=== PATIENT | female | born 1980 | race Caucasian/White ===

== ENCOUNTER → 2017-11-26 16:26 | Outpatient (CLI) | payer OTHER, SELFPAY ==
[2017-11-26 17:40] LABS: Absolute Lymphocyte Count 2.09 X10^3/ul (0.83-4.51); Absolute Neutrophil Count 5.1 X10^3/uL (2.0-7.7); Basophil# 0.02 X10^3/uL; Basophil% 0.3 % (0-1); Eosinophil# 0.18 X10^3/uL; Eosinophils% 2.3 % (0-5); Hematocrit 42.3 % (37-47); Hemoglobin 14.1 g/dl (12.0-15.0); Lymphocyte # 2.09 X10^3/ul (4.0); Lymphocyte % 26.7 % (19-41); Mean Corp Hgb Conc 33.3 g/gl (32-36); Mean Corpuscular Hgb 30.1 pg (27.0-32.0); Mean Corpuscular Volume 90.4 fL (81-99); Mean Platelet Vol. 10.7 fl (6.2-12.0); Monocyte# 0.43 X10^3/uL; Monocyte% 5.5 % (0-10); Neutrophil # 5.08 X10^3/uL (2.7-7.7); Neutrophil % 64.9 % (47-70); Platelet Count 174 K/mm3 (150-450); RBC Distribution Width SD 42.7 fl (35.1-43.9); Red Blood Count 4.68 M/mm3 (4.2-5.4); White Blood Count 7.8 K/mm3 (4.4-11.0)
[2017-11-26 18:05] LABS: POSITIVE COUNT NO; POSITIVE DIFFERENTIAL NO; POSITIVE MORPHOLOGY NO
== END ==
PROVIDERS: Family Provider Family Medicine; PCP Family Medicine; Visit Provider Family Medicine
DX: N92.1 Excessive and frequent menstruation with irregular cycle (principal)
CPT/HCPCS: 36415; 85025

== ENCOUNTER → 2017-12-02 07:54 | Outpatient (CLI) | payer OTHER, SELFPAY ==
--- NOTE | 2017-12-02 07:58 | US_ITS ---
STUDY: ABDOMINAL ULTRASOUND REASON FOR EXAM: Female, 36 years old. Right upper quadrant pain. TECHNIQUE: Transabdominal ultrasound was performed with real-time and static stubbs scale imaging. TECHNICAL QUALITY: Adequate. COMPARISON: None. FINDINGS: Liver: The liver measures 16 cm. There is normal echogenicity of the liver. The bile ducts are within normal limits. There is hepatic color flow. The direction of portal flow is hepatopetal. There is no demonstrated mass lesion. Portal vein measurement: Gallbladder: Normal distended gallbladder. The gallbladder wall measures 1.6 mm. There is a negative sonographic Honeycutt's sign. There is no pericholecystic fluid. There are no gallstones. Common Bile Duct (C.B.D.): The common bile duct measures 4.2 mm. Pancreas: Normal size of the head, body and tail of the pancreas. There is normal echogenicity of the pancreas. There is no demonstrated pancreatic mass or cyst. Spleen: Normal size of the spleen. The spleen measures 9.6 cm. Right Kidney: Normal size of the right kidney. The right kidney measures 10.2 cm. Normal renal cortex. The right cortex measures 1.7 cm. There is no demonstrated renal mass or cyst. There is no right hydronephrosis. Left Kidney: Normal size of the left kidney. The left kidney measures 10.2 cm. Normal renal cortex. The left cortex measures 1.1 cm. There is no demonstrated renal mass or cyst. There is no left hydronephrosis. Aorta: 1.9 cm I.V.C.: The IVC is patent. There is no ascites. US/Abdomen Complete IMPRESSION: Normal abdominal ultrasound examination. Electronically Signed: Franco Strickland MD at 9:23 EDT , Service support ,
== END ==
PROVIDERS: Family Provider Family Medicine; PCP Family Medicine; Visit Provider Family Medicine
DX: R10.11 Right upper quadrant pain (principal)
CPT/HCPCS: 76700

== ENCOUNTER → 2018-02-09 10:54 | Outpatient (CLI) | payer OTHER, SELFPAY ==
[2018-02-09 11:34] LABS: Absolute Lymphocyte Count 1.22 X10^3/ul (0.83-4.51); Absolute Neutrophil Count 4.2 X10^3/uL (2.0-7.7); Basophil# 0.01 X10^3/uL; Basophil% 0.2 % (0-1); Eosinophil# 0.07 X10^3/uL; Eosinophils% 1.2 % (0-5); Hemoglobin 13.5 g/dl (12.0-15.0); Lymphocyte # 1.22 X10^3/ul (4.0); Lymphocyte % 20.9 % (19-41); Mean Corp Hgb Conc 32.9 g/gl (32-36); Mean Corpuscular Hgb 29.9 pg (27.0-32.0); Mean Corpuscular Volume 90.9 fL (81-99); Mean Platelet Vol. 11.1 fl (6.2-12.0); Monocyte# 0.36 X10^3/uL; Monocyte% 6.2 % (0-10); Neutrophil # 4.17 X10^3/uL (2.7-7.7); Neutrophil % 71.3 % (47-70); Platelet Count 159 K/mm3 (150-450); RBC Distribution Width CV 12.8 % (11.6-14.6); RBC Distribution Width SD 42.3 fl (35.1-43.9); Red Blood Count 4.51 M/mm3 (4.2-5.4); White Blood Count 5.8 K/mm3 (4.4-11.0)
[2018-02-09 11:39] LABS: POSITIVE COUNT NO; POSITIVE DIFFERENTIAL NO; POSITIVE MORPHOLOGY NO
[2018-02-09 11:58] LABS: Anion Gap 7 (5-15); BUN 7 mg/dL (7-18); BUN/Creat Ratio 9.3 RATIO (10-20); Calcium,Total 8.5 mg/dL (8.5-10.1); Chloride 108 mmol/L (98-107); Creatinine, Serum 0.75 mg/dL (0.55-1.02); EST Glomerular Filtration Rate 92 mL/min (>60); Est Glom Filt Rate - Afr Amer 111 mL/min (>60); Glucose 83 mg/dL (74-106); Magnesium 2.1 mg/dL (1.6-2.6); Potassium 3.8 mmol/L (3.5-5.1); Sodium Level 142 mmol/L (136-145); Thyroid Stim Hormone (TSH) 0.75 uIU/mL (0.358-3.74)
== END ==
PROVIDERS: Family Provider Family Medicine; PCP Family Medicine; Visit Provider Internal Medicine Cardiovascular Disease
DX: I47.1 Supraventricular tachycardia (principal)
CPT/HCPCS: 36415; 80048; 83735; 84443; 85025

== ENCOUNTER → 2018-02-10 12:43 | Outpatient (CLI) | payer OTHER, SELFPAY | PROVIDERS: Family Provider Family Medicine; PCP Family Medicine; Visit Provider Internal Medicine Cardiovascular Disease | DX: I47.1 Supraventricular tachycardia (principal) | CPT/HCPCS: 93225; 93226; 93306 ==

== ENCOUNTER → 2018-08-01 14:05 | Outpatient (CLI) | payer OTHER, SELFPAY ==
[2018-08-01 11:43] VITALS: BMI 23.6
[2018-08-01 15:05] LABS: Bacteria 0 SEEN /hpf (None Seen); Mucous, Urine 0 SEEN /hpf (<or=2+); White Blood Cells 0 SEEN /hpf (0-5)
[2018-08-01 15:52] LABS: Color, Urine Yellow (Yellow); Glucose, Dipstick Normal (Normal); Ketone-Dipstick Negative (Negative); Leukocyte Esterase-Dipstick Negative /ul (Negative); Nitrite-Dipstick Negative (Negative); Occult Blood-Urine 250 /ul (Negative); Protein-Dipstick 15 mg/dl (Negative); Specific Gravity, Urine 1.005 (1.002-1.030); Urine Bilirubin Dipstick Negative (Negative); Urine Clarity Clear (Clear); Urine Urobilinogen Normal (Normal)
[2018-08-01 17:19] LABS: Red Blood Cells-Urine 10-25 SEEN /hpf (0-5); Squamous Epithelial Cells - UA 0-5 SEEN /hpf (5-10)
== END ==
PROVIDERS: Family Provider Family Medicine; PCP Family Medicine; Referring Provider Physician Assistant Surgical; Visit Provider Physician Assistant Surgical
DX: R31.9 Hematuria, unspecified (principal)
CPT/HCPCS: 81001; 87086; 87088

== ENCOUNTER → 2018-08-11 06:42 | Outpatient (CLI) | payer OTHER, SELFPAY ==
[2018-08-01 11:43] VITALS: BMI 23.6
--- NOTE | 2018-08-11 06:48 | CT_ITS ---
STUDY: CT ABDOMEN AND PELVIS WITH AND WITHOUT CONTRAST REASON FOR EXAM: Female, 37 years old. Gross hematuria. History of kidney stone. RADIATION DOSAGE (If Supplied By Facility): CTDIvol = ( 8.31 ) mGy, DLP = ( 668.69 ) mGycm TECHNIQUE: Transaxial images were obtained from the dome of the diaphragm to the symphysis pubis without oral contrast. 100 ml of Isovue 300 contrast was administered. Sagittal and coronal images were reconstructed. Individualized dose optimization techniques were used for this CT. COMPARISON: Ultrasound abdomen 12/02/2017. X-ray abdomen 07/16/2014. FINDINGS: Body wall soft tissues: No acute process. Osseous structures: No acute process. Inferior chest: No acute process. Hepatobiliary: Normal. Pancreas: No acute process. Spleen: Normal. Adrenal glands: Normal. Urogenital: There are 2 small nonobstructing calyceal calculi of the left kidney, largest in the inferior pole calyx measuring about 3 mm. Multiple additional tiny dense blush is are present in the calyces. No left hydronephrosis or hydroureter. On the right, 2 small nonobstructing calyceal calculi inferior pole the largest measuring about 5 x 4 mm. Multiple additional tiny dense blush present in the calyces. There is no hydronephrosis or hydroureter but there is mild induration of the fat surrounding portions of the ureter which may reflect recently completed calculus passage. There is a calculus behind the symphysis pubis that may lie within the proximal urethra, measuring 2.7 mm. Unremarkable uterus, ovaries and adnexa. Pelvic floor and sidewalls and retroperitoneum: No mass or adenopathy. Vasculature: No acute process. Stomach: No acute process. Small bowel and mesentery: No acute process. Large bowel: Normal appendix. There is mild thickening of the wall of the splenic flexure and ascending colon probably due to underdistention, without inflammatory induration in the adjacent fat. Normal rectum. Free fluid or free air: None. CT/CT Abd/Pelvis W/WO Contrast IMPRESSION: Retained nonobstructing calyceal calculi of the kidneys, and multiple additional very tiny dense foci/blood of the calyces and pyramids, suggesting the presence of medullary nephrocalcinosis. There is no acute hydronephrosis or hydroureter. There is mildly increased conspicuity of the right ureter, induration in the adjacent fat with perhaps minimal wall thickening suggesting recently completed calculus passage. There is a small calcification posterior to the symphysis pubis which could lie within the proximal urethra. Electronically Signed: Cristiano Tyson MD at 9:02 EST Tel , Service support ,
== END ==
PROVIDERS: Family Provider Family Medicine; PCP Family Medicine; Referring Provider Nurse Practitioner Adult Health; Visit Provider Nurse Practitioner Adult Health
DX: R31.0 Gross hematuria (principal)
CPT/HCPCS: 74178; Q9967

== ENCOUNTER → 2018-12-30 16:09 | Outpatient (CLI) | payer OTHER, SELFPAY ==
[2018-12-22 13:24] VITALS: BMI 22.9
[2019-01-05 08:25] LABS: HPV Reflexed? NOT INDICATED
== END ==
PROVIDERS: Visit Provider Obstetrics & Gynecology
DX: Z12.4 Encounter for screening for malignant neoplasm of cervix (principal)
CPT/HCPCS: 87624; 88175; G0145

== ENCOUNTER 2019-12-10 17:52 | Emergency (ER) | payer OTHER, SELFPAY ==
[2019-01-30 11:50] VITALS: BMI 22.9
[2019-12-10 17:53] VITALS: BP 147/84; PULSE 82; RESP 14; TEMP 36.5; O2SAT 100; BMI 22.7
--- NOTE | 2019-12-10 18:04 | CT_ITS ---
STUDY: CT ABDOMEN AND PELVIS WITHOUT CONTRAST REASON FOR EXAM: Female, 38 years old. LT FLANK PAIN X 2 DAYS -- HX:KIDNEY STONES RADIATION DOSAGE (If Supplied By Facility): CTDIvol = ( 6.26 ) mGy, DLP = ( 295.48 ) mGycm TECHNIQUE: Transaxial images were obtained from the dome of the diaphragm to the symphysis pubis without oral contrast, and without intravenous contrast. Sagittal and coronal images were reconstructed. Individualized dose optimization techniques were used for this CT. COMPARISON: Previous study of 08/11/2018 FINDINGS: The visualized lung bases are unremarkable. The visualized portions of the heart are within normal limits. Normal liver. Normal gallbladder and extrahepatic biliary system. Normal spleen. Normal pancreas. Normal bilateral adrenal glands. There are multiple nonobstructing right renal calculi measuring up to 1.2 x 0.7 cm. Multiple nonobstructing left renal calculi are also noted measuring up to 0.4 cm. There is mild left hydronephrosis. There is no left hydroureter. No definite obstructing left ureteral calculus is identified. Normal visualized stomach. Normal small intestine. Normal colon. The appendix is visualized and appears normal. Normal abdominal aorta. Normal inferior vena cava. Normal retroperitoneum. Normal urinary bladder. The uterus and adnexal structures are unremarkable. There are multiple bilateral pelvic calcifications consistent with phleboliths. There is a small umbilical hernia containing fat. There are degenerative changes of the lumbosacral junction. CT/Abdomen/Pelvis without Cont IMPRESSION: 1. Multiple bilateral nonobstructing renal calculi. There is a mild left hydronephrosis. There is no definite evidence of left hydroureter or ureterolithiasis. 2. There are numerous bilateral pelvic phleboliths. 3. Small fat-containing umbilical hernia. 4. Degenerative changes of the lumbosacral junction. 5. There is no evidence of free intra-abdominal or intrapelvic air, fluid, or inflammatory process. Electronically Signed: Getachew Oconnor MD at 19:53 EDT , Service support ,
--- NOTE | 2019-12-10 18:06 | ED.DCSUM_ITS ---
- ER Visit Summary Date of Service: 12/10/19 Chief Complaint: Left flank pain History of Present Illness: The patient is a 38 F presenting with left flank pain. This started on Wednesday. She states the pain has been intermittent but progressively worsening. She had nausea vomiting x1 on . She complains of dysuria and hematuria. She denies fever. She has tried ibuprofen at home. She has a history of previous kidney stones requiring lithotripsy. Physical Examination: Vitals are stable. Patient is afebrile. Alert no acute distress. HEENT exam is unremarkable. Neck is supple. Lungs are clear and equal bilaterally. Heart is regular rate and rhythm. Abdomen is soft nontender nondistended, no guarding or rebound. Left CVA tenderness Extremities are unremarkable. Skin is warm and dry. Remainder of exam is unremarkable. Emergency Department Course and Treatment: Patient was given morphine, Zofran IV with improvement. Urinalysis shows over 100 red blood cells, 5-10 white blood cells. Urine culture was sent. CT abdomen pelvis shows multiple bilateral nonobstructing renal calculi. There is a mild left hydronephrosis. There is no definite evidence of left hydroureter or ureterolithiasis. There are numerous bilateral pelvic phleboliths. Small fat-containing umbilical hernia. Degenerative changes of the lumbosacral junction. There is no evidence of free intra-abdominal or intrapelvic air, fluid, or inflammatory process. On reevaluation, patient is feeling improved. Discussed possibility of recently passed kidney stone. She is given Keflex and a prescription for Keflex. She is given short course of [place]. Advised to follow-up with Dr. Keith. Advised return to the ED for worsening complaints. Disposition: Discharge home Impression: Flank pain, recently passed kidney stone This note was generated with [employer] dictation software. It may contain incorrect words, spelling, and punctuation that were not noted in review of the chart prior to signing ED Disposition - Plan for ED Patient: Instructions: ED RENAL STONE Passed Prescriptions: Cephalexin [Keflex] 500 mg PO Q12 #14 cap Prescription Printed Hydrocodone Bitart/Apap 5-325 [[place] 5MG-325MG] 1 tab PO Q6H PRN PRN 3 Days #10 tab PRN Reason: Pain Prescription Printed Referrals: Rosy Teague MD [Primary Care Provider] - Michoacano Keith MD [STAFF PHYSICIAN] -
[2019-12-10] MEDS: Ondansetron 4 MG/2 ML Vial IV (18:33)
[2019-12-10] MEDS: Morphine 4 MG/ML Syringe IV (18:33)
[2019-12-10 19:00] LABS: Color, Urine Yellow (Yellow); Glucose, Dipstick Normal (Normal); Ketone-Dipstick Negative (Negative); Leukocyte Esterase-Dipstick 100 /ul (Negative); Nitrite-Dipstick Negative (Negative); Occult Blood-Urine 250 /ul (Negative); Protein-Dipstick 100 mg/dl (Negative); Specific Gravity, Urine 1.025 (1.002-1.030); Urine Bilirubin Dipstick Negative (Negative); Urine Clarity Sl. Cloudy (Clear); Urine Urobilinogen 1 mg/dl (Normal)
[2019-12-10 19:10] LABS: Red Blood Cells-Urine > 100 SEEN /hpf (0-5)
[2019-12-10 19:12] LABS: Squamous Epithelial Cells - UA 0-5 SEEN /hpf (5-10); White Blood Cells 5-10 SEEN /hpf (0-5)
[2019-12-10 19:14] LABS: Mucous, Urine 2+ /hpf (<or=2+)
[2019-12-10 19:15] LABS: Bacteria RARE /hpf (None Seen)
--- NOTE | 2019-12-10 20:03 | ED.DEP ---
ED Disposition - Plan for ED Patient: Instructions: ED RENAL STONE Passed Prescriptions: Cephalexin [Keflex] 500 mg PO Q12 #14 capsule Hydrocodone Bitart/Apap 5-325 [[place] 5MG-325MG] 1 tablet PO Q6H PRN PRN 3 Days #10 tablet PRN Reason: Pain Referrals: Rosy Teague MD [Primary Care Provider] -
--- NOTE | 2019-12-10 20:05 | DCINST.ED_ITS ---
ED Disposition - Plan for ED Patient: Instructions: ED RENAL STONE Passed Prescriptions: Cephalexin [Keflex] 500 mg PO Q12 #14 cap Prescription Printed Hydrocodone Bitart/Apap 5-325 [[place] 5MG-325MG] 1 tab PO Q6H PRN PRN 3 Days #10 tab PRN Reason: Pain Prescription Printed Referrals: Rosy Teague MD [Primary Care Provider] - Michoacano Keith MD [STAFF PHYSICIAN] -
[2019-12-10] MEDS: Cephalexin 250 MG Capsule 500 MG PO (20:19)
[2019-12-10 20:25] VITALS: BP 125/70; PULSE 56; RESP 16
== END 2019-12-10 20:26 | disposition home or self-care (01) ==
LOC: ED 19:27
PROVIDERS: Emergency Provider Emergency Medicine; PCP Family Medicine
DX: R10.9 Unspecified abdominal pain (principal)
CPT/HCPCS: 74176; 81001; 87086; 87088; 96374; 96375; 99284; A4216; J2405

== ENCOUNTER 2019-12-13 07:30 | Day surgery (SDC) | payer OTHER, SELFPAY ==
[2019-12-13] VITALS (9 sets, daily range): BP systolic 111–132; BP diastolic 69–86; PULSE 58–72; RESP 15–16; TEMP 36.5–36.7; O2SAT 94–100; BMI 22.2
[2019-12-13 08:01] LABS: Internal QC Validated? YES +Cl - CLEAR BKGD; Pregnancy, Urine Negative Negative
[2019-12-13] MEDS: Lactated Ringers 1,000 ML 100 ML IV (08:15)
[2019-12-13] MEDS: Cefazolin 2 GM in 0.9% Normal Saline 100 ML IV (09:27)
--- NOTE | 2019-12-13 09:31 | PCM.HP.STD ---
History of Present Illness Date of Admission: 12/13/19 Chief Complaint: Left ureteral calculi with obstruction The patient is a 39 year old female who presented to the office with obstructing stone large in the distal left ureter she also has some small fragments in the left kidney, she also has a large fragment in the right kidney. Plan today is to start with treatment of the left stones were to treat the left distal ureteral calculi and also the stones in the kidney and the left kidney working to laser those she will have a stent on the left side and then will treat the right side at a separate setting. She will essentially a stent probably for a few days and will laser out the stones on the left side today. Past Medical History Past Medical History (Chronic Problems): Chronic Problems (Last Reviewed 01/30/19 @ 11:51 by Kelly Kumar) Rapid palpitations (Chronic) heterozygous thrombocytopenia (Chronic) Paroxysmal supraventricular tachycardia (Chronic) Medical History: Medical History (Last Reviewed 01/30/19 @ 11:51 by Kelly Kumar) heterozygous thrombocytopenia (Chronic) Paroxysmal supraventricular tachycardia (Chronic) I47.1 Asthma J45.909 History of kidney stones Z87.442 Pituitary adenoma D35.2 Renal calculus, bilateral N20.0 Allergies ciprofloxacin [From Cipro] Adverse Reaction (Verified 12/13/19 07:52) PT UNSURE OF REACTION Home Medications: Ambulatory Orders Medication Instructions Recorded norgestimate-ethinyl estradiol 1 tab PO QDAY 02/09/18 metoprolol succinate 25 mg 25 mg PO QDAY #90 tab 11/22/19 tablet,extended release 24 hr Cephalexin [Keflex] 500 mg PO Q12 #14 cap 12/10/19 Ibuprofen 600 mg PO PRN PRN 12/12/19 Cephalexin [Keflex] 500 mg PO Q8 #10 cap 12/13/19 Hydrocodone/Acetaminophen [[place] 1 each PO Q4H PRN PRN 5 Days #14 12/13/19 5-325 Tablet] tablet Phenazopyridine [Pyridium] 100 mg PO TID PRN PRN 5 Days #10 12/13/19 tab Surgical History: Surgical History (Last Reviewed 01/30/19 @ 11:51 by Kelly Kumar) H/O lumpectomy Z98.890 History of lithotripsy Z98.890 Status post cryoablation of arrhythmia Onset Date: 04/30/09 Z98.890, Z86.79 slow pathway Surgical History: no surgical history Smoking Status: Never smoker Tobacco Use: Non-smoker Review of Systems Constitutional: Denies: Chills, Fever, Weight Change HEENT: Denies: Head Aches, Sinus Congestion, Sinus Drainage Cardiovascular: Denies: Chest Pain, Palpitations Respiratory: Denies: Cough, Shortness of breath at rest, Sputum production Gastrointestinal: Denies: Abdominal Pain, Nausea, Vomiting Genitourinary: Denies: Dysuria Musculoskeletal: Denies: Joint Pain, Joint Tenderness Skin: Denies: Rash, Wounds Neurological: Denies: Numbness, Tingling, Focal weakness Psychiatric: Denies: Anxiety, Depression, Homicidal Ideations, Suicidal Ideations Hematologic/ Lymphatic: Denies: Easy Bruising, Easy Bleeding VTE Information - Inpt Only VTE Present on Admission: No VTE Mechan Device Prophylaxis: SCD's - Physical Exam Vitals/I&O's: Vital Signs Temp Pulse Resp BP Pulse Ox 97.7 F L 72 15 132/86 H 100 12/13/19 08:04 12/13/19 08:04 12/13/19 08:04 12/13/19 08:04 12/13/19 08:04 Oxygen Delivery Method Room Air Weight: 62.5 kg Body Mass Index (BMI) 22.2 General: Alert, Oriented x3, Cooperative HEENT: Atraumatic, PERRLA, EOMI, Normocephalic Neck: Supple, No JVD, Negative Carotid Bruits Lungs: Clear to auscultation, Normal air movement Cardiovascular: Regular rate, No murmurs Abdomen: Bowel Sounds Present, Soft, Non Tender Extremities: No edema, Capillary Refill Less than 3 Seconds Skin: No rashes, No breakdown Musculoskeletal: No Tenderness to Palpation of Joints or Extremities Neurological: Cranial nerves II-XII grossly intact Psych/Mental Status: Normal Affect, Appropriate Microbiology Past 72 Hours 12/12/19 12:00 Mucosa - Nasopharyngeal Coronavirus COVID-19 PCR - Final Laboratory Results 12/13/19 07:55: Urine Test Negative Current Medications Cefazolin Sodium 2 gm/ Sodium (Chloride) 110 mls @ 150 mls/hr IV PREOP ONE Stop: 12/13/19 10:08 Lactated Ringer's () 1,000 mls @ 100 mls/hr IV .Q10H DERIK Last Admin: 12/13/19 08:15 Dose: 100 mls/hr Documented by: Assessment/Plan All Active Problems (Last Reviewed 01/30/19 @ 11:51 by Kelly Kumar) Insect bite (Acute) Hematuria, undiagnosed cause (Resolved) Plan for treatment on the left side with left ureteroscopy laser lithotripsy of stones and stent in the left side she also need balloon dilation. Essential Procedure Criteria Procedure Essential: Yes Criteria Note: On 10/17/2019 the [facility] ([facility]) Public Order signed by [facility] Director Aditi Bermudez M.D., regarding the Management of Non-Essential Surgeries and Procedures for the purpose of preserving Personal Protective Equipment (PPE) and critical hospital capacity and resources within [place] went into effect as of 10/18/2019 at 5:00PM. According to the [facility] Public Order: This action will remain in full force and effect until the State of Emergency declared by the Governor no longer exists or the Director of the [facility] rescinds or modifies this Order.. This [facility] order stated all non-essential or elective surgeries and procedures that utilize PPE should be delayed unless there is undue risk to the current or future health of a patient. After reviewing the aforementioned [facility] Public Order and the patients clinical case, I have determined that the scheduled procedure meets the criteria to go forward. Risk to Patient if Procedure Delayed: Risk of rapidly worsening to severe symptoms if delayed
--- NOTE | 2019-12-13 09:33 | PCM.DC.URO ---
Discharge Diet: No Restrictions Discharge Activity: Return to Normal Activity, May Not Drive - for 2 days. Additional Activity Instructions:: Please be aware that pain medications may cause nausea. You should typically eat light foods as you take your pain medication. Pain medication may cause constipation, if this is a problem for you, please discuss with your doctor. Call your doctor if you observe: Fever of 101 or Higher Suture Line Care: Avoid Pulling/Pushing, Avoid Pinching/Bending Allergies/Adverse Reactions: Allergies ciprofloxacin [From Cipro] Adverse Reaction (Verified 12/13/19 07:52) PT UNSURE OF REACTION Medications to take at Discharge norgestimate-ethinyl estradiol 1 tab PO QDAY 02/09/18 metoprolol succinate 25 mg tablet,extended release 24 hr 25 mg PO QDAY #90 tab 11/22/19 Cephalexin [Keflex] 500 mg PO Q12 #14 cap 12/10/19 Ibuprofen 600 mg PO PRN PRN 12/12/19 Cephalexin [Keflex] 500 mg PO Q8 #10 cap 12/13/19 Hydrocodone/Acetaminophen [[place] 5-325 Tablet] 1 each PO Q4H PRN PRN 5 Days #14 tablet 12/13/19 Phenazopyridine [Pyridium] 100 mg PO TID PRN PRN 5 Days #10 tab 12/13/19 The following prescriptions were given: Cephalexin [Keflex] 500 mg PO Q8 #10 cap Transmission Status: Pending to [facility] Hydrocodone/Acetaminophen [[place] 5-325 Tablet] 1 each PO Q4H PRN PRN 5 Days #14 tablet PRN Reason: Pain Score 1-10/10 Transmission Status: Sent to [facility] Phenazopyridine [Pyridium] 100 mg PO TID PRN PRN 5 Days #10 tab PRN Reason: stent pain Transmission Status: Pending to [facility] Primary Care Physician: Rosy Teague MD [Primary Care Provider] - Test Results: Test results from this visit will be discussed in further detail at your follow-up appointment, if applicable. Please Follow Up With: Michoacano Keith MD When: please call to make an appointment.
[2019-12-13] MEDS: Lubricating Jelly 60 GM Tube 30 GM TOPICAL (09:38)
--- NOTE | 2019-12-13 10:06 | PCM.OPRPT ---
Report of Operation Date of Procedure: 12/13/19 Pre-Operative Diagnosis: Left ureteral and renal calculi Post-Operative Diagnosis: Same Surgery/Procedure Performed:: Cystoscopy left retrograde pyelogram interpretation fluoroscopic images, balloon dilation of the left ureter, left ureteroscopy laser lithotripsy of stone, left stent placement. Description of Surgical Findings:: 39-year-old female presented to the office with obstructing stone in the distal left ureter she is failed to pass the stone spontaneously she now presents to the hospital for left ureteroscopy laser lithotripsy. She was taken back to the operating room after smooth induction of general anesthesia she was placed supine on the table the legs were in dorsolithotomy position, she was given IV antibiotics and SCDs. After the patient was prepped and draped in usual sterile fashion went into the bladder with a 21 Gu[place]ian rigid cystourethroscope the entire bladder was normal the left and right ureter. Normal I then cannulated the left ureter orifice with a wire and immediately could feel the wire hit the stone took a little bit of minimal manipulation to get past the stone and then once a wire was passed a stone then advance a balloon dilator up to the stone but not beyond it and balloon dilated the distal ureter. I then went in next to the wire left the wire in place a safety wire, and went and next the wire with a offset Olympus 7 Guamanian ureteroscope was able to get into the distal ureter but could not engage the stone could only see a little edge of the stone but just enough to get started lasering. I then started lasering the stone and as it broke up the ureter start dilating up and more and then I was able to get past the area of narrowing in the ureter and got to the stone with laser little tiny pieces. After this distal stone was lasered little tiny pieces a look back in the ureter had opened up after going through with the semirigid ureteroscope. I then left the wire in place went over the wire with a flexible ureteroscope performed a retrograde pyelogram see contrast going up to the kidney contrast in the kidney and then went up with the flexible ureteroscope up to the area of the UPJ the UPJ was a little bit angulated had to use a wire to get through this put her back through the flexible ureteroscope and then was up in the kidney. Once in the kidney then I inspected the upper pole midpole lower pole the kidney most of the calcification fragment seen on Can were stone stuck in the kidney there was only one free-floating stone in the kidney this was lasered little tiny pieces the other stone fragments were all papillary calcifications in the kidney itself or not free-floating and therefore these were not lasered since there were no free-floating stones. This was done to avoid injury to the kidney and lasering the stones that were stuck and embedded in the kidney the not free-floating. After treating the free-floating stone in the lower pole the kidney that I worked my way down the ureter and then I put a wire up the left side and then over wire advanced a stent we left a stent 6 Gu[place]ian by 24 cm stent with stent in position left the string of the stent long enough so that stent could be extracted she can see the patient next week patient can see the nurse practitioner for simple stent removal. After this she will need to be set up for surgery on the right side she has stones in the right side. Type of Anesthesia:: General Drains: stent left side. - Admit VTE Documentation VTE Present on Admission: No VTE Mechan Device Prophylaxis: SCD's
[2019-12-13] MEDS: Ketorolac 30 MG/ML Syringe IV (10:29)
== END 2019-12-13 11:52 | disposition home or self-care (01) ==
LOC: SDC 07:34 → AC 07:34
PROVIDERS: Anesthesiology; PCP Family Medicine; Referring Provider Urology; Visit Provider Urology
PROC: 0TJ98ZZ Inspection of Ureter, Via Natural or Artificial Opening Endoscopic (ICD-10-PCS; CPT 52352; principal; 2019-12-13 09:15)
DX: N20.2 Calculus of kidney with calculus of ureter (principal); Z11.59 Encounter for screening for other viral diseases; J45.909 Unspecified asthma, uncomplicated; Z87.442 Personal history of urinary calculi; Z79.899 Other long term (current) drug therapy
CPT/HCPCS: 00918; 52356; 76000; 81025; 87635; G2023; J7120; C1769; C2617; J2405; U0002

== ENCOUNTER → 2019-12-18 14:18 | Outpatient (CLI) | payer OTHER, SELFPAY ==
[2019-12-13 08:04] VITALS: BMI 22.2
--- NOTE | 2019-12-18 14:23 | RAD_ITS ---
STUDY: X-RAY - ABDOMEN/PELVIS REASON FOR EXAM: Female, 39 years old. HX OF KIDNEY STONES BOTH SIDES. MOST RECENT LEFT SIDE WITH STENT PLACED ABOUT A WEEK AGO. TECHNIQUE: Single AP view of the abdomen / pelvis. COMPARISON: None. FINDINGS: Multiple bilateral kidney stones are noted the largest is in the right kidney measures 12 mm in diameter. There is a left ureter stent in good position. Normal visualized lung bases. There is an unremarkable bowel gas pattern. There is no demonstrated free abdominal air. The visualized liver, spleen are grossly normal in size and morphology. Normal soft tissue structures. Normal visualized osseous structures. RAD/Abdomen Single View IMPRESSION: Multiple bilateral kidney stones are noted the largest is in the right kidney measures 12 mm in diameter. There is a left ureter stent in good position. Electronically Signed: Eran Jones, at 15:24 EDT Tel , Service support ,
== END ==
PROVIDERS: PCP Family Medicine; Referring Provider Nurse Practitioner Adult Health; Visit Provider Nurse Practitioner Adult Health
DX: N20.0 Calculus of kidney (principal)
CPT/HCPCS: 74018

== ENCOUNTER 2019-12-27 10:54 | Day surgery (SDC) | payer OTHER, SELFPAY ==
[2019-12-13 08:04] VITALS: BMI 22.2
[2019-12-26 15:21] VITALS: BMI 22.4
[2019-12-27 11:16] VITALS: BP 126/75; PULSE 66; RESP 14; TEMP 37.1; O2SAT 100; BMI 22.4
[2019-12-27 11:24] LABS: Internal QC Validated? YES +Cl - CLEAR BKGD; Pregnancy, Urine Negative Negative
[2019-12-27] MEDS: Lactated Ringers 1,000 ML 100 ML IV ×2 (11:40→13:45)
--- NOTE | 2019-12-27 13:28 | PCM.HP.STD ---
History of Present Illness Date of Admission: 12/27/19 Chief Complaint: Large 1 cm right renal calculi in the renal pelvis The patient is a 39 year old female who presents to the operating room today for ureteroscopy and laser of a large stone in the right kidney we decided to proceed with ureteroscopy given her prior history of very hard stones needing multiple procedures in the past. Plan to do right ureteroscopy laser lithotripsy and stent placement on the right side. Past Medical History Past Medical History (Chronic Problems): Chronic Problems (Last Reviewed 12/26/19 @ 15:[address] Bartolo Rodríguez MD) Rapid palpitations (Chronic) Paroxysmal supraventricular tachycardia (Chronic) Medical History: Medical History (Last Reviewed 12/27/19 @ 13:[address] Michoacano Keith MD) Paroxysmal supraventricular tachycardia (Chronic) I47.1 Thrombocytopenia D69.6 Asthma J45.909 History of kidney stones Z87.442 Pituitary adenoma D35.2 Renal calculus, bilateral N20.0 Allergies ciprofloxacin [From Cipro] Adverse Reaction (Verified 12/26/19 15:22) PT UNSURE OF REACTION Home Medications: Ambulatory Orders Medication Instructions Recorded norgestimate-ethinyl estradiol 1 tab PO QDAY 02/09/18 metoprolol succinate 25 mg 25 mg PO QDAY #90 tab 11/22/19 tablet,extended release 24 hr Ibuprofen 600 mg PO PRN PRN 12/12/19 Cephalexin [Keflex] 500 mg PO Q8 #10 cap 12/27/19 Hydrocodone/Acetaminophen [[place] 1 each PO Q4H PRN PRN 5 Days #14 12/27/19 5-325 Tablet] tablet Surgical History: Surgical History (Last Reviewed 12/26/19 @ 15:[address] Bartolo Rodríguez MD) H/O lumpectomy Z98.890 History of lithotripsy Z98.890 Status post cryoablation of arrhythmia Onset Date: 04/30/09 Z98.890, Z86.79 slow pathway Surgical History: no surgical history Smoking Status: Never smoker Tobacco Use: Non-smoker Review of Systems Constitutional: Denies: Chills, Fever, Weight Change HEENT: Denies: Head Aches, Sinus Congestion, Sinus Drainage Cardiovascular: Denies: Chest Pain, Palpitations Respiratory: Denies: Cough, Shortness of breath at rest, Sputum production Gastrointestinal: Denies: Abdominal Pain, Nausea, Vomiting Genitourinary: Denies: Dysuria Musculoskeletal: Denies: Joint Pain, Joint Tenderness Skin: Denies: Rash, Wounds Neurological: Denies: Numbness, Tingling, Focal weakness Psychiatric: Denies: Anxiety, Depression, Homicidal Ideations, Suicidal Ideations Hematologic/ Lymphatic: Denies: Easy Bruising, Easy Bleeding VTE Information - Inpt Only VTE Present on Admission: No VTE Mechan Device Prophylaxis: SCD's - Physical Exam Vitals/I&O's: Vital Signs Temp Pulse Resp BP Pulse Ox 98.8 F 66 14 126/75 H 100 12/27/19 11:16 12/27/19 11:16 12/27/19 11:16 12/27/19 11:16 12/27/19 11:16 Oxygen Delivery Method Room Air Weight: 61 kg Body Mass Index (BMI) 22.4 General: Alert, Oriented x3, Cooperative HEENT: Atraumatic, PERRLA, EOMI, Normocephalic Neck: Supple, No JVD, Negative Carotid Bruits Lungs: Clear to auscultation, Normal air movement Cardiovascular: Regular rate, No murmurs Abdomen: Bowel Sounds Present, Soft, Non Tender Extremities: No edema, Capillary Refill Less than 3 Seconds Skin: No rashes, No breakdown Musculoskeletal: No Tenderness to Palpation of Joints or Extremities Neurological: Cranial nerves II-XII grossly intact Psych/Mental Status: Normal Affect, Appropriate Microbiology Past 72 Hours 12/26/19 16:35 Mucosa - Nasopharyngeal Coronavirus COVID-19 PCR - Final Laboratory Results 12/27/19 11:05: Urine Test Negative Current Medications Lactated Ringer's () 1,000 mls @ 100 mls/hr IV .Q10H DERIK Last Admin: 12/27/19 11:40 Dose: 100 mls/hr Documented by: Assessment/Plan All Active Problems (Last Reviewed 12/26/19 @ 15:[address] Bartolo Rodríguez MD) Hematuria, undiagnosed cause (Resolved) Insect bite (Resolved) Plan for right ureteroscopy laser lithotripsy of stone and stent placement.
--- NOTE | 2019-12-27 13:30 | PCM.DC.URO ---
Discharge Diet: No Restrictions Discharge Activity: Return to Normal Activity, May Not Drive - for 2 days., May not drive while taking narcotic pain medications. Additional Activity Instructions:: Please be aware that pain medications may cause nausea. You should typically eat light foods as you take your pain medication. Pain medication may cause constipation, if this is a problem for you, please discuss with your doctor. Allergies/Adverse Reactions: Allergies ciprofloxacin [From Cipro] Adverse Reaction (Verified 12/26/19 15:22) PT UNSURE OF REACTION Medications to take at Discharge norgestimate-ethinyl estradiol 1 tab PO QDAY 02/09/18 metoprolol succinate 25 mg tablet,extended release 24 hr 25 mg PO QDAY #90 tab 11/22/19 Ibuprofen 600 mg PO PRN PRN 12/12/19 Cephalexin [Keflex] 500 mg PO Q8 #10 cap 12/27/19 Hydrocodone/Acetaminophen [[place] 5-325 Tablet] 1 each PO Q4H PRN PRN 5 Days #14 tablet 12/27/19 The following prescriptions were given: Cephalexin [Keflex] 500 mg PO Q8 #10 cap Transmission Status: Pending to [facility] Hydrocodone/Acetaminophen [[place] 5-325 Tablet] 1 each PO Q4H PRN PRN 5 Days #14 tablet PRN Reason: Pain Score 1-10/10 Transmission Status: Sent to [facility] Primary Care Physician: Rosy Teague MD [Primary Care Provider] - Test Results: Test results from this visit will be discussed in further detail at your follow-up appointment, if applicable. Please Follow Up With: Michoacano Keith MD When: please call to make an appointment.
[2019-12-27] MEDS: Cefazolin 2 GM in 0.9% Normal Saline 100 ML IV (14:00)
--- NOTE | 2019-12-27 14:33 | PCM.OPRPT ---
Report of Operation Date of Procedure: 12/27/19 Pre-Operative Diagnosis: Right renal calculi Post-Operative Diagnosis: The same Surgery/Procedure Performed:: Cystoscopy, balloon dilation of the ureter, right retrograde pyelogram and interpretation fluoroscopic images, right ureteroscopy and laser of stent Description of Surgical Findings:: 39-year-old female taken back to the operating room after smooth induction of general anesthesia she was placed in dorsolithotomy position the urethra vaginally are prepped and draped in usual sterile fashion when the bladder with a 21 [place] rigid cystourethroscope cannulated the right ureteral orifice balloon dilated the right ureter orifice with a 12 English 10 cm balloon dilator this then allowed for ureteroscopy to be performed, I went up with the ureteroscope quite easily up into the kidney and I found the stone, I used a 200 ?m laser fiber and laser the stone little tiny pieces. Once the stone was completely lasered and the small little tiny gravel pieces then performed a retrograde pyelogram could see the contrast of the kidney but a wire into the ureteroscope and over the ureteroscope backloaded the stent it was a 6 English by 26 cm stent I pulled the wire the stent coiled in the kidney bladder good position I drained the patient bladder, I trimmed the string on the strength but long enough so that he should be be able to removed in the office and will see her next week with a KUB and stent removal with string Type of Anesthesia:: General Drains: stent right side - Admit VTE Documentation VTE Present on Admission: No VTE Mechan Device Prophylaxis: SCD's
[2019-12-27 14:51] VITALS: BP 122/84; BP 126/75; PULSE 93; RESP 17; TEMP 36.3; O2SAT 100
[2019-12-27 15:00] VITALS: BP 125/80; BP 126/75; PULSE 94; RESP 16; O2SAT 100
[2019-12-27 15:15] VITALS: BP 120/89; BP 126/75; PULSE 80; RESP 16; O2SAT 100
[2019-12-27 15:32] VITALS: BP 121/80; BP 126/75; PULSE 76; RESP 16; TEMP 36.8; O2SAT 100
[2019-12-27 16:14] VITALS: BP 119/80; BP 126/75; PULSE 55; RESP 16; TEMP 36.5; O2SAT 99
== END 2019-12-27 16:16 | disposition home or self-care (01) ==
LOC: SDC 10:56 → AC 10:57
PROVIDERS: Anesthesiology; PCP Family Medicine; Referring Provider Urology; Visit Provider Urology
PROC: 0TJ98ZZ Inspection of Ureter, Via Natural or Artificial Opening Endoscopic (ICD-10-PCS; CPT 52352; principal; 2019-12-27 12:55)
DX: N20.0 Calculus of kidney (principal); Z11.59 Encounter for screening for other viral diseases; I47.1 Supraventricular tachycardia; Z87.442 Personal history of urinary calculi; J45.20 Mild intermittent asthma, uncomplicated; I10 Essential (primary) hypertension
CPT/HCPCS: 52356; 76000; 81025; 87635; G2023; J7120; C1769; C2617; J2405; U0004

== ENCOUNTER → 2020-01-01 15:28 | Outpatient (CLI) | payer OTHER, SELFPAY ==
[2019-12-27 11:16] VITALS: BMI 22.4
--- NOTE | 2020-01-01 15:30 | RAD_ITS ---
STUDY: X-RAY - ABDOMEN/PELVIS REASON FOR EXAM: Female, 39 years old. Kidney stone, right side, stent TECHNIQUE: Single AP view of the abdomen / pelvis. COMPARISON: AP view of the abdomen and pelvis December 18, 2019; CT abdomen and pelvis December 10, 2019. FINDINGS: Non-visualized lung bases. There is an unremarkable bowel gas pattern. There is no demonstrated free abdominal air. The left double-J ureteral stent seen on previous exam has been removed. A double-J ureteral stent is now seen on the right, extending from the region of the renal pelvis to the urinary bladder. The right pelvic calculus seen on prior plain film exam is no longer present, but a nearly 1 cm fragment of that stone projects in the lower pole, and punctate fragments are seen near the cephalad retaining loop of the stent. A few punctate stones also project over the mid to lower pole of the left kidney. The visualized liver and spleen are grossly normal in size and morphology. There are stable calcified phleboliths in the pelvis. Stable mild degenerative changes of the mid to lower lumbar spine. RAD/Abdomen Single View IMPRESSION: 1. Right double-J ureteral stent now present. The previous left double-J ureteral stent has been removed. 2. Decreased bulk of the right renal pelvic stone, a portion of the calculus now projecting over the lower pole of the right kidney. A few additional punctate calculi in the bilateral kidneys also noted. 3. Nonspecific bowel gas pattern. Electronically Signed: Abdullahi Mendenhall MD at 19:01 EDT , Service support ,
== END ==
PROVIDERS: PCP Family Medicine; Visit Provider Urology
DX: N20.1 Calculus of ureter (principal)
CPT/HCPCS: 74018

== ENCOUNTER → 2020-03-29 07:09 | Outpatient (CLI) | payer OTHER, SELFPAY ==
--- NOTE | 2020-03-29 07:11 | BI_ITS ---
MAMMOGRAPHY - BILATERAL SCREENING REASON FOR EXAM: Female, 39 years old. Routine annual screening examination. PERTINENT HISTORY: Non-contributory. Remote left excisional breast biopsy. TECHNIQUE: Digital bilateral breast adiel (3D mammographic acquisition) in the CC and MLO projections. 2-D mediolateral oblique (MLO) and craniocaudad (CC) views of both breasts were obtained. CAD: Full Field Digital Mammography with Computer Added Detection was performed. COMPARISON: Comparison is made with prior study dated 11/12/2016. FINDINGS: Breast Composition: The breasts are extremely dense, which lowers the sensitivity of mammography. There are no dominant masses or suspicious calcifications. No other significant abnormalities are identified. There has been no significant change since the prior study. BI/SCREEN MAMM (CAD) W/ADIEL BILAT IMPRESSION: Stable bilateral screening mammogram. Yearly follow-up mammogram recommended. (A) ASSESSMENT CATEGORY: BIRADS Category 1: Negative. A letter regarding these results will be sent to the patient by the facility within 30 days. Approximately 10% of breast cancers are not detected by mammography. A normal mammogram should not delay biopsy of a clinically suspicious abnormality. [id number] Electronically Signed: Ugo Espinoza, at 9:00 EDT , Service support ,
== END ==
PROVIDERS: PCP Family Medicine; Referring Provider Obstetrics & Gynecology; Visit Provider Obstetrics & Gynecology
DX: Z12.31 Encounter for screening mammogram for malignant neoplasm of breast (principal)
CPT/HCPCS: 77063; 77067

== ENCOUNTER → 2020-09-05 12:20 | Outpatient (CLI) | payer OTHER, SELFPAY | PROVIDERS: PCP Family Medicine; Referring Provider Internal Medicine Cardiovascular Disease; Visit Provider Internal Medicine Cardiovascular Disease | DX: R00.2 Palpitations (principal); I47.1 Supraventricular tachycardia | CPT/HCPCS: 93225; 93226 ==

== ENCOUNTER → 2020-09-23 09:31 | Outpatient (CLI) | payer OTHER, SELFPAY ==
--- NOTE | 2020-09-23 09:34 | CT_ITS ---
STUDY: CT ABDOMEN AND PELVIS WITHOUT CONTRAST REASON FOR EXAM: Female, 39 years old. GROSS HEMATURIA/ABD PAIN, RT PELVIC PAIN, HX [place] RADIATION DOSAGE (If Supplied By Facility): CTDIvol = ( 6.83 ) mGy, DLP = ( 313.96 ) mGycm TECHNIQUE: Transaxial images were obtained from the dome of the diaphragm to the symphysis pubis without oral contrast, and without intravenous contrast. Sagittal and coronal images were reconstructed. Individualized dose optimization techniques were used for this CT. COMPARISON: 12/10/2019 FINDINGS: The visualized lung bases are unremarkable. The visualized portions of the heart are within normal limits. Normal liver. Normal gallbladder and extrahepatic biliary system. Normal spleen. Normal pancreas. Normal bilateral adrenal glands. Multiple bilateral nonobstructing renal stones. 4 mm obstructing stone at the right ureteropelvic junction with mild hydronephrosis. Normal visualized stomach. Normal small intestine. Normal colon. There is non-visualization of the appendix. Normal abdominal aorta. Normal inferior vena cava. Normal retroperitoneum. Normal urinary bladder. Normal abdominal wall. Normal osseous structures. CT/Abdomen/Pelvis without Cont IMPRESSION: 4 mm obstructing stone at the right ureteropelvic junction with mild hydronephrosis. Electronically Signed: Cristiano Sims MD at 10:40 EST Tel , Service support ,
== END ==
PROVIDERS: PCP Family Medicine; Referring Provider Nurse Practitioner Adult Health; Visit Provider Nurse Practitioner Adult Health
DX: R10.9 Unspecified abdominal pain (principal); R31.0 Gross hematuria
CPT/HCPCS: 74176

== ENCOUNTER 2020-09-27 05:59 | Day surgery (SDC) | payer OTHER, SELFPAY ==
--- NOTE | 2020-09-27 06:18 | RAD_ITS ---
STUDY: X-RAY - ABDOMEN/PELVIS REASON FOR EXAM: Female, 39 years old. preop TECHNIQUE: Two AP supine views of the abdomen and pelvis. COMPARISON: None. FINDINGS: Normal visualized lung bases. There is an unremarkable bowel gas pattern. There is no demonstrated free abdominal air. The visualized liver, spleen and kidneys are grossly normal in size and morphology. Normal soft tissue structures. Normal visualized osseous structures. RAD/Abdomen Single View IMPRESSION: The previously described stone in the proximal segment right ureter is not identified with certainty. Electronically Signed: Eran Jones MD at 7:48 EST Tel , Service support ,
[2020-09-27 06:40] LABS: Internal QC Validated? YES +Cl - CLEAR BKGD; Pregnancy, Urine Negative Negative
[2020-09-27 06:41] VITALS: BP 123/82; PULSE 71; RESP 16; TEMP 37; O2SAT 100; BMI 22.5
[2020-09-27] MEDS: Lubricating Jelly 60 GM Tube 30 GM TOPICAL (06:54)
[2020-09-27] MEDS: Lactated Ringers 1,000 ML 100 ML IV (06:57)
[2020-09-27] MEDS: Cefazolin 2 GM in 0.9% Normal Saline 100 ML IV (07:17)
--- NOTE | 2020-09-27 07:19 | PCM.HP.STD ---
History of Present Illness Date of Admission: 09/27/20 Chief Complaint: Right obstructing ureteral calculi The patient is a 39 year old female with a history of a proximal right ureteral calculi presents today for treatment with laser lithotripsy. Past Medical History Past Medical History (Chronic Problems): Chronic Problems (Last Reviewed 12/27/19 @ 13:[address] Michoacano Keith MD) Rapid palpitations (Chronic) Paroxysmal supraventricular tachycardia (Chronic) Medical History: Medical History (Last Reviewed 09/27/20 @ 07:[address] Michoacano Keith MD) Paroxysmal supraventricular tachycardia (Chronic) I47.1 Asthma J45.909 History of kidney stones Z87.442 Pituitary adenoma D35.2 Renal calculus, bilateral N20.0 Thrombocytopenia D69.6 Allergies ciprofloxacin [From Cipro] Adverse Reaction (Verified 09/24/20 11:15) PT UNSURE OF REACTION Home Medications: Ambulatory Orders Medication Instructions Recorded norgestimate 0.18 mg/0.215 mg/0.25 1 tab PO QDAY 02/09/18 mg-ethinyl estradiol 25 mcg tablet Ibuprofen 600 mg PO PRN PRN 12/12/19 metoprolol tartrate 25 mg tablet 25 mg PO BID #60 tab 09/11/20 Albuterol IH (ProAir) [Proair Hfa 1 puff INHALATION Q6H PRN PRN 09/24/20 (SP)Vent Pts] Surgical History: Surgical History (Last Reviewed 09/27/20 @ 07:[address] Michoacano Keith MD) H/O lumpectomy Z98.890 History of lithotripsy Z98.890 Status post cryoablation of arrhythmia Onset Date: 04/30/09 Z98.890, Z86.79 slow pathway Surgical History: no surgical history Smoking Status: Never smoker Tobacco Use: Non-smoker Review of Systems Constitutional: Denies: Chills, Fever, Weight Change HEENT: Denies: Head Aches, Sinus Congestion, Sinus Drainage Cardiovascular: Denies: Chest Pain, Palpitations Respiratory: Denies: Cough, Shortness of breath at rest, Sputum production Gastrointestinal: Denies: Abdominal Pain, Nausea, Vomiting Genitourinary: Denies: Dysuria Musculoskeletal: Denies: Joint Pain, Joint Tenderness Skin: Denies: Rash, Wounds Neurological: Denies: Numbness, Tingling, Focal weakness Psychiatric: Denies: Anxiety, Depression, Homicidal Ideations, Suicidal Ideations Hematologic/ Lymphatic: Denies: Easy Bruising, Easy Bleeding VTE Information - Inpt Only VTE Present on Admission: No VTE Mechan Device Prophylaxis: SCD's - Physical Exam Vitals/I&O's: Vital Signs Temp Pulse Resp BP Pulse Ox 98.6 F 71 16 123/82 H 100 09/27/20 06:41 09/27/20 06:41 09/27/20 06:41 09/27/20 06:41 09/27/20 06:41 Oxygen Delivery Method Room Air Weight: 63.3 kg Body Mass Index (BMI) 22.5 General: Alert, Oriented x3, Cooperative HEENT: Atraumatic, PERRLA, EOMI, Normocephalic Neck: Supple, No JVD, Negative Carotid Bruits Lungs: Clear to auscultation, Normal air movement Cardiovascular: Regular rate, No murmurs Abdomen: Bowel Sounds Present, Soft, Non Tender Extremities: No edema, Capillary Refill Less than 3 Seconds Skin: No rashes, No breakdown Musculoskeletal: No Tenderness to Palpation of Joints or Extremities Neurological: Cranial nerves II-XII grossly intact Psych/Mental Status: Normal Affect, Appropriate Microbiology Past 72 Hours 09/26/20 09:40 Interface Orders SARS-CoV-2 Antigen (Rapid) - Final Laboratory Results 09/27/20 06:25: Urine Test Negative Current Medications Cefazolin Sodium 2 gm/ Sodium (Chloride) 110 mls @ 150 mls/hr IV PREOP ONE Stop: 09/27/20 08:03 Lactated Ringer's () 1,000 mls @ 100 mls/hr IV .Q10H DERIK Last Admin: 09/27/20 06:57 Dose: 100 mls/hr Documented by: Assessment/Plan All Active Problems (Last Reviewed 12/27/19 @ 13:[address] Michoacano Keith MD) Hematuria, undiagnosed cause (Resolved) Insect bite (Resolved) Plan to proceed with ureteroscopy laser lithotripsy and stent placement.
--- NOTE | 2020-09-27 07:23 | PCM.DC.URO ---
Discharge Diet: Light diet - advance as tolerated Discharge Activity: Return to Normal Activity Allergies/Adverse Reactions: Allergies ciprofloxacin [From Cipro] Adverse Reaction (Verified 09/24/20 11:15) PT UNSURE OF REACTION Medications to take at Discharge norgestimate 0.18 mg/0.215 mg/0.25 mg-ethinyl estradiol 25 mcg tablet 1 tab PO QDAY 02/09/18 Ibuprofen 600 mg PO PRN PRN 12/12/19 metoprolol tartrate 25 mg tablet 25 mg PO BID #60 tab 09/11/20 Albuterol IH (ProAir) [Proair Hfa (SP)Vent Pts] 1 puff INHALATION Q6H PRN PRN 09/24/20 Cephalexin [Keflex] 500 mg PO Q8 #15 cap 09/27/20 Hydrocodone Bitart/Apap 5-325 [[place] 5MG-325MG] 1 tablet PO Q4H PRN PRN 7 Days #14 tablet 09/27/20 The following prescriptions were given: Cephalexin [Keflex] 500 mg PO Q8 #15 cap Transmission Status: Pending to [facility] Hydrocodone Bitart/Apap 5-325 [[place] 5MG-325MG] 1 tablet PO Q4H PRN PRN 7 Days #14 tablet PRN Reason: Pain Transmission Status: Sent to [facility] Orders to be completed after discharge: Abdomen Single View [RAD] Time Frame: 09/27/20, Facility: [facility], Location: [facility] Primary Care Physician: Rosy Teague MD [Primary Care Provider] - Test Results: Test results from this visit will be discussed in further detail at your follow-up appointment, if applicable. Please Follow Up With: Michoacano Keith MD - [phone] When: please call to make an appointment.
--- NOTE | 2020-09-27 07:56 | PCM.OPRPT ---
Report of Operation Date of Procedure: 09/27/20 Pre-Operative Diagnosis: Right ureteral calculi, in the proximal ureter Post-Operative Diagnosis: Same Surgery/Procedure Performed:: Cystoscopy, balloon dilation of the right ureter, retrograde pyelogram, right ureteroscopy laser lithotripsy of stone fragments, right stent placement. Description of Surgical Findings:: This is a patient who presents to the hospital for treatment for an obstructing distal ureter calculi. I discussed with the patient how the surgery would be performed and we reviewed the risks and benefits of the surgery. The risk and benefits include the risk of failure to remove the stone completely and that the patient may need multiple procedures. We discussed the risk of an infection, the risk of bleeding. We discussed the very rare risk of serious complicated injury to the ureter. The patient understands that if the stone is not able to be removed safely that we may abort the procedure and place a stent. After full discussion and all questions address with the patient the consent form was signed the side was marked appropriately and the patient was taken back to the operating room for the procedure. The patient was taken back to the operating room. After induction of anesthesia by the anesthesiology team the patient was placed in dorsolithotomy position. The genitals were prepped and draped in usual sterile fashion. I went into the bladder with a 21 [place] rigid cystourethroscope through the urethra. Upon entering the bladder I inspected the trigone the left and right ureteral orifice and the bladder itself. I then cannulated the right ureteral orifice and advanced a 0.038 Glidewire up into the kidney. Then over the Glidewire I advanced a 5 Fr Ureteral catheter and performed a retrograde pyelogram with about 10cc of contrast, to delineate the anatomy and identify the stone location. Then a ureteral balloon dilator was advanced over the wire and the distal ureter was balloon dilated with a 12 Fr x 5cm balloon dilator. After 3 minutes of dilating the ureter the balloon was backloaded off the 0.038 glidewire then the safety wire was left in place. I then placed a second 0.038 Guidewire as a working wire and over the working 0.038 guidewire I went in with a Flexible 7.9fr ureteroscope. I was able to go inside with the 7.9Fr flexible utereroscope and I pulled out the working guidewire and then through the 7.9 fr flexible ureteroscope I ascended up the ureter with direct visualization until the stone located, then I engaged the stone with laser lithotripsy using a 270miron laser fiber with energy setting of 6 Hertz and 0.6 J until the stone was lasered into tiny little pieces that should pass on their own. After successful lexa lithotripsy of the stone and stone fragements, a retrograde pyelogram was performed with 10cc of contrast and no extravasation of contrast or perforation was identified in the ureter. I then backed out of the ureter left the wire in place and then over the 0.038 guidewire I placed a double coiled pigtail ureteral stent. The ureteral stent was advanced over the 0.038 guidewire under direct fluoroscopic guidance and direct cystoscopic visual guidance, once the stent was in good position I pulled the wire and the stent coiled in the kidney and bladder in good position. I then drained the patient's bladder and the cystoscope was removed and the patient was taken back to the recovery room in good position. The patient was given discharge instructions to call the office for instructions on when to come to the office to have the stent removed. Type of Anesthesia:: General Drains: stent right side 6 x 26 cm - Admit VTE Documentation VTE Present on Admission: No VTE Mechan Device Prophylaxis: SCD's
[2020-09-27 08:09] VITALS: BP 106/66; BP 123/82; PULSE 88; RESP 16; TEMP 36.7; O2SAT 99
[2020-09-27 08:15] VITALS: BP 118/79; BP 123/82; PULSE 81; RESP 16; O2SAT 100
[2020-09-27] MEDS: Ketorolac 15 MG/ML Vial IV (08:19)
[2020-09-27 08:30] VITALS: BP 117/72; BP 123/82; PULSE 83; RESP 16; O2SAT 100
[2020-09-27 08:40] VITALS: BP 123/82; BP 129/69; PULSE 76; RESP 16; TEMP 36.4; O2SAT 100
[2020-09-27 09:29] VITALS: BP 108/79; BP 123/82; PULSE 49; RESP 18; TEMP 36.4; O2SAT 100
== END 2020-09-27 09:38 | disposition home or self-care (01) ==
LOC: SDC 06:00 → AC 06:01
PROVIDERS: Anesthesiology; PCP Family Medicine; Referring Provider Urology; Visit Provider Urology
PROC: 0TJ98ZZ Inspection of Ureter, Via Natural or Artificial Opening Endoscopic (ICD-10-PCS; CPT 52352; principal; 2020-09-27 07:20)
DX: N20.1 Calculus of ureter (principal); I47.1 Supraventricular tachycardia; Z20.828 Contact with and (suspected) exposure to other viral communicable diseases; I10 Essential (primary) hypertension; Z79.899 Other long term (current) drug therapy; J45.20 Mild intermittent asthma, uncomplicated
CPT/HCPCS: 52356; 74018; 76000; 81025; 87426; C9803; J7120; C1769; J2405

== ENCOUNTER → 2021-04-03 13:33 | Outpatient (CLI) | payer OTHER, SELFPAY ==
[2021-04-09 18:09] LABS: HPV Reflexed? NOT INDICATED
== END ==
PROVIDERS: PCP Family Medicine; Visit Provider Obstetrics & Gynecology
DX: Z12.4 Encounter for screening for malignant neoplasm of cervix (principal)
CPT/HCPCS: 88175; G0145

== ENCOUNTER → 2021-07-08 13:35 | Outpatient (CLI) | payer OTHER, SELFPAY ==
--- NOTE | 2021-07-08 13:38 | BI_ITS ---
MAMMOGRAPHY - BILATERAL SCREENING REASON FOR EXAM: Female, 40 years old. Routine annual screening examination. PERTINENT HISTORY: Non-contributory. Remote left excisional breast biopsy. TECHNIQUE: Digital bilateral breast adiel (3D mammographic acquisition) in the CC and MLO projections. 2-D mediolateral oblique (MLO) and craniocaudad (CC) views of both breasts were obtained. CAD: Full Field Digital Mammography with Computer Added Detection was performed. COMPARISON: Comparison is made with prior study dated 03/29/2020 and 11/12/2016. FINDINGS: Breast Composition: The breasts are extremely dense, which lowers the sensitivity of mammography. There are no dominant masses or suspicious calcifications. No other significant abnormalities are identified. There has been no significant change since the prior study. BI/SCRN MAMM (CAD)W/ADIEL BILAT IMPRESSION: Stable bilateral screening mammogram. Yearly follow-up mammogram recommended. (A) ASSESSMENT CATEGORY: BIRADS Category 1: Negative. A letter regarding these results will be sent to the patient by the facility within 30 days. Approximately 10% of breast cancers are not detected by mammography. A normal mammogram should not delay biopsy of a clinically suspicious abnormality. [id number] Electronically Signed: Ugo Espinoza MD at 8:24 EST , Service support ,
== END ==
PROVIDERS: PCP Family Medicine; Referring Provider Obstetrics & Gynecology; Visit Provider Obstetrics & Gynecology
DX: Z12.31 Encounter for screening mammogram for malignant neoplasm of breast (principal)
CPT/HCPCS: 77063; 77067

== ENCOUNTER 2021-10-26 11:54 | Outpatient (CLI) | payer OTHER, SELFPAY ==
--- NOTE | 2021-10-26 12:02 | RAD_ITS ---
STUDY: X-RAY - RIGHT ANKLE REASON FOR EXAM: Female, 40 years old. Right ankle pain and swelling TECHNIQUE: 3 view(s) of the ankle. COMPARISON: None. FINDINGS: Normal visualized distal tibia and fibula. Normal medial and lateral malleoli. Normal tibiotalar articulation and ankle mortise. Normal visualized talus and calcaneus. The visualized subtalar, talonavicular, calcaneocuboid and tarsal articulations are normal. The soft tissue structures are unremarkable. RAD/Ankle min 3 Views IMPRESSION: Normal x-ray examination of the ankle. Electronically Signed: Cynthia Nguyen MD at 13:29 EDT ,
== END 2021-10-26 23:59 | disposition home or self-care (01) ==
LOC: RAD 11:58
PROVIDERS: PCP Family Medicine; Referring Provider Nurse Practitioner Family; Visit Provider Nurse Practitioner Family
DX: M25.571 Pain in right ankle and joints of right foot (principal)
CPT/HCPCS: 73610

== ENCOUNTER → 2022-01-28 | Outpatient (CLI) | payer OTHER, SELFPAY ==
--- NOTE | 2022-01-28 10:36 | RAD_ITS ---
EXAM: XR ABDOMEN, 1 VIEW CLINICAL INDICATION: CALCULUS OF URETER TECHNIQUE: Frontal supine view of the abdomen/pelvis. This report was created using cookdinner report generation technology. COMPARISON: 09/27/2020 FINDINGS: LOWER THORAX: No acute pathology. GASTROINTESTINAL TRACT: Unremarkable. Non-obstructive. No bowel or stomach distention. ORGANS: Calculi visualized overlying the right kidney. Calculi visualized overlying the left kidney. No organomegaly. BONES/JOINTS: No acute pathology. SOFT TISSUES: No acute pathology. RAD/Abdomen Single View IMPRESSION: Calculi visualized overlying the right kidney. Calculi visualized overlying the left kidney. Electronically Signed: Latrell Isaac MD at 15:27 EDT ,
== END | disposition home or self-care (01) ==
PROVIDERS: PCP Family Medicine; Referring Provider Urology; Visit Provider Urology
DX: N20.1 Calculus of ureter (principal)
CPT/HCPCS: 74018

== ENCOUNTER 2022-02-05 00:27 | Emergency (ER) | payer OTHER, SELFPAY ==
[2022-02-05 00:28] VITALS: BP 143/102; PULSE 87; RESP 16; TEMP 36.7; O2SAT 98; BMI 22.7
--- NOTE | 2022-02-05 00:42 | EDS_ITS ---
HPI HPI - GI History of Present Illness Chief Complaint: Abd Pain Informant: patient Abdominal Pain/Flank Pain Onset: Weeks Context: Gradual Onset Timing: Intermittent and Waxes and wanes Quality: Aching Location: LLQ Current Severity: Mild Maximum Severity: Moderate Worsened by: Nothing Relieved by: Nothing Nausea/Vomiting/Emesis GI Symptom: Negative for Nausea or Vomiting Diarrhea/Melena/Hematochezia GI Symptom: Positive for Diarrhea; Negative for Melena or Hematochezia (Small piece of red today, unknown if it was blood or watermelon) Onset: Weeks Stool Quality: Positive for Loose Severity: Mild Associated Symptoms Associated Symptoms: Negative for Dysuria, Frequency, Hematuria or Urgency Narrative Narrative: Patient states she has had both loose stools and intermittent left lower quadrant pain for the last couple weeks. They do not necessarily coincide with the other. She cannot tell if this is kidney stone pain, but she does not think so, she thinks it is more likely bowel pain. Her son and her all had loose stools as she has, she was suspicious that it was from some contaminated hamburger. She is not having any watery stools and she has only 1-3 bouts per day when she has them. Today she saw a piece of red in her stool and was unknown if it was blood or piece of watermelon that she had eaten, but she has had no significant amount of blood even if this was. [facility] Medical History Asthma AVNRT (AV linus re-entry tachycardia) COVID (10/2021) History of kidney stones Paroxysmal supraventricular tachycardia Pituitary adenoma Renal calculus, bilateral Thrombocytopenia Home Medications albuterol sulfate 90 mcg/actuation aerosol inhaler 1 puff inhalation Q6H PRN PRN Sob &/Or Wheezing 09/24/20 [History Last Taken Unknown] metoprolol tartrate 25 mg tablet 25 mg PO BID 01/08/22 [History Last Taken Unknown] norgestimate 0.25 mg-ethinyl estradiol 35 mcg tablet 1 tab PO DAILY 01/08/22 [History Last Taken Unknown] sulfamethoxazole 800 mg-trimethoprim 160 mg tablet 1 tab PO BID #20 TABLETS 02/05/22 [Rx Last Taken Unknown] tamsulosin 0.4 mg capsule (Flomax) 0.4 mg PO DAILY #7 caps 02/05/22 [Rx Last Taken Unknown] Allergy/AdvReac Type Severity Reaction Status Date / Time ciprofloxacin [From Cipro] AdvReac PT UNSURE Verified 02/05/22 00:28 OF REACTION Family History Other Adopted Surgical History H/O lumpectomy History of lithotripsy History of radiofrequency ablation procedure for cardiac arrhythmia (04/30/09) Social History Smoking Status: Never smoker alcohol intake: never ROS ROS ED Constitutional Constitutional ED: Denies chills or fever(s) Eyes Eyes: Denies change in vision or diplopia ENT ENT ED: Denies rhinorrhea or sore throat Cardiovascular Cardiovascular: Denies chest pain or palpitations Respiratory/Chest Respiratory/Chest: Denies cough or dyspnea Gastrointestinal Gastrointestinal: Reports as per HPI, abdominal pain and diarrhea; Denies nausea or vomiting Genitourinary Genitourinary ED: Denies dysuria or hematuria Musculoskeletal Musculoskeletal: Denies back pain or neck pain Integumentary Denies abscess or rash Neurologic Neurologic: Denies headache(s), paresthesias or weakness Psychiatric Psychiatric: Denies anxiety or suicidal thoughts EXAM Physical Exam Const Vital Signs: 02/05/22 00:28 Temperature 98.1 F Temperature Source Temporal Pulse Rate 87 Respiratory Rate 16 Blood Pressure 143/102 H Blood Pressure Mean 115 Pulse Ox 98 Oxygen Delivery Method Room Air Positive well nourished and well developed General Appearance ED: well developed and NAD HEENT Reports moist mucous membranes normocephalic and atraumatic Eyes PERRL and EOMs intact bilaterally Neck full ROM and supple Resp normal respiratory effort and clear to auscultation bilaterally Cardio regular rate, regular rhythm and no murmurs GI non-distended GI Narrative: Very mild tenderness left lower quadrant, no guarding or rebound tenderness, no other areas of tenderness. Auscultation: normoactive bowel sounds Palpation: soft Back/Spine no CVA tenderness General Back: other FROM Extremity normal to inspection General Extremety ED: Negative for edema, pulses abnormal or tenderness General Extremity: Negative for edema or pulses abnormal Neuro oriented x3, CN's II-XII intact bilaterally, no sensory deficits noted and gait normal Sensorium / Orientation: awake and alert Motor Exam: strength 5/5 throughout Skin no rashes or lesions noted and no wounds MDM MDM MDM Narrative Medical decision making narrative: Patient says she was not in a lot of pain so declined analgesics here, she remained comfortable and stable hemodynamically/clinically. Her work-up is consistent with a 4 mm left UVJ to obstructive stone with associated ureteral hydronephrosis. She does not have any abnormal bowel findings on CT. Therefore I think the stone is causing her symptoms. I discussed the nephrolithiasis bilaterally as well, which showed up on the x-ray she had several weeks ago. Her urine appears to be infected. She does not have symptoms of this nor she septic. I sent that for culture, gave her a dose of Rocephin here, I would have started her on Cipro but she has a history of a reaction to it so we chose Bactrim instead. Her urologist is not on-call tonight, advised to touch base with him in the morning for further instructions. I will start her on Flomax as well, since it is possible that she has had this stone for several weeks even though it is only 4 mm, to see if that helps her pass it sooner. Lab Data Attestation: I reviewed the patient's lab results. Labs: Laboratory Results - last 24 hr 02/05/22 02/05/22 02/05/22 01:00 01:00 01:03 WBC 11.5 H RBC 4.63 Hgb 14.3 Hct 42.1 MCV 90.9 MCH 30.9 MCHC 34.0 RDW Std Deviation 40.5 RDW Coeff of Jerrell 12.2 Plt Count 187 MPV 11.0 Immature Gran % (Auto) 0.300 Neut % (Auto) 73.7 H Lymph % (Auto) 19.5 [place] % (Auto) 5.5 Eos % (Auto) 0.8 Baso % (Auto) 0.2 Absolute Neuts (auto) 8.5 H Absolute Lymphs (auto) 2.24 Nucleated RBC % 0 Sodium 140 Potassium 3.2 L Chloride 106 Carbon Dioxide 27.0 Anion Gap 7 BUN 12 Creatinine 0.91 Estim Creat Clear Calc 75.39 Est GFR (MDRD) Af Amer 87 Est GFR (MDRD) Non-Af 72 BUN/Creatinine Ratio 13.2 Glucose 110 H Calcium 9.2 Urine Color Yellow Urine Clarity Sl Cloudy Urine pH 6.0 Ur Specific [place] 1.025 Urine Protein 100 H Urine Glucose (UA) Normal Urine Ketones 15 H Urine Occult Blood 250 H Urine Nitrite Negative Urine Bilirubin 1 H Urine Urobilinogen 8 H Ur Leukocyte Esterase 500 H Urine RBC 10-25 SEEN Urine WBC 25-50 SEEN Ur Squamous Epith Cells 0-5 SEEN Urine Bacteria 1+ Hyaline Casts 0-5 SEEN Urine Mucus 2+ Radiography Diagnostic Testing: Clinical Impression(s) from Imaging Studies Abdomen/Pelvis CT 02/05/22 00:42 IMPRESSION: 1. Moderate left hydroureteronephrosis due to a 4 mm stone in the distal left ureter just above the left ureterovesical junction. 2. Multiple small nonobstructing calculi bilateral kidneys. Electronically Signed: Balbir العراقي MD at 1:40 EDT Reading Location ID and State: [address] [place] [address] Tel , Service support , Discharge Plan Triage Chief Complaint: Abd Pain ED Provider: Abelardo Mendoza Dx/Rx/DC Orders Clinical Impression: Ureterolithiasis, Ureteral colic, Complicated urinary tract infection Instructions: Understanding Urinary Tract ..., ED Kidney Stone w/ Colic Prescriptions: New tamsulosin [Flomax] 0.4 mg capsule 0.4 mg PO DAILY Qty: 7 0RF sulfamethoxazole-trimethoprim [sulfamethoxazole-trimethoprim] 1 TABLET tablet 1 tab PO BID Qty: 20 0RF No Action metoprolol tartrate 25 mg tablet 25 mg PO BID norgestimate-ethinyl estradiol 0.25-35 mg-mcg tablet 1 tab PO DAILY Label Comments: TAKE 1 TABLET BY MOUTH ONCE DAILY, SKIP INACTIVE TABLETS albuterol sulfate 1 PUFF inhaler 1 puff INHALATION Q6H PRN PRN (Reason: Sob &/Or Wheezing) Primary Care Provider: Rosy Teague Referrals: Rosy Teague MD [Primary Care Provider] - Michoacano Keith MD [STAFF PHYSICIAN] - As soon as possible Disposition Disposition: Home, Self Care
--- NOTE | 2022-02-05 00:42 | CT_ITS ---
EXAM: CT ABDOMEN AND PELVIS WITHOUT INTRAVENOUS CONTRAST CLINICAL INDICATION: LLQ pain TECHNIQUE: Helically acquired images were obtained of the abdomen and pelvis without intravenous contrast. This CT exam was performed using one or more of the following dose reduction techniques: automated exposure control, adjustment of the mA and/or kV according to patient size, and/or use of iterative reconstruction technique. This report was created using [employer] report generation technology. RADIATION DOSE: CTDIvol = 7.21 mGy, DLP = 347.59 mGy-cm. COMPARISON: 09/23/2020. FINDINGS: LOWER THORAX: Unremarkable. Lung bases are clear. No cardiomegaly. No significant pericardial effusion. ABDOMEN: LIVER: Unremarkable. Homogeneous. GALLBLADDER AND BILE DUCTS: Unremarkable. No calcified gallstones. No gallbladder distention or wall edema. No intra- or extrahepatic biliary ductal dilation. PANCREAS: Unremarkable. No focal cystic mass. SPLEEN: Unremarkable. Normal size without focal cystic or solid mass. ADRENALS: Unremarkable. No nodules. KIDNEYS AND URETERS: Moderate left hydroureteronephrosis due to a 4 mm stone in the distal left ureter just above the left ureterovesical junction. Multiple small nonobstructing calculi bilateral kidneys. Normal renal size and position. STOMACH AND BOWEL: Unremarkable. No stomach or bowel distention. No focal inflammatory change. PELVIS: APPENDIX: Normal appendix. BLADDER: Unremarkable. REPRODUCTIVE: Unremarkable as visualized. No mass. ABDOMEN and PELVIS: INTRAPERITONEAL SPACE: Unremarkable. No ascites or other fluid collection. No free air. BONES/JOINTS: Unremarkable. No suspicious lytic or blastic abnormality. SOFT TISSUES: Unremarkable. No discrete abdominal or pelvic wall hernia. VASCULATURE: Unremarkable. Abdominal aorta is non-dilated. LYMPH NODES: Unremarkable. No enlarged lymph nodes. CT/Abdomen/Pelvis without Cont IMPRESSION: 1. Moderate left hydroureteronephrosis due to a 4 mm stone in the distal left ureter just above the left ureterovesical junction. 2. Multiple small nonobstructing calculi bilateral kidneys. Electronically Signed: Balbir العراقي MD at 1:40 EDT ,
[2022-02-05 01:07] LABS: Glucose, Dipstick Normal (Normal); Ketone-Dipstick 15 mg/dl (Negative); Leukocyte Esterase-Dipstick 500 /ul (Negative); Nitrite-Dipstick Negative (Negative); Occult Blood-Urine 250 /ul (Negative); Protein-Dipstick 100 mg/dl (Negative); Specific Gravity, Urine 1.025 (1.002-1.030); Urine Urobilinogen 8 mg/dl (Normal)
[2022-02-05 01:13] LABS: Absolute Lymphocyte Count 2.24 X10^3/uL (0.83-4.51); Absolute Neutrophil Count 8.5 X10^3/uL (2.0-7.7); Basophil# 0.02 X10^3/uL; Basophil% 0.2 % (0-1); Eosinophil# 0.09 X10^3/uL; Eosinophils% 0.8 % (0-5); Hematocrit 42.1 % (37-47); Hemoglobin 14.3 g/dL (12.0-15.0); Lymphocyte # 2.24 X10^3/ul (0.83-4.51); Lymphocyte % 19.5 % (19-41); Mean Corpuscular Hgb 30.9 pg (27.0-32.0); Mean Corpuscular Volume 90.9 fL (81-99); Monocyte# 0.63 X10^3/uL; Monocyte% 5.5 % (0-10); NRBC Flagged by Analyzer 0 % (0-5); Neutrophil # 8.49 X10^3/uL (2.7-7.7); Neutrophil % 73.7 % (47-70); Platelet Count 187 K/mm3 (150-450); RBC Distribution Width CV 12.2 % (11.6-14.6); RBC Distribution Width SD 40.5 fl (35.1-43.9); Red Blood Count 4.63 M/mm3 (4.2-5.4); White Blood Count 11.5 K/mm3 (4.4-11.0)
[2022-02-05 01:14] LABS: Urine Bilirubin Dipstick 1 mg/dL (Negative)
[2022-02-05 01:15] LABS: Color, Urine Yellow (Yellow); Urine Clarity Sl Cloudy (Clear)
[2022-02-05 01:16] LABS: White Blood Cells 25-50 SEEN /hpf (0-5)
[2022-02-05 01:17] LABS: Bacteria 1+ /hpf (None Seen); Hyaline Cast 0-5 SEEN /lpf (0-5); Mucous, Urine 2+ /hpf (<or=2+); Red Blood Cells-Urine 10-25 SEEN /hpf (0-5); Squamous Epithelial Cells - UA 0-5 SEEN /hpf (5-10)
[2022-02-05 01:27] LABS: Anion Gap 7 (5-15); BUN 12 mg/dL (7-18); BUN/Creat Ratio 13.2 RATIO (10-20); Calcium,Total 9.2 mg/dL (8.5-10.1); Chloride 106 mmol/L (98-107); Creatinine, Serum 0.91 mg/dL (0.55-1.02); EST Glomerular Filtration Rate 72 mL/min (>60); Est Glom Filt Rate - Afr Amer 87 mL/min (>60); Estimated Creatinine Clearance 75.39 ml/min; Glucose 110 mg/dL (74-106); Potassium 3.2 mmol/L (3.5-5.1); Sodium Level 140 mmol/L (136-145)
[2022-02-05] MEDS: Smz/Tmp Ds Tablet 1 TABLET PO (02:41)
[2022-02-05] MEDS: Ceftriaxone 1 GM/50 ML BAG IV (02:41)
[2022-02-05 03:25] VITALS: BP 123/87; PULSE 77; RESP 16; O2SAT 99
== END 2022-02-05 03:26 | disposition home or self-care (01) ==
PROVIDERS: Emergency Provider Emergency Medicine; PCP Family Medicine; Visit Provider Emergency Medicine
DX: N20.1 Calculus of ureter (principal); N39.0 Urinary tract infection, site not specified; Z79.899 Other long term (current) drug therapy; Z86.16 Personal history of COVID-19; J45.909 Unspecified asthma, uncomplicated
CPT/HCPCS: 74176; 80048; 81001; 85025; 87086; 96365; 99284; J7050; A4216

== ENCOUNTER → 2022-03-02 | Outpatient (CLI) | payer OTHER, SELFPAY ==
--- NOTE | 2022-03-02 10:51 | ECHOD_ITS ---
Reason For Study: ARRHYTHMIA Procedure This was a 2D Doppler, Color Flow transthoracic echocardiogram. The study was technically difficult. Exam performed in department. Left Ventricle Normal LV size. Left ventricular systolic function is normal. No regional wall motion abnormalities noted. Right Ventricle Normal RV size. Normal systolic function. Atria The left atrium is mildly enlarged. Normal right atrium. Mitral Valve Mitral valve not well visualized. Tricuspid Valve The tricuspid valve is not well visualized. Aortic Valve The aortic valve is not well visualized. Pulmonic Valve The pulmonic valve is not well visualized. Great Vessels Normal aortic root. The pulmonary artery is normal size. Normal inferior vena cava. Pericardium/Pleural No pericardial effusion. MMode/2D Measurements & Calculations LVIDd: 4.9 cm IVSd: 0.70 cm Ao root diam: 3.2 cm LVIDs: 3.3 cm LVPWd: 0.77 cm FS: 32.4 % LAV(MOD-bp): 69.9 ml LA A4 area: 21.3 cm2 LA dimension(2D): 2.7 cm LAV(MOD-bp) Indexed: 40.9 ml/m2 LAV(MOD-sp2): 50.3 ml LAV(MOD-sp4): 81.6 ml RA A4 area: 15.6 cm2 Time Measurements MV dec time: 0.24 sec Doppler Measurements & Calculations MV E max rno: 86.0 cm/sec Lat Peak E' Ron: 15.0 cm/sec Med Peak E' Ron: 16.8 cm/sec MV A max ron: 39.0 cm/sec E/E' lat: 5.7 E/E' med: 5.1 MV E/A: 2.2 MV dec slope: 352.7 cm/sec2 Ao V2 max: 102.6 cm/sec LV V1 max: 84.2 cm/sec Ao max P.2 mmHg LV V1 max P.9 mmHg PA V2 max: 89.1 cm/sec ECHO/Echo Complete Interpretation Summary Normal LV size. Left ventricular systolic function is normal. The study was technically limited. The study was technically difficult. Ordering Physician: Bartolo Rodríguez Referring Physician: Rosy Teague Performed By: Berta Hassan, HOLLI, RVT
== END | disposition home or self-care (01) ==
PROVIDERS: PCP Family Medicine; Referring Provider Internal Medicine Cardiovascular Disease; Visit Provider Internal Medicine Cardiovascular Disease
DX: I47.1 Supraventricular tachycardia (principal); R00.2 Palpitations
CPT/HCPCS: 93306

== ENCOUNTER → 2022-03-03 | Outpatient (CLI) | payer OTHER, SELFPAY ==
[2022-04-22 12:21] LABS: Source Not Provided
== END | disposition home or self-care (01) ==
PROVIDERS: PCP Family Medicine; Visit Provider Urology
DX: N20.0 Calculus of kidney (principal)
CPT/HCPCS: 82360

== ENCOUNTER 2022-05-22 09:23 | Day surgery (SDC) | payer OTHER, SELFPAY ==
[2022-05-22] MEDS: Lactated Ringers 1,000 ML 15 ML IV (09:40)
[2022-05-22 09:54] VITALS: BP 115/96; PULSE 78; RESP 18; TEMP 36.4; O2SAT 100; BMI 22.0
--- NOTE | 2022-05-22 09:57 | HP.PCM_ITS ---
History and Physical Date of Admission: 05/22/22 Intake Vital Signs ? 02/05/2200:28 04/15/2214:03 Height 5 ft 6 in 5 ft 6 in Weight: 140 lb 14.006 oz 143 lb BMI 22.7 23.1 BP 143/102 H 122/82 H Blood Pressure Location ? Rt brachial Position ? Sitting Respiration 16 16 Pulse 87 74 Pulse Source ? Monitor Temp 98.1 F 98.0 F Temp Source Temporal Temporal Pulse Oximetry (%) 98 98 Oxygen Delivery Method ? room air Intake Visit Reasons:?COLONOSCOPY FOR BLEEDING Chief Complaint: Consult for colonoscopy Household Refrigeration Mechanic Required: No Is patient in pain?: No Allergies ciprofloxacin [From Cipro] Adverse Reaction (Verified 04/15/22 14:04) PT UNSURE OF REACTION Medications albuterol sulfate 90 mcg/actuation aerosol inhaler 1 puff inhalation Q6H PRN PRN Sob &/Or Wheezing 09/24/20 [History Confirmed 04/15/22] metoprolol tartrate 25 mg tablet 25 mg PO BID 01/08/22 [History Confirmed 04/15/22] norgestimate 0.25 mg-ethinyl estradiol 35 mcg tablet 1 tab PO DAILY 01/08/22 [History Confirmed 04/15/22] sulfamethoxazole 800 mg-trimethoprim 160 mg tablet 1 tab PO BID #20 TABLETS 02/05/22 [Rx Confirmed 04/15/22] tamsulosin 0.4 mg capsule (Flomax) 0.4 mg PO DAILY #7 caps 02/05/22 [Rx Confirmed 04/15/22] PFSH Medical History? Asthma AVNRT (AV linus re-entry tachycardia) COVID (10/2021) History of kidney stones Paroxysmal supraventricular tachycardia Pituitary adenoma Renal calculus, bilateral Thrombocytopenia Surgical History? H/O lumpectomy History of lithotripsy History of radiofrequency ablation procedure for cardiac arrhythmia (04/30/09) Family History? Other Adopted Social History? Smoking Status:? Never smoker alcohol intake:? never HPI HPI HPI: 41-year-old female is here with bright red blood per rectum.? She has had 2 episodes of bright red blood when wiping.? These occurred approximately 2 weeks and 4 weeks ago.? She has not had any abdominal pain.? She describes the blood is bright red.? She did not have any pain during defecation but she does have known hemorrhoids.? She has never had a colonoscopy and denies any family history of colon cancer. ROS General General: No weight change, appetite, fatigue, colon cancer, breast cancer or weakness HEENT HEENT: No difficulty swallowing, eye injury, eye surgery, swollen glands or hoarseness Endo Endocrine: No thyroid disease, diabetes mellitus, thyroid cancer, Hair loss, heat intolerance or cold intolerance Skin Skin: No rash or changing moles Breast Breast: No left breast lump, right breast lump, nipple discharge, breast pain, abnormal mammogram, abnormal US or breast enlargement Musc Musculoskeletal: Yes back problems; No arthritis, rheumatoid arthritis, gout or joint pain Additional Details: Degenerative disk disease Cardio Cardiovascular: No murmur, pacemaker, heart disease, atrial fibrillation, high blood pressure, heart attack, heart stent, palpitations, shortness of breat with exertion or chest pain Psych Psychiatric: Yes anxiety; No depression or hearing voices Resp Respiratory: No shortness of breath, No sleep apnea, No cough, No COPD, Yes asthma, No emphysema and No wheezing Gastro Gastrointestinal: No abdominal pain, No nausea or vomiting, No diarrhea, No constipation, Yes blood in stool, No acid reflux, Yes hemorrhoids, No ulcers, No gallbladder problem and No black,tarry stools Srikanth Hematologic: No blood thinners, Yes blood disorders, No bleeding, No anemia and No blood clots Additional Details: MTHFR Neuro Neurologic: No system reviewed and no additional complaints, except as documented, No as per HPI, No abnormal gait, No abnormal hearing, No abnormal movements, No abnormal speech, No behavioral changes, No burning sensations, No confusion, No convulsions, No disequilibrium, No dizziness, No localized weakness, No frequent falls, No headache(s), No lack of coordination, No loss of vision, No memory loss, No numbness, No other visual disturbances, No radicular pain, No restless legs, No sensory deficit, No syncope, No tingling, No tremor(s), No weakness and No other Exam Const General: cooperative Orientation: alert and oriented x3 HENMT Head: normal to inspection Neck Neck: normal visual inspection and full ROM Chest Chest palpation & inspection: normal inspection of the chest Resp Effort & Inspection: normal respiratory effort Auscultation: clear to auscultation bilaterally Cardio Rate: regular rate Rhythm: regular rhythm GI Inspection: non-distended Palpation: soft and nontender Skin General: no rashes or lesions noted Neuro General: patient alert and patient oriented x3 Extrem General: full ROM Psych Appearance: grossly normal Mental Status: mental status grossly normal Assessment and Plan Assessment and Plan (1) Blood in stool: ?Status:?Acute ?Plan: Patient has had some bright red blood per rectum and I recommended a colonoscopy to ensure there is nothing in the colon of concern.? Patient does have a history of hemorrhoids and this is likely the culprit. I explained endoscopy in detail to the patient.? I explained the risks including but not limited to stroke or heart attack with anesthesia, perforation of the GI tract, bleeding, infection.? I explained that any of these could necessitate further emergency surgery.? The patient understands and all questions were answered sufficiently.? The patient wishes to proceed with procedure. Arun Kent MD Pager: [facility] [address] [place] [address], [address] [place] [address] Office: I have re-examined the patient. There are no clinical changes since date of exam.
[2022-05-22 10:04] LABS: Internal QC Validated? YES +Cl - CLEAR BKGD; Pregnancy, Urine Negative Negative
--- NOTE | 2022-05-22 10:58 | OP.COLON_ITS ---
Patient Name: Marion Torres Procedure Date: 05/22/2022 9:54 AM Date of : 1980 Age: 41 Procedure: Colonoscopy Indications: Rectal bleeding Providers: Arun Kent MD Medicines: Monitored Anesthesia Care Patient Profile: This is a 41 year old female. Refer to note in patient chart for documentation of history and physical. Last Colonoscopy: none. The patient's first colonoscopy is today. Complications: No immediate complications. Procedure: Pre-Anesthesia Assessment: - Prior to the procedure, a History and Physical was performed, and patient medications and allergies were reviewed. The patient's tolerance of previous anesthesia was also reviewed. The risks and benefits of the procedure and the sedation options and risks were discussed with the patient. All questions were answered, and informed consent was obtained. Prior Anticoagulants: The patient has taken no previous anticoagulant or antiplatelet agents. After reviewing the risks and benefits, the patient was deemed in satisfactory condition to undergo the procedure. After I obtained informed consent, the scope was passed under direct vision. Throughout the procedure, the patient's blood pressure, pulse, and oxygen saturations were monitored continuously. The colonoscope was introduced through the anus and advanced to the cecum, identified by appendiceal orifice and ileocecal valve. The colonoscopy was performed without difficulty. The patient tolerated the procedure well. The quality of the bowel preparation was good. Scope In: 10:43:22 AM Scope Withdrawal Time 0 hours 6 minutes 10 seconds Scope Out: 10:55:55 AM Total Procedure Duration Time 0 hours 12 minutes 33 seconds Findings: The entire examined colon appeared normal on direct and retroflexion views. Impression: - The entire examined colon is normal on direct and retroflexion views. - No specimens collected. Recommendation: - Discharge patient to home. - Resume previous diet. - Continue present medications. - Repeat colonoscopy in 10 years for screening purposes. Procedure Code(s): --- Professional --- 05214, Colonoscopy, flexible; diagnostic, including collection of specimen(s) by brushing or washing, when performed (separate procedure) Diagnosis Code(s): --- Professional --- K62.5, Hemorrhage of anus and rectum CPT copyright 2017 [employer]. All rights reserved. The codes documented in this report are preliminary and upon finisher hot strip review may be revised to meet current compliance requirements. Arun Kent MD 05/22/2022 10:58:20 AM This report has been signed electronically. Number of Addenda: 0 Note Initiated On: 05/22/2022 9:54 AM
[2022-05-22 10:59] VITALS: BP 102/76; BP 115/96; PULSE 71; RESP 14; TEMP 36.6; O2SAT 100
--- NOTE | 2022-05-22 10:59 | OP.CCLET_ITS ---
05/22/2022 Rosy Teague [place] [id number] [place] [address] Re : Colonoscopy procedure for Marion Torres Dear Dr. Teague This procedure was performed on Sunday, May 22, 2022. My impressions and recommendations are as follows: Impressions : - The entire examined colon is normal on direct and retroflexion views. - No specimens collected. Recommendations : - Discharge patient to home. - Resume previous diet. - Continue present medications. - Repeat colonoscopy in 10 years for screening purposes. My findings are described in the full procedure note, which is enclosed. If I can be of further assistance, please feel free to contact me at Doctor phone number(s): , Work: . Sincerely, Arun Kent MD 05/22/2022 10:58:20 AM This report has been signed electronically.
[2022-05-22 11:05] VITALS: BP 101/70; BP 115/96; PULSE 71; RESP 14; O2SAT 100
[2022-05-22 11:10] VITALS: BP 115/96; BP 97/63; PULSE 64; RESP 16; O2SAT 100
[2022-05-22 11:15] VITALS: BP 115/96; BP 88/62; PULSE 65; RESP 16; TEMP 36.8; O2SAT 100
[2022-05-22 11:27] VITALS: BP 115/96
== END 2022-05-22 11:38 | disposition home or self-care (01) ==
LOC: EN 09:25 → AC 09:26
PROVIDERS: Anesthesiology; PCP Family Medicine; Referring Provider Family Medicine; Visit Provider Surgery
PROC: 0DJD8ZZ Inspection of Lower Intestinal Tract, Via Natural or Artificial Opening Endoscopic (ICD-10-PCS; CPT 45378; principal; 2022-05-22 10:25)
DX: K62.5 Hemorrhage of anus and rectum (principal); J45.909 Unspecified asthma, uncomplicated; Z86.16 Personal history of COVID-19; Z79.899 Other long term (current) drug therapy; Z87.442 Personal history of urinary calculi
CPT/HCPCS: 45378; 81025; J7120; J2405

== ENCOUNTER → 2022-09-10 | Outpatient (CLI) | payer OTHER, SELFPAY ==
--- NOTE | 2022-09-10 13:00 | US_ITS ---
STUDY: ULTRASOUND OF THE FEMALE PELVIS - COMPLETE REASON FOR EXAM: Female, 41 years old. RLQ PAIN LMP: 08/30/2022. TECHNIQUE: Transvaginal TECHNICAL QUALITY: Adequate. COMPARISON: None. FINDINGS: The uterus is retroverted and is in a midline position. The uterus measures 7.3 cm x 5 cm x 3.9 cm. Normal uterine cervix. The endometrium measures 2.6 mm in thickness, and is hyperechoic. There is no demonstrated endometrial mass. There is no demonstrated myometrial mass. I.U.D. - The patient does not have an I.U.D. The right ovary is visualized. The right ovary measures 2.3 cm x 1.7 cm x 1 cm. A dominant follicle is seen measuring 1 cm x 0.9 cm x 0.6 cm. There is no visualized right adnexal mass or complex lesion. There is normal arterial and normal venous vascularity. The left ovary is visualized. The left ovary measures 2.1 cm x 2.4 cm x 1.9 cm. There is no left ovarian cyst or ovarian mass. There is no visualized left adnexal mass or complex lesion. There is normal arterial and normal venous vascularity. There is no fluid in the cul-de-sac. US/Transvaginal Non- IMPRESSION: Normal female pelvis.. Dominant follicle is seen in the right ovary. Electronically Signed: Ugo Espinoza MD at 14:46 EST ,
== END | disposition home or self-care (01) ==
PROVIDERS: PCP Family Medicine; Referring Provider Family Medicine; Visit Provider Family Medicine
DX: R10.31 Right lower quadrant pain (principal)
CPT/HCPCS: 76830

== ENCOUNTER → 2022-09-21 | Outpatient (CLI) | payer OTHER, SELFPAY ==
--- NOTE | 2022-09-21 12:58 | BI_ITS ---
MAMMOGRAPHY - BILATERAL SCREENING REASON FOR EXAM: Female, 41 years old. Routine annual screening examination. PERTINENT HISTORY: Non-contributory. TECHNIQUE: Digital bilateral breast adiel (3D mammographic acquisition) in the CC and MLO projections. 2-D mediolateral oblique (MLO) and craniocaudad (CC) views of both breasts were obtained. CAD: Full Field Digital Mammography with Computer Added Detection was performed. COMPARISON: Prior left excisional breast biopsy for fibroadenoma. FINDINGS: Breast Composition: The breasts are extremely dense, which lowers the sensitivity of mammography. There are no dominant masses or suspicious calcifications. No other significant abnormalities are identified. There has been no significant change since the prior study. BI/SCRN MAMM (CAD)W/ADIEL BILAT IMPRESSION: Stable bilateral screening mammogram. Yearly follow-up mammogram recommended. (A) ASSESSMENT CATEGORY: BIRADS Category 1: Negative. A letter regarding these results will be sent to the patient by the facility within 30 days. Approximately 10% of breast cancers are not detected by mammography. A normal mammogram should not delay biopsy of a clinically suspicious abnormality. [id number] Electronically Signed: Ugo Espinoza MD at 14:36 EST ,
== END | disposition home or self-care (01) ==
LOC: OPBI 12:56
PROVIDERS: PCP Family Medicine; Referring Provider Family Medicine; Visit Provider Family Medicine
DX: Z12.31 Encounter for screening mammogram for malignant neoplasm of breast (principal)
CPT/HCPCS: 77063; 77067

== ENCOUNTER → 2022-10-15 | Outpatient (CLI) | payer OTHER, SELFPAY ==
--- NOTE | 2022-10-15 12:36 | RAD_ITS ---
STUDY: X-RAY - ABDOMEN/PELVIS REASON FOR EXAM: Female, 41 years old. CALCULUS OF KIDNEY TECHNIQUE: Two AP supine views of the abdomen and pelvis. COMPARISON: CT abdomen and pelvis February 05, 2022 FINDINGS: Normal visualized lung bases. There is an unremarkable bowel gas pattern. There is no demonstrated free abdominal air. The visualized liver, spleen are grossly normal in size and morphology. There is a visualized calcification in the left upper quadrant measuring 6.1 mm. This is most likely consistent with the visualized left renal stone. 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 There is a calcification in the right kidney measuring 5.9 mm that appears stable since the prior study. Normal soft tissue structures. Visualized degenerative change at L5-S1. RAD/Abdomen Single View IMPRESSION: Bilateral renal stones similar to the prior study. 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 Recommend correlation with renal colic. At the time of this study it appears there has been a CT scan of the abdomen and pelvis at 2:35 PM. Please refer to the findings on this study for further information. Electronically Signed: Margaret Moore MD at 16:09 EDT ,
--- NOTE | 2022-10-15 14:05 | CT_ITS ---
STUDY: CT ABDOMEN AND PELVIS WITHOUT CONTRAST REASON FOR EXAM: Female, 41 years old. CALCULUS OF KIDNEY RADIATION DOSAGE (If Supplied By Facility): CTDIvol = ( 6.41 ) mGy, DLP = ( 308.93 ) mGycm TECHNIQUE: Transaxial images were obtained from the dome of the diaphragm to the symphysis pubis without oral contrast, and without intravenous contrast. Sagittal and coronal images were reconstructed. Individualized dose optimization techniques were used for this CT. COMPARISON: February 05, 2022 CT scan abdomen and pelvis FINDINGS: The visualized lung bases are unremarkable. The visualized portions of the heart are within normal limits. Normal liver. There is minimal sludge in the gallbladder. Normal spleen. Normal pancreas. Normal bilateral adrenal glands. There are multiple stones within the right kidney. Relatively unchanged since prior study. The largest of which measures 8.5 mm. There are multiple stones in the left kidney the largest cluster measures 7 mm in the lower pole. Since prior study there is resolve of the left side hydronephrosis. There is no visualized hydronephrosis. There are no visualized stones within the visualized ureters. Normal visualized stomach. Normal small intestine. Normal colon. The appendix is visualized and appears normal. Normal abdominal aorta. Normal inferior vena cava. There are few nonspecific right peritoneal lymph nodes. Normal urinary bladder. Normal visualized uterus. There is trace fluid in the right side of the pelvis. Normal abdominal wall. There is visualized degenerative change within the thoracolumbar spine. At L5-S1 there is a visualized disc space narrowing vacuum phenomenon and mild neural foramina narrowing no significant central stenosis. CT/Abdomen/Pelvis without Cont IMPRESSION: Bilateral renal stones. No hydronephrosis. Resolved left hydronephrosis since prior study. No bladder calculi no ureteral calculi. Minimal Sludge in the gallbladder. Degenerative change of the thoracolumbar spine most significant at L5-S1. Electronically Signed: Margaret Moore MD at 14:58 EDT ,
== END | disposition home or self-care (01) ==
PROVIDERS: PCP Family Medicine; Referring Provider Urology; Visit Provider Urology
DX: N20.0 Calculus of kidney (principal); R31.0 Gross hematuria
CPT/HCPCS: 74018; 74176

== ENCOUNTER → 2022-10-17 | Outpatient (CLI) | payer OTHER, SELFPAY ==
[2022-10-17 12:17] LABS: Absolute Lymphocyte Count 1.73 X10^3/uL (0.83-4.51); Absolute Neutrophil Count 4.7 X10^3/uL (2.0-7.7); Basophil# 0.02 X10^3/uL; Basophil% 0.3 % (0-1); Eosinophil# 0.13 X10^3/uL; Eosinophils% 1.9 % (0-5); Hematocrit 41.7 % (37-47); Lymphocyte # 1.73 X10^3/ul (0.83-4.51); Lymphocyte % 24.9 % (19-41); Mean Corp Hgb Conc 33.6 g/dL (32-36); Mean Corpuscular Hgb 31.2 pg (27.0-32.0); Mean Corpuscular Volume 92.9 fL (81-99); Monocyte# 0.35 X10^3/uL; NRBC Flagged by Analyzer 0 % (0-5); Neutrophil # 4.69 X10^3/uL (2.7-7.7); Neutrophil % 67.5 % (47-70); Platelet Count 202 K/mm3 (150-450); Red Blood Count 4.49 M/mm3 (4.2-5.4)
[2022-10-17 13:04] LABS: ALB/GLOB Ratio 0.9 RATIO (0.9-2.4); AST(SGOT) 17 U/L (15-37); Alanine Aminotransfer ALT/SGPT 19 U/L (13-56); Albumin, Serum 3.3 g/dL (3.2-5.0); Alkaline Phosphatase 63 U/L (45-117); Anion Gap 6 (5-15); BUN 7 mg/dL (7-18); Calcium,Total 8.6 mg/dL (8.5-10.1); Chloride 107 mmol/L (98-107); Cholesterol 183 mg/dL (200); EST Glomerular Filtration Rate 97 mL/min (>60); Est Glom Filt Rate - Afr Amer 118 mL/min (>60); Globulin 3.7 g/dL (2.2-4.2); Glucose 87 mg/dL (74-106); High Density Lipoprotein 46 mg/dL; Potassium 3.8 mmol/L (3.5-5.1); Sodium Level 141 mmol/L (136-145); Triglycerides 134 mg/dL; Very Low Density Lipoprotein 27 mg/dL (5-40)
== END | disposition home or self-care (01) ==
LOC: LAB 10:54
PROVIDERS: PCP Family Medicine; Visit Provider Family Medicine
DX: Z01.419 Encounter for gynecological examination (general) (routine) without abnormal findings (principal); D68.51 Activated protein C resistance; K21.9 Gastro-esophageal reflux disease without esophagitis
CPT/HCPCS: 36415; 80053; 80061; 85025

== ENCOUNTER → 2022-10-22 | Outpatient (CLI) | payer OTHER, SELFPAY ==
--- NOTE | 2022-10-22 09:25 | US_ITS ---
STUDY: ULTRASOUND BREAST - RIGHT REASON FOR EXAM: Female, 41 years old. Palpable lump in the right breast. TECHNIQUE: Axial and longitudinal images of the RIGHT breast were performed with a high resolution ultrasound transducer. # OF IMAGES: 19 COMPARISON: Comparison is made with prior mammogram dated September 21, 2022 and prior sonogram of the right breast dated October 30, 2011. FINDINGS: RIGHT Breast: The inferior aspect of the right breast was examined with ultrasound. There is evidence of dense fibroglandular tissue. Mild degree of blood dilated subareolar ducts. US/Breast Limited Unilateral IMPRESSION: Mild degree of dilated subareolar ducts. ASSESSMENT CATEGORY: BIRADS Category 2: Benign. A letter regarding these results will be sent to the patient by the facility within 30 days. Electronically Signed: Ugo Espinoza MD at 8:47 EDT ,
== END | disposition home or self-care (01) ==
PROVIDERS: PCP Family Medicine; Visit Provider Family Medicine
DX: N63.10 Unspecified lump in the right breast, unspecified quadrant (principal)
CPT/HCPCS: 76642

== ENCOUNTER → 2023-02-12 | Outpatient (CLI) | payer OTHER, SELFPAY | END | disposition home or self-care (01) | LOC: PSN 09:19 | PROVIDERS: PCP Family Medicine; Referring Provider Internal Medicine Cardiovascular Disease; Visit Provider Internal Medicine Cardiovascular Disease | DX: R00.2 Palpitations (principal) | CPT/HCPCS: 93225; 93226 ==

== ENCOUNTER → 2023-10-21 | Outpatient (CLI) | payer OTHER, SELFPAY ==
[2023-10-21 07:43] LABS: Absolute Lymphocyte Count 2.18 X10^3/uL (0.83-4.51); Absolute Neutrophil Count 5.3 X10^3/uL (2.0-7.7); Basophil# 0.04 X10^3/uL; Basophil% 0.5 % (0-1); Eosinophil# 0.19 X10^3/uL; Eosinophils% 2.3 % (0-5); Hemoglobin 14.1 g/dL (12.0-15.0); Lymphocyte # 2.18 X10^3/ul (0.83-4.51); Lymphocyte % 26.5 % (19-41); Mean Corp Hgb Conc 33.6 g/dL (32-36); Mean Corpuscular Hgb 30.1 pg (27.0-32.0); Mean Corpuscular Volume 89.7 fL (81-99); Mean Platelet Vol. 10.7 fl (6.2-12.0); Monocyte# 0.45 X10^3/uL; Monocyte% 5.5 % (0-10); NRBC Flagged by Analyzer 0 % (0-5); Neutrophil # 5.34 X10^3/uL (2.7-7.7); Neutrophil % 64.8 % (47-70); Platelet Count 220 K/mm3 (150-450); RBC Distribution Width CV 12.5 % (11.6-14.6); RBC Distribution Width SD 40.7 fl (35.1-43.9); Red Blood Count 4.68 M/mm3 (4.2-5.4); White Blood Count 8.2 K/mm3 (4.4-11.0)
[2023-10-21 08:42] LABS: ALB/GLOB Ratio 0.9 RATIO (0.9-2.4); AST(SGOT) 23 U/L (15-37); Alanine Aminotransfer ALT/SGPT 17 U/L (13-56); Albumin, Serum 3.3 g/dL (3.2-5.0); Alkaline Phosphatase 56 U/L (45-117); Anion Gap 5 (5-15); BUN 9 mg/dL (7-18); BUN/Creat Ratio 11.7 RATIO (10-20); Calcium,Total 8.9 mg/dL (8.5-10.1); Chloride 108 mmol/L (98-107); Cholesterol 161 mg/dL (200); Creatinine, Serum 0.77 mg/dL (0.55-1.02); EST Glomerular Filtration Rate 87 mL/min (>60); Est Glom Filt Rate - Afr Amer 105 mL/min (>60); Globulin 3.8 g/dL (2.2-4.2); Glucose 86 mg/dL (74-106); High Density Lipoprotein 49 mg/dL; Potassium 3.7 mmol/L (3.5-5.1); Protein, Total 7.1 g/dL (6.4-8.2); Sodium Level 141 mmol/L (136-145); Triglycerides 104 mg/dL; Very Low Density Lipoprotein 21 mg/dL (5-40)
== END | disposition home or self-care (01) ==
LOC: LAB 06:20
PROVIDERS: PCP Family Medicine; Referring Provider Family Medicine; Visit Provider Family Medicine
DX: Z00.00 Encounter for general adult medical examination without abnormal findings (principal); D68.1 Hereditary factor XI deficiency; Z86.79 Personal history of other diseases of the circulatory system
CPT/HCPCS: 36415; 80053; 80061; 85025

== ENCOUNTER → 2023-10-22 | Outpatient (CLI) | payer OTHER, SELFPAY ==
[2023-10-29 07:08] LABS: Age Gdln ACOG Testing 30-65 (.); HPV APTIMA, High Risk Positive (Negative); HPV Genotype 16, Aptima Negative (Negative); HPV Genotype 18,45 Aptima Negative (Negative)
[2023-10-29 16:31] LABS: HPV Reflexed? YES, CHARGE PATIENT
== END | disposition home or self-care (01) ==
PROVIDERS: PCP Family Medicine; Visit Provider Family Medicine
DX: Z12.4 Encounter for screening for malignant neoplasm of cervix (principal)
CPT/HCPCS: 87624; 88175; G0145

== ENCOUNTER → 2023-11-03 | Outpatient (CLI) | payer OTHER, SELFPAY ==
--- NOTE | 2023-11-03 11:58 | BI_ITS ---
MAMMOGRAPHY - BILATERAL SCREENING REASON FOR EXAM: Female, 42 years old. Routine annual screening examination. PERTINENT HISTORY: Non-contributory. Prior left excisional breast biopsy. TECHNIQUE: Digital bilateral breast adiel (3D mammographic acquisition) in the CC and MLO projections. 2-D mediolateral oblique (MLO) and craniocaudad (CC) views of both breasts were obtained. CAD: Full Field Digital Mammography with Computer Added Detection was performed. COMPARISON: Comparison is made with prior study dated September 21, 2022 and July 08, 2021. FINDINGS: Breast Composition: The breasts are extremely dense, which lowers the sensitivity of mammography. There are no dominant masses or suspicious calcifications. Architectural distortion is seen in the upper outer quadrant of the left breast in keeping with the history of prior excisional breast biopsy. No other significant abnormalities are identified. There has been no significant change since the prior study. BI/SCRN MAMM (CAD)W/ADIEL BILAT IMPRESSION: Stable bilateral screening mammogram. Yearly follow-up mammogram recommended. (A) ASSESSMENT CATEGORY: BIRADS Category 2: Benign. A letter regarding these results will be sent to the patient by the facility within 30 days. Approximately 10% of breast cancers are not detected by mammography. A normal mammogram should not delay biopsy of a clinically suspicious abnormality. [id number] Electronically Signed: Ugo Espinoza MD at 12:51 EDT ,
== END | disposition home or self-care (01) ==
LOC: OPBI 11:57
PROVIDERS: PCP Family Medicine; Referring Provider Family Medicine; Visit Provider Family Medicine
DX: Z12.31 Encounter for screening mammogram for malignant neoplasm of breast (principal)
CPT/HCPCS: 77063; 77067

== ENCOUNTER → 2024-04-13 | Outpatient (CLI) | payer OTHER, SELFPAY | END | disposition home or self-care (01) | PROVIDERS: PCP Family Medicine; Referring Provider Family Medicine; Visit Provider Family Medicine | DX: Z11.2 Encounter for screening for other bacterial diseases (principal) ==

== ENCOUNTER → 2024-05-01 | Outpatient (CLI) | payer OTHER, SELFPAY ==
[2024-05-01 08:44] LABS: Bacteria 0 SEEN /hpf (None Seen); Red Blood Cells-Urine 0 SEEN /hpf (0-5)
[2024-05-01 10:33] LABS: Color, Urine Yellow (Yellow); Glucose, Dipstick Normal (Normal); Ketone-Dipstick Negative (Negative); Leukocyte Esterase-Dipstick 500 /ul (Negative); Nitrite-Dipstick Negative (Negative); Occult Blood-Urine 250 /ul (Negative); Protein-Dipstick 100 mg/dl (Negative); Specific Gravity, Urine 1.025 (1.002-1.030); Urine Bilirubin Dipstick Negative (Negative); Urine Clarity Clear (Clear); Urine Urobilinogen 1 mg/dl (Normal)
[2024-05-01 10:43] LABS: Calcium Oxalate Crystals Ur 2+ /hpf (<or=2+); Mucous, Urine 1+ /hpf (<or=2+); Squamous Epithelial Cells - UA 0-5 SEEN /hpf (5-10); White Blood Cells 0-5 SEEN /hpf (0-5)
== END | disposition home or self-care (01) ==
PROVIDERS: PCP Family Medicine; Visit Provider Nurse Practitioner Family
DX: R30.0 Dysuria (principal)
CPT/HCPCS: 81001; 87086

== ENCOUNTER 2024-05-02 09:48 | Day surgery (SDC) | payer OTHER, SELFPAY ==
[2024-05-02] VITALS (9 sets, daily range): BP systolic 104–136; BP diastolic 58–83; PULSE 78–102; RESP 14–20; TEMP 36.1–37.6; O2SAT 99–100; BMI 23.5
[2024-05-02 10:12] LABS: Absolute Lymphocyte Count 1.47 X10^3/uL (0.83-4.51); Absolute Neutrophil Count 8.6 X10^3/uL (2.0-7.7); Basophil# 0.04 X10^3/uL; Basophil% 0.4 % (0-1); Eosinophil# 0.02 X10^3/uL; Eosinophils% 0.2 % (0-5); Hematocrit 42.6 % (37-47); Hemoglobin 14.4 g/dL (12.0-15.0); Lymphocyte # 1.47 X10^3/ul (0.83-4.51); Lymphocyte % 13.8 % (19-41); Mean Corp Hgb Conc 33.8 g/dL (32-36); Mean Corpuscular Hgb 30.6 pg (27.0-32.0); Mean Corpuscular Volume 90.4 fL (81-99); Mean Platelet Vol. 10.5 fl (6.2-12.0); Monocyte# 0.45 X10^3/uL; Monocyte% 4.2 % (0-10); NRBC Flagged by Analyzer 0 % (0-5); Neutrophil # 8.62 X10^3/uL (2.7-7.7); Platelet Count 213 K/mm3 (150-450); RBC Distribution Width CV 11.9 % (11.6-14.6); Red Blood Count 4.71 M/mm3 (4.2-5.4); White Blood Count 10.6 K/mm3 (4.4-11.0)
--- NOTE | 2024-05-02 10:14 | EX.ED.DYSGE1 ---
HPI History of Present Illness Chief Complaint: Flank Pain Detail of Chief Complaint: Right flank pain with hematuria and dysuria, also ocular migraine Informant: patient and family Onset/Context/Timing Onset: Weeks Timing: Intermittent and Waxes and wanes Quality: Pain right flank, right inguinal area Location: Flank on the right and left sided headache Current Severity: Moderate Maximum Severity: Severe Worsened by: Flank pain nothing, headache light Relieved by: Nothing for either Associated Symptoms Associated Symptoms: Patient thought she was seeing floaters. Was seen by ophthalmology yesterd Narrative Narrative: Patient presents with intermittent right flank pain and right inguinal pain for the past month. Is now been constant for the past 24 hours. She has noted blood in her urine. She has history of bilateral renal calculi as well as ureterolithiasis. She has no history of endometriosis, ovarian cyst. Last menses was 1.5 weeks ago. She is on control pills. She has not missed any of her doses. She denies symptoms of . She was seen by ophthalmology yesterday because of floaters. She had an extensive exam which revealed no abnormality. 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 She does endorse light sensitivity and sound sensitivity. She also has nausea. Patient denies rhinorrhea, congestion postnasal drainage. Patient [place] ringing or ears or decreased hearing. Patient denies neck pain or neck stiffness. Patient has no cardiac respiratory symptoms. Patient's only GI symptom is nausea. Prior similar symptoms: Yes (Migraine and obstructing ureteral stone.) Recent Illness/Hospitalization: Yes (Seen by ophthalmology yesterday.) [facility] Medical History Wears contact lenses Wears glasses Anxiety MTHFR mutation Non-smoker History of stress test History of echocardiogram Cardiology follow-up encounter History of irregular heartbeat COVID (10/2021) AVNRT (AV linus re-entry tachycardia) Thrombocytopenia Renal calculus, bilateral Pituitary adenoma Paroxysmal supraventricular tachycardia History of kidney stones Asthma Home Medications ?Medication ?Instructions ?Recorded ?Last Taken ?Type albuterol sulfate 90 mcg/actuation 1 puff inhalation Q6H PRN PRN Sob 09/24/20 Unknown History aerosol inhaler &/Or Wheezing norgestimate 0.25 mg-ethinyl 1 tab PO DAILY 01/08/22 Unknown History estradiol 35 mcg tablet metoprolol tartrate 25 mg tablet 25 mg PO BID #180 tabs 03/16/24 Unknown Rx nitrofurantoin 100 mg PO BID 7 days #14 caps 04/30/24 Unknown Rx monohydrate/macrocrystals 100 mg capsule (Macrobid) Allergy/AdvReac Type Severity Reaction Status Date / Time ciprofloxacin (From Cipro) AdvReac PT UNSURE Verified 05/02/24 09:49 OF REACTION Family History Other Adopted Surgical History History of colonoscopy (05/22/22) History of radiofrequency ablation procedure for cardiac arrhythmia (04/30/09) H/O lumpectomy History of lithotripsy Social History Smoking Status: Never smoker alcohol intake: never ROS ROS ED Constitutional Constitutional ED: Denies chills, fever(s), subjective, sweats or weight loss Eyes Eyes: Reports change in vision left; Denies blurry vision or diplopia ENT ENT ED: Denies ear pain, rhinorrhea or sore throat Cardiovascular Cardiovascular: Denies chest pain, palpitations or racing heartbeat Respiratory/Chest Respiratory/Chest: Denies cough, dyspnea or dyspnea on exertion Gastrointestinal Gastrointestinal: Reports abdominal pain and nausea; Denies constipation, diarrhea, melena or vomiting Genitourinary Genitourinary ED: Reports dysuria and hematuria; Denies urinary frequency Musculoskeletal Musculoskeletal: Denies arthralgias, myalgias or neck pain Integumentary Denies rash Neurologic Neurologic: Reports headache(s); Denies paresthesias or weakness Endocrine Endocrinology: Denies cold intolerance or heat intolerance Hematologic/Lymphatic Hematologic/Lymphatic: Reports systems reviewed and no addt'l complaints, except as documented EXAM Physical Exam Const Vital Signs: 05/02/24 09:49 05/02/24 11:38 Temperature 97 F L Temperature Source Temporal Pulse Rate 102 H Respiratory Rate 16 Respiratory Effort Normal Non-Labored Respiratory Pattern Normal Blood Pressure 136/83 H Blood Pressure Mean 100 Pulse Ox 100 Oxygen Delivery Method Room Air Positive well nourished and well developed Constitutional Narrative: Patient did squint when I performed funduscopic exam. General Appearance ED: well developed and NAD; Negative for pallor HEENT Reports moist mucous membranes HEENT Narrative: Head is atraumatic normocephalic. Ears normal. Nares patent. Posterior pharynx erythema or exudate. Eyes PERRL and EOMs intact bilaterally Eyes Narrative: Cup-to-disc ratio is normal. There is no papilledema. There is no tenderness over the temporal artery. Neck no lymphadenopathy, supple and no JVD Chest Wall inspection of chest normal and palpation of chest normal Resp normal respiratory effort and clear to auscultation bilaterally Cardio regular rate, regular rhythm, S1 normal heart sound, S2 normal heart sound and no murmurs GI normal to inspection, nondistended, normoactive bowel sounds, non-tender, non-distended and no masses; Negative for hepatosplenomegaly Back/Spine no CVA tenderness Thoracic Spine / Upper Back: Negative for thoracic spinal tenderness Lumbar Spine / Lower Back: Negative for lumbar spinal tenderness Extremity normal to inspection General Extremety ED: Negative for edema or tenderness General Extremity: Negative for edema Neuro oriented x3 and CN's II-XII intact bilaterally Sensorium / Orientation: alert Psych mental status grossly normal Skin no rashes or lesions noted, no wounds and skin turgor normal General Skin Exam: Negative for jaundice or pallor MDM MDM MDM Narrative Medical decision making narrative: With diagnosis of ocular migraine still complaining of headache patient was treated with IV Toradol, Reglan and Benadryl. With complaint of dysuria and hematuria and prior history of renal as well as ureteral stones will obtain UA to assess for infection and blood. Base metabolic panel to assess for any renal dysfunction. CT of the abdomen and pelvis without contrast after test has been resulted. History & Record Review Additional record(s) reviewed:: Prior ED visit (Diagnosed with complicated UTI January 2022. Has been seen in 2019 and 2013 for unspecified abdominal pain. Also in 2013 seen for ureteral calculus.) Lab Data Attestation: I reviewed the patient's lab results. Lab results narrative: CBC is unremarkable. Basic metabolic panel is unremarkable. Potassium is slightly decreased at 3.3. Serum test is negative. Labs: Laboratory Results - last 24 hr 05/02/24 05/02/24 10:05 11:45 WBC 10.6 RBC 4.71 Hgb 14.4 Hct 42.6 MCV 90.4 MCH 30.6 MCHC 33.8 RDW Std Deviation 39.0 RDW Coeff of Jerrell 11.9 Plt Count 213 MPV 10.5 Immature Gran % (Auto) 0.400 Neut % (Auto) 81.0 H Lymph % (Auto) 13.8 L [place] % (Auto) 4.2 Eos % (Auto) 0.2 Baso % (Auto) 0.4 Absolute Neuts (auto) 8.6 H Absolute Lymphs (auto) 1.47 Nucleated RBC % 0 Sodium 139 Potassium 3.3 L Chloride 107 Carbon Dioxide 26.0 Anion Gap 6 BUN 9 Creatinine 0.88 Estim Creat Clear Calc 76.37 Est GFR (MDRD) Af Amer 90 Est GFR (MDRD) Non-Af 74 BUN/Creatinine Ratio 10.2 Glucose 130 H Calcium 9.5 Serum , Qual NEGATIVE Urine Color Yellow Urine Clarity Sl. Cloudy Urine pH 6.0 Ur Specific [place] 1.020 Urine Protein 30 H Urine Glucose (UA) Normal Urine Ketones Negative Urine Occult Blood 250 H Urine Nitrite Negative Urine Bilirubin Negative Urine Urobilinogen 1 H Ur Leukocyte Esterase 500 H Urine RBC 0-5 SEEN Urine WBC 25-50 SEEN Ur Squamous Epith Cells 0-5 SEEN Urine Bacteria 1+ Urine Mucus 2+ Radiography Diagnostic Testing: Clinical Impression(s) from Imaging Studies Abdomen/Pelvis CT 05/02/24 10:40 IMPRESSION: 5.7 mm calculus at the right ureterovesical junction causing a mild degree of right hydronephrosis and right hydroureter. Nonobstructive bilateral intrarenal calculi. Small umbilical hernia. Electronically Signed: Ugo Espinoza MD at 11:17 EDT , Management Discussion w/another healthcare provider: [employer] (Spoke with Dr. Keith. Plan is OR.) Discharge Plan Triage Chief Complaint: Flank Pain ED Provider: Tylor Goncalves Dx/Rx/DC Orders Prescriptions: No Action norgestimate-ethinyl estradiol 0.25-35 mg-mcg tablet 1 tab PO DAILY Patient Comments: TAKE 1 TABLET BY MOUTH ONCE DAILY, SKIP INACTIVE TABLETS nitrofurantoin monohyd/m-cryst [Macrobid] 100 mg capsule 100 mg PO BID 7 Days Qty: 14 0RF Rx Instructions: must administer with a meal/food albuterol sulfate 1 PUFF inhaler 1 puff INHALATION Q6H PRN PRN (Reason: Sob &/Or Wheezing) metoprolol tartrate 25 mg tablet 25 mg PO BID Qty: 180 3RF Primary Care Provider: Rosy Teague Print Language: Venezuelan
[2024-05-02] MEDS: Ketorolac 15 MG/ML Vial IV ×2 (10:19→16:08)
[2024-05-02] MEDS: Metoclopramide 10 MG/2 ML Vial 5 MG IV (10:19)
[2024-05-02] MEDS: DiphenhydrAMINE 50 MG/ML Syringe 25 MG IV (10:19)
[2024-05-02] MEDS: 0.9% Normal Saline (1000mL) 1,000 ML 250 ML IV ×2 (10:22→12:27)
[2024-05-02 10:29] LABS: Anion Gap 6 (5-15); BUN 9 mg/dL (7-18); BUN/Creat Ratio 10.2 RATIO (10-20); Calcium,Total 9.5 mg/dL (8.5-10.1); Chloride 107 mmol/L (98-107); Creatinine, Serum 0.88 mg/dL (0.55-1.02); EST Glomerular Filtration Rate 74 mL/min (>60); Est Glom Filt Rate - Afr Amer 90 mL/min (>60); Estimated Creatinine Clearance 76.37 ml/min; Glucose 130 mg/dL (74-106); Internal QC Validated? YES +Cl - CLEAR BKGD; Potassium 3.3 mmol/L (3.5-5.1); Pregnancy, Serum, hCG Quali. NEGATIVE Negative; Sodium Level 139 mmol/L (136-145)
--- NOTE | 2024-05-02 10:40 | CT_ITS ---
STUDY: CT ABDOMEN AND PELVIS WITHOUT CONTRAST REASON FOR EXAM: Female, 43 years old. Kidney Stone -- Pain on right side. RADIATION DOSAGE (If Supplied By Facility): CTDIvol = ( 6.94 ) mGy, DLP = ( 367.53 ) mGycm TECHNIQUE: Transaxial images were obtained from the dome of the diaphragm to the symphysis pubis without oral contrast, and without intravenous contrast. Sagittal and coronal images were reconstructed. Individualized dose optimization techniques were used for this CT. COMPARISON: Comparison is made with prior study October 15, 2022. FINDINGS: The visualized lung bases are unremarkable. The visualized portions of the heart are within normal limits. Normal liver. Normal gallbladder and extrahepatic biliary system. Normal spleen. Normal pancreas. Normal bilateral adrenal glands. There are nonobstructive right intrarenal calculi. The largest calculus measures 1 cm. This is in the posterior midpole. There is also evidence of a 7.8 mm calculus in the right mid pole calyx just proximal to the renal pelvis. There is a 5.7 mm calculus at the right ureteral vesicle junction causing a mild degree of right hydronephrosis and right hydroureter. Nonobstructing left intrarenal calculi. The largest is in the lower pole and measures 6.9 mm. Normal visualized stomach. Normal small intestine. Normal colon. The appendix is visualized and appears normal. Normal abdominal aorta. Normal inferior vena cava. Normal retroperitoneum. Normal urinary bladder. There is a small umbilical hernia containing fat. This space narrowing and degeneration at the L5-S1 level. CT/Abdomen/Pelvis without Cont IMPRESSION: 5.7 mm calculus at the right ureterovesical junction causing a mild degree of right hydronephrosis and right hydroureter. Nonobstructive bilateral intrarenal calculi. Small umbilical hernia. Electronically Signed: Ugo Espinoza MD at 11:17 EDT ,
[2024-05-02 11:50] LABS: Color, Urine Yellow (Yellow); Glucose, Dipstick Normal (Normal); Ketone-Dipstick Negative (Negative); Leukocyte Esterase-Dipstick 500 /ul (Negative); Nitrite-Dipstick Negative (Negative); Occult Blood-Urine 250 /ul (Negative); Protein-Dipstick 30 mg/dl (Negative); Urine Bilirubin Dipstick Negative (Negative); Urine Clarity Sl. Cloudy (Clear); Urine Urobilinogen 1 mg/dl (Normal)
[2024-05-02 12:02] LABS: Squamous Epithelial Cells - UA 0-5 SEEN /hpf (5-10); White Blood Cells 25-50 SEEN /hpf (0-5)
[2024-05-02 12:03] LABS: Bacteria 1+ /hpf (None Seen); Mucous, Urine 2+ /hpf (<or=2+); Red Blood Cells-Urine 0-5 SEEN /hpf (0-5)
--- NOTE | 2024-05-02 12:21 | PCM.CONS.U ---
HPI Consult Data Date of Consult: 05/02/24 HPI Narrative Reason for Consultation: Right kidney stone HPI Narrative: MAHSA MORE, is a 43 F who presents TER with severe pain in the right side CT scan was done demonstrated several stones in the right kidney she also has some not obstructing stone the left kidney but seven mostly pain in the right side. Plan to take a surgery today for cystoscopy possible ureteroscopy laser lithotripsy or to stent placement on the right side. [facility] Medical History Wears contact lenses Wears glasses Anxiety MTHFR mutation Non-smoker History of stress test History of echocardiogram Cardiology follow-up encounter History of irregular heartbeat COVID (10/2021) AVNRT (AV linus re-entry tachycardia) Thrombocytopenia Renal calculus, bilateral Pituitary adenoma Paroxysmal supraventricular tachycardia History of kidney stones Asthma Home Medications ?Medication ?Instructions ?Recorded ?Last Taken ?Type albuterol sulfate 90 mcg/actuation 1 puff inhalation Q6H PRN PRN Sob 09/24/20 Unknown History aerosol inhaler &/Or Wheezing norgestimate 0.25 mg-ethinyl 1 tab PO DAILY 01/08/22 Unknown History estradiol 35 mcg tablet metoprolol tartrate 25 mg tablet 25 mg PO BID #180 tabs 03/16/24 Unknown Rx nitrofurantoin 100 mg PO BID 7 days #14 caps 04/30/24 Unknown Rx monohydrate/macrocrystals 100 mg capsule (Macrobid) Allergy/AdvReac Type Severity Reaction Status Date / Time ciprofloxacin (From Cipro) AdvReac PT UNSURE Verified 05/02/24 09:49 OF REACTION Family History Other Adopted Surgical History History of colonoscopy (05/22/22) History of radiofrequency ablation procedure for cardiac arrhythmia (04/30/09) H/O lumpectomy History of lithotripsy Social History Smoking Status: Never smoker alcohol intake: never Lab / Micro Data 05/02/24 10:05 05/02/24 10:05 Labs: Laboratory Results - last 24 hr 05/02/24 10:05: WBC 10.6, RBC 4.71, Hgb 14.4, Hct 42.6, MCV 90.4, MCH 30.6, MCHC 33.8, RDW Std Deviation 39.0, RDW Coeff of Jerrell 11.9, Plt Count 213, MPV 10.5, Immature Gran % (Auto) 0.400, Neut % (Auto) 81.0 H, Lymph % (Auto) 13.8 L, [place] % (Auto) 4.2, Eos % (Auto) 0.2, Baso % (Auto) 0.4, Absolute Neuts (auto) 8.6 H, Absolute Lymphs (auto) 1.47, Nucleated RBC % 0, Sodium 139, Potassium 3.3 L, Chloride 107, Carbon Dioxide 26.0, Anion Gap 6, BUN 9, Creatinine 0.88, Estim Creat Clear Calc 76.37, Est GFR (MDRD) Af Amer 90, Est GFR (MDRD) Non-Af 74, BUN/Creatinine Ratio 10.2, Glucose 130 H, Calcium 9.5, Serum , Qual NEGATIVE 05/02/24 11:45: Urine Color Yellow, Urine Clarity Sl. Cloudy, Urine pH 6.0, Ur Specific [place] 1.020, Urine Protein 30 H, Urine Glucose (UA) Normal, Urine Ketones Negative, Urine Occult Blood 250 H, Urine Nitrite Negative, Urine Bilirubin Negative, Urine Urobilinogen 1 H, Ur Leukocyte Esterase 500 H, Urine RBC 0-5 SEEN, Urine WBC 25-50 SEEN, Ur Squamous Epith Cells 0-5 SEEN, Urine Bacteria 1+, Urine Mucus 2+ Imaging Radiology Impression Abdomen/Pelvis CT 05/02/24 10:40 IMPRESSION: 5.7 mm calculus at the right ureterovesical junction causing a mild degree of right hydronephrosis and right hydroureter. Nonobstructive bilateral intrarenal calculi. Small umbilical hernia. Electronically Signed: Ugo Espinoza MD at 11:17 EDT ,
[2024-05-02] MEDS: Ceftriaxone 1 GM/50 ML BAG IV (12:26)
--- NOTE | 2024-05-02 13:38 | ED.RN ---
spoke with Thanh in OR for pt to come to surgery. aware that pt did not have chlorahex wipes here in ED. They will have staff to come get pt.
--- NOTE | 2024-05-02 14:33 | PCM.PRE.AN2 ---
ASA Classification* ASA Classification ASA Classification: 2 Assessment & Plan Anesthesia* Anesthesia Assessment Anesthesia Assessment: Discussed sedation and/or anesthesia options, risks, benefits, and alternatives with patient/parents/legal guardian/POA. Questions invited. The patient/parents/legal guardian/POA seems to understand and agrees to proceed with anesthesia plan. Reviewed the physical assessment, medical history, allergy history and patient home medications list prior to surgery/procedure/anesthetic and documented any changes. Performed airway and anesthesia risk assessments. Anesthesia Type Anesthesia Type: General History Source History Obtained from:: Patient and Chart Anesthesia Focused Assessment* Temperature: 99.7 F Pulse Rate: 92 Blood Pressure: 123/70 Respiratory Rate: 16 Pulse Ox: 100 Oxygen Delivery Method: Room Air Airway Assessment Mouth opens: >3 cm Mallampati Score: II Teeth Condition: Intact Neck Range of motion (ROM): Full ROM Focused Labs Anesthesia Preop lab: CBC WBC 10.6 K/mm3 (4.4-11.0) 05/02/24 10:05 RBC 4.71 M/mm3 (4.2-5.4) 05/02/24 10:05 Hgb 14.4 g/dL (12.0-15.0) 05/02/24 10:05 Hct 42.6 % (37-47) 05/02/24 10:05 Plt Count 213 K/mm3 (150-450) 05/02/24 10:05 CHEMISTRY Potassium 3.3 mmol/L (3.5-5.1) L 05/02/24 10:05 Sodium 139 mmol/L (136-145) 05/02/24 10:05 Magnesium 2.1 mg/dL (1.6-2.6) 02/09/18 11:02 BUN 9 mg/dL (7-18) 05/02/24 10:05 Creatinine 0.88 mg/dL (0.55-1.02) 05/02/24 10:05 Glucose 130 mg/dL (74-106) H 05/02/24 10:05 TSH 0.75 uIU/mL (0.358-3.74) 02/09/18 11:02 COAG PT 14.3 SECONDS (11.7-14.9) 12/14/14 15:56 HCG, Quant 1109 mIU/mL (<9 non-preg) H 12/14/14 15:56 Urine Test Negative Negative 05/22/22 09:42 Pre-Assessment Diagnosis/Proposed Procedure Planned Operative Procedure(s): Cystoscopy, ureteroscopy, retrograde laser lithotripsy, stent on the right. Anesthesia History Anesthesia History - covered button maker: Anesthesia History - covered button maker Hx Hospitalization No 05/20/22 13:24 Any Problems With Anesthesia No 05/02/24 12:30 Cholinesterase deficiency No 05/02/24 12:30 You/Your Family Experience No 05/02/24 12:30 fever (hyperthermia) with Relationship Recent Exposure to Contagious No 05/02/24 12:30 Disease Does patient have nerve No 05/02/24 12:30 stimulator Patient instructed to have device shut off --Does patient have Pacemaker No 05/02/24 12:30 or ICD? When Was Last Pacemaker Check QUESTION #4 FULL TEXT: You/Your Family Experience fever (hyperthermia) with Anesthesia Last Oral Intake Last Oral intake: Last Oral Intake NPO since 07:00 05/02/24 12:30 Meds taken in AM with sips of water? Meds patient instructed to take am of surgery PONV PONV - covered button maker: PONV - covered button maker Female HX of Motion Sickness HX of N/V After Surgery Non-Smoker Duration of Surgery greater than 60 minutes Number of Risk Factors PONV Score Height & Weight Height & Weight: Anesthesia: Height & Weight Height 5 ft 6 in 05/02/24 12:30 Weight: 66.043 kg 05/02/24 12:30 Body Mass Index (BMI) 23.5 05/02/24 12:30 Respiratory Assessment Respiratory Assessment - covered button maker: Respiratory Tract Infection Hx - covered button maker Hx Respiratory Tract Infection No 05/02/24 12:30 STOP Sleep Apnea STOP Sleep Apnea - covered button maker: STOP Sleep Apnea - covered button maker Hx Hypertension Yes 05/02/24 12:30 Hx Sleep Apnea No 05/02/24 12:30 CPAP No 05/22/22 10:59 BIPAP No 09/24/20 11:17 Do you snore loudly (louder No 05/02/24 12:30 than talking or can be heard Do you often feel tired/ No 05/02/24 12:30 fatigued/ sleepy during daytime? Has anyone observed you stop No 05/02/24 12:30 breathing during sleep? STOP Results Negative 05/02/24 12:30 QUESTION #5 FULL TEXT : Do you snore loudly (louder than talking or can be heard through closed doors)? 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 Specify any problems Hx of Preganancy in last 3 Months Nurse Filling Out Transfusion & Questions: Date: Time: Patient unable to answer at this time (ie. confused, unrespo /Reproduction History /Reproductive History - covered button maker: /Reproductive Hx- covered button maker Hx Now No 05/02/24 12:30 Gestational Age (in weeks): EDC: Hx Hx Para Hx Section SAB No 05/02/24 09:49 Active Medications Active Medications: Current Medications Generic Name Dose Route Start Last Admin Trade Name Freq PRN Reason Stop Dose Admin Sodium Chloride 1,000 mls @ 250 mls/hr 05/02/24 10:00 05/02/24 12:27 IV 250 mls/hr .Q4H DERIK Administration PFSH Medical History Wears contact lenses Wears glasses Anxiety MTHFR mutation Non-smoker History of stress test History of echocardiogram Cardiology follow-up encounter History of irregular heartbeat COVID (10/2021) AVNRT (AV linus re-entry tachycardia) Thrombocytopenia Renal calculus, bilateral Pituitary adenoma Paroxysmal supraventricular tachycardia History of kidney stones Asthma Home Medications ?Medication ?Instructions ?Recorded ?Last Taken ?Type albuterol sulfate 90 mcg/actuation 1 puff inhalation Q6H PRN Sob &/Or 09/24/20 Unknown History aerosol inhaler Wheezing norgestimate 0.25 mg-ethinyl 1 tab PO DAILY 01/08/22 05/02/24 History estradiol 35 mcg tablet metoprolol tartrate 25 mg tablet 25 mg PO BID #180 tabs 03/16/24 05/02/24 Rx nitrofurantoin 100 mg PO BID 7 days #14 caps 04/30/24 05/01/24 Rx monohydrate/macrocrystals 100 mg capsule (Macrobid) clobetasol 0.05 % topical cream 1 applic topical DAILY PRN yeast 05/02/24 Unknown History infection Allergy/AdvReac Type Severity Reaction Status Date / Time ciprofloxacin (From Cipro) AdvReac PT UNSURE Verified 05/02/24 09:49 OF REACTION Family History Other Adopted Surgical History History of colonoscopy (05/22/22) History of radiofrequency ablation procedure for cardiac arrhythmia (04/30/09) H/O lumpectomy History of lithotripsy Social History Smoking Status: Never smoker alcohol intake: never Review of Systems (Anesthesia) ROS Narrative System reviewed and no additional complaints, except as documented.
--- NOTE | 2024-05-02 15:05 | CALC_PTH ---
PATIENT: MAHSA MORE LOC: [facility] [place] U#:[id number] AGE/SX: 43/F ROOM: RE05/02/[address]: Dr. Michoacano Keith MD : 1980 BED: DIS: 05/02/2024 SPEC #: [id number] RECD: 05/02/24 15:54 STATUS: PRATEEK ORELLANA #: [id number] LANETTE: 05/02/24 15:[address]: Michoacano Keith DEPT: SURGICAL PATHOLOGY RECD BY: Dequan Mayer ENTERED: 05/03/24 09:57 SP TYPE: Calculi OTHR DR: Dr. Rosy Teague MD Tissues: CALCULI Procedures: Surgery Specimen Level I HEADER OPERATION: Ureteroscopy, basket retrieval, balloon dilatation PRE-OP DIAGNOSIS: Ureteral calculi TISSUE SUBMITTED: Ureteral calculi GROSS DIAGNOSIS A fragment of stone, clinically ureteral calculus submitted for analysis (gross only). 05/03/2024 COMMENT The calculus is submitted in its entirety for chemical stone analysis. The results from this study will be reported separately. GROSS DESCRIPTION Received without fixative labeled with the patient's name and designated ureteral calculi. The specimen consists of a fragment of rivera-light brown stone measuring 0.5 x 0.4 x 0.1 cm. The entire specimen is submitted for stone analysis. 05/03/2024 CPT: 68735
--- NOTE | 2024-05-02 15:40 | OP.PCM_ITS ---
Report of Operation Date of Procedure: 05/02/24 Pre-Operative Diagnosis: Obstructing distal right ureteral calculi and urinary tract infection Post-Operative Diagnosis: The same Surgery/Procedure Performed:: Cystoscopy, balloon dilation of right ureter ureteroscopy basket extraction of stone and right stent placement Description of Surgical Findings:: This 43-year-old female who has a history of recurrent kidney stones she presented to the emergency room with a distal stone in the ureter she had a complicated urinary tract infection with obstruction of the distal ureter. She is on antibiotic she was given Rocephin. Plan to take her to surgery today and we will see if it is possible to laser the stones may have to just put a stent in after her infection may prevent me from lasering the stones. Patient was taken back to the operating room after smooth induction of anesthesia she was placed in dorsolithotomy position. The urethrovaginal area prepped and draped in usual sterile fashion, I went into the bladder with a 21 [place] rigid cystourethroscope, the urine was fairly cloudy. I then cannulated the right ureteral orifice with a balloon dilator and balloon dilated the ureter went in with the ureteroscope was able to grab the stone in the distal ureter and extracted. I then put a wire up into the right kidney but given her current situation with an active and infection I was concerned that if I did ureteroscopy under pressure up in her kidney the laser the stones in the kidney that she could have a high chance of getting sepsis or severe infection with the ongoing urinary tract infection so I decided just to place a stent will put her on antibiotics and either bring her back after that her infections cleared to finishing and laser the remaining stones up in her right kidney. Surgeon: Michoacano Keith Type of Anesthesia: General Drains: stent right Estimated Blood Loss (mL): 0 Admit VTE Documentation VTE Present on Admission: No VTE Mechan Device Prophylaxis: SCD's VTE Pharm Prophylaxis ordered?: No
--- NOTE | 2024-05-02 15:40 | PCM.DC ---
Discharge Instructions Diet Discharge Diet: No restrictions Activity Discharge Activity: Return to Normal Activity and May Not Drive (while taking narcotic pain medications.) Dressing / Incision Call your doctor if you observe: Fever of 101 or Higher Follow Up Care Please Follow Up With: Michoacano Keith MD When: Call [phone] for an appointment Test Results: Test results from this visit will be discussed in further detail at your follow-up appointment, if applicable. Discharge Plan Admission Primary Reason for Your Visit: right ureteral calculi Attending Provider: Michoacano Keith Primary Care Provider: Rosy Teague Instructions Print Language: Peruvian Discharge Orders/Prescriptions Prescriptions: New cephalexin 500 mg capsule 500 mg PO TID Qty: 15 0RF oxycodone 5 mg tablet 5 mg PO Q6H PRN (Reason: pain) 3 Days Qty: 20 0RF Continued norgestimate-ethinyl estradiol 0.25-35 mg-mcg tablet 1 tab PO DAILY Patient Comments: TAKE 1 TABLET BY MOUTH ONCE DAILY, SKIP INACTIVE TABLETS nitrofurantoin monohyd/m-cryst [Macrobid] 100 mg capsule 100 mg PO BID 7 Days Qty: 14 0RF Rx Instructions: must administer with a meal/food albuterol sulfate 1 PUFF inhaler 1 puff INHALATION Q6H PRN (Reason: Sob &/Or Wheezing) clobetasol 0.05 % cream 1 applic topical DAILY PRN (Reason: yeast infection) metoprolol tartrate 25 mg tablet 25 mg PO BID Qty: 180 3RF Referrals / Follow Up: Rosy Teague MD [Primary Care Provider] - Michoacano Keith MD [Med Staff - Active Staff] - Disposition Disposition (needs filled in before D/C Order can be placed): Home, Self Care
--- NOTE | 2024-05-02 16:51 | PCM.POSTANE2 ---
Anesthesia Postop Eval I Sum Anesthesia Postop Eval I Summary Anesthesia Postop Eval I Summary: Anesthesia Postop Eval I: Assessment Summary Airway patent Spontaneous unlabored respirations Mental status nausea Vomiting Anesthesia Postop Eval I: Fluid Summary Crystalloid volume administer (ml) Colloids volume administered ( ml) Blood Product volume administered (ml) Total IV fluid infused Anesthesia Postop Eval I: Summary Notes Anesthesia Complication Anesthesia Complication Comment: Post-operative progress note Anesthesia: Postop Eval II Evaluation Mental status: Awake and Calm Pain Level: 1 nausea: No Vomiting: No Complications Anesthesia Complication: No
--- NOTE | 2024-05-03 07:30 | PCM.POSTANE2 ---
Anesthesia Postop Eval I Sum Anesthesia Postop Eval I Summary Anesthesia Postop Eval I Summary: Anesthesia Postop Eval I: Assessment Summary Airway patent Spontaneous unlabored respirations Mental status Awake,Calm 05/02/24 16:51 nausea No 05/02/24 16:51 Vomiting No 05/02/24 16:51 Anesthesia Postop Eval I: Fluid Summary Crystalloid volume administer (ml) Colloids volume administered ( ml) Blood Product volume administered (ml) Total IV fluid infused Anesthesia Postop Eval I: Summary Notes Anesthesia Complication No 05/02/24 16:51 Anesthesia Complication Comment: Post-operative progress note Anesthesia: Postop Eval II Evaluation Mental status: Awake Pain Level: 0 nausea: No Vomiting: No
--- NOTE | 2024-05-03 07:49 | PCM.POST.ANE ---
Anesthesia: Postop Eval I Current Vital Signs Temperature: 98.7 F Pulse Rate: 79 Blood Pressure: 104/78 Respiratory Rate: 20 Pulse Ox: 100 Oxygen Delivery Method: Room Air Assessment Airway patent: Yes Spontaneous unlabored respirations: Yes nausea: No Vomiting: No Anesthesia Complication: No Fluid Hydration Crystalloid volume administer (ml): 1,000 Total IV fluid infused: 1,000 Progress Note Post-operative progress note: retro entry of vitals in from pacu 05/02/24 at 1547 Anesthesia document: Postop Eval 1 completed: Yes
[2024-05-03 07:52] VITALS: BP 104/78; PULSE 79; RESP 20; TEMP 37.1; O2SAT 100
[2024-05-12 14:10] LABS: Ca Oxalate, Dihydrate 100 % (.); Size 6x4 mm (.); Source Ureter (.)
== END 2024-05-02 16:43 | disposition home or self-care (01) ==
LOC: ED 12:23 → SDC 12:29 → AC 13:58
PROVIDERS: Emergency Provider Emergency Medicine; PCP Family Medicine; Visit Provider Urology
PROC: 0TJ98ZZ Inspection of Ureter, Via Natural or Artificial Opening Endoscopic (ICD-10-PCS; CPT 52352; principal; 2024-05-02 14:55)
DX: N13.2 Hydronephrosis with renal and ureteral calculous obstruction (principal); J45.909 Unspecified asthma, uncomplicated; Z79.51 Long term (current) use of inhaled steroids; Z79.899 Other long term (current) drug therapy; Z86.16 Personal history of COVID-19
CPT/HCPCS: 52352; 52332; 00918; 74176; 76000; 80048; 81001; 82360; 84703; 85025; 87086; 88300; 99284; J7030; A4216; C1769; C2617; J2405

== ENCOUNTER → 2024-05-12 | Outpatient (CLI) | payer OTHER, SELFPAY ==
[2024-05-12 12:04] LABS: Bacteria 0 SEEN /hpf (None Seen)
[2024-05-12 12:21] LABS: Color, Urine Yellow (Yellow); Glucose, Dipstick Normal (Normal); Ketone-Dipstick Negative (Negative); Leukocyte Esterase-Dipstick 500 /ul (Negative); Nitrite-Dipstick Negative (Negative); Occult Blood-Urine 250 /ul (Negative); Protein-Dipstick 100 mg/dl (Negative); Specific Gravity, Urine 1.015 (1.002-1.030); Urine Bilirubin Dipstick Negative (Negative); Urine Clarity Sl. Cloudy (Clear); Urine Urobilinogen 1 mg/dl (Normal); Urine pH 6.5 (5.0 - 8.0)
[2024-05-12 12:31] LABS: Squamous Epithelial Cells - UA 0-5 SEEN /hpf (5-10)
[2024-05-12 12:32] LABS: White Blood Cells 25-50 SEEN /hpf (0-5)
[2024-05-12 12:33] LABS: Red Blood Cells-Urine 5-10 SEEN /hpf (0-5)
[2024-05-12 12:34] LABS: Mucous, Urine 1+ /hpf (<or=2+)
== END | disposition home or self-care (01) ==
LOC: LAB 11:53
PROVIDERS: PCP Family Medicine; Referring Provider Urology; Visit Provider Urology
DX: R30.0 Dysuria (principal)
CPT/HCPCS: 81001

== ENCOUNTER → 2024-05-16 | Outpatient (CLI) | payer OTHER, SELFPAY ==
--- NOTE | 2024-05-16 14:15 | MRI_ITS ---
We are attempting to reach an attending provider to discuss findings. An addendum with communication details will be sent when the communication is complete. STUDY: MRI BRAIN WITH AND WITHOUT CONTRAST REASON FOR EXAM: Female, 43 years old. LEFT HOMONYMOUS DEFECT TECHNIQUE: Standardized multiplanar fat and water weighted pulse sequences were obtained. 13ML IV CLARISCAN was administered for the contrast portion of the examination. COMPARISON: MR brain September 26, 2009 FINDINGS: Normal size of the ventricles and extra-axial spaces for the patient''s age. Normal white matter tracts of the supratentorial brain. Gyriform Restricted diffusion noted mesial aspect right occipital cortex with associated enhancement. Normal bilateral basal ganglia. Normal thalami. There is no extra-axial fluid accumulation. Normal flow voids within the major intracranial circulation suggesting patency by spin echo criteria. Normal venous enhancement. Small focus of decreased enhancement noted in the right lateral and possibly the left lateral pituitary gland measuring 5 and 3 mm respectively. The 5 mm lesion appears stable. The 3 mm lesion may be new. Normal sella turcica,, infundibular stalk, optic chiasm and hypothalamus. Normal tectal plate and pineal gland. Normal midbrain, bethany and medulla. Normal cerebellum. Normal basal cisterns. Normal bilateral temporal bones. Normal bilateral internal auditory canals. No demonstrated orbital abnormality, within the constraints of a routine brain study. Normal visualized paranasal sinuses. Normal calvarium and skull base. Normal visualized soft tissue structures. Normal visualized upper cervical spine. 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 Possible microadenomas as above. Follow-up dedicated dynamic pituitary imaging may be helpful if clinically warranted. Electronically Signed: Eitan Lugo MD at 19:24 EDT ,
== END | disposition home or self-care (01) ==
LOC: MRI 14:00
PROVIDERS: PCP Family Medicine; Referring Provider Ophthalmology; Visit Provider Ophthalmology
DX: H53.462 Homonymous bilateral field defects, left side (principal)
CPT/HCPCS: 70553; A9575

== ENCOUNTER 2024-05-17 09:43 | Day surgery (SDC) | payer OTHER, SELFPAY ==
[2024-05-17] VITALS (8 sets, daily range): BP systolic 121–141; BP diastolic 76–92; PULSE 70–91; RESP 16–17; TEMP 36.2–36.6; O2SAT 95–100; BMI 23.1
[2024-05-17 09:58] LABS: Internal QC Validated? YES +Cl - CLEAR BKGD; Pregnancy, Urine Negative Negative
--- NOTE | 2024-05-17 11:30 | PCM.HP.STD ---
HPI - General HPI Narrative MAHSA MORE, is a 43 F who presents to laser stones in the right kidney she currently has a stent on the right side [facility] Medical History Back pain Migraine headache Wears contact lenses Wears glasses Anxiety MTHFR mutation Non-smoker History of stress test History of echocardiogram Cardiology follow-up encounter History of irregular heartbeat COVID (10/2021) AVNRT (AV linus re-entry tachycardia) Thrombocytopenia Pituitary adenoma Paroxysmal supraventricular tachycardia Asthma Home Medications ?Medication ?Instructions ?Recorded ?Last Taken ?Type albuterol sulfate 90 mcg/actuation 1 puff inhalation Q6H PRN Sob &/Or 09/24/20 Unknown History aerosol inhaler Wheezing norgestimate 0.25 mg-ethinyl 1 tab PO DAILY 01/08/22 05/16/24 History estradiol 35 mcg tablet metoprolol tartrate 25 mg tablet 25 mg PO BID #180 tabs 03/16/24 05/17/24 Rx clobetasol 0.05 % topical cream 1 applic topical DAILY PRN yeast 05/02/24 Unknown History infection Allergy/AdvReac Type Severity Reaction Status Date / Time ciprofloxacin (From Cipro) AdvReac PT UNSURE Verified 05/17/24 10:12 OF REACTION Family History Other Adopted Surgical History History of cystoscopy History of colonoscopy (05/22/22) History of radiofrequency ablation procedure for cardiac arrhythmia (04/30/09) H/O lumpectomy History of lithotripsy Social History Smoking Status: Never smoker alcohol intake: never Vital Signs Vital Signs Vital Signs: 05/17/24 10:13 05/17/24 10:13 Temperature 97.8 F Temperature Source Temporal Pulse Rate 91 Respiratory Rate 17 Respiratory Pattern Normal Blood Pressure 121/89 H Blood Pressure Mean 99 Blood Pressure Source Monitor Blood Pressure Position Semi-Fowlers Blood Pressure Location Right Arm Pulse Ox 99 Oxygen Delivery Method Room Air Weight Weight: 65 kg Body Mass Index (BMI) 23.1 Results Lab / [facility] Labs: Laboratory Results - last 24 hr 05/17/24 09:50: Urine Test Negative
--- NOTE | 2024-05-17 11:36 | PRE.ANES_ITS ---
ASA Classification* ASA Classification ASA Classification: 3 Assessment & Plan Anesthesia* Anesthesia Assessment Anesthesia Assessment: Discussed sedation and/or anesthesia options, risks, benefits, and alternatives with patient/parents/legal guardian/POA. Questions invited. The patient/parents/legal guardian/POA seems to understand and agrees to proceed with anesthesia plan. Reviewed the physical assessment, medical history, allergy history and patient home medications list prior to surgery/procedure/anesthetic and documented any changes. Performed airway and anesthesia risk assessments. Anesthesia Type Anesthesia Type: General History Source History Obtained from:: Patient and Chart Anesthesia Focused Assessment* Temperature: 97.8 F Pulse Rate: 91 Blood Pressure: 121/89 Respiratory Rate: 17 Pulse Ox: 99 Oxygen Delivery Method: Room Air Airway Assessment Mouth opens: >3 cm Mallampati Score: II Teeth Condition: Intact Neck Range of motion (ROM): Full ROM Focused Labs Anesthesia Preop lab: CBC WBC 10.6 K/mm3 (4.4-11.0) 05/02/24 10:05 RBC 4.71 M/mm3 (4.2-5.4) 05/02/24 10:05 Hgb 14.4 g/dL (12.0-15.0) 05/02/24 10:05 Hct 42.6 % (37-47) 05/02/24 10:05 Plt Count 213 K/mm3 (150-450) 05/02/24 10:05 CHEMISTRY Potassium 3.3 mmol/L (3.5-5.1) L 05/02/24 10:05 Sodium 139 mmol/L (136-145) 05/02/24 10:05 Magnesium 2.1 mg/dL (1.6-2.6) 02/09/18 11:02 BUN 9 mg/dL (7-18) 05/02/24 10:05 Creatinine 0.88 mg/dL (0.55-1.02) 05/02/24 10:05 Glucose 130 mg/dL (74-106) H 05/02/24 10:05 TSH 0.75 uIU/mL (0.358-3.74) 02/09/18 11:02 COAG PT 14.3 SECONDS (11.7-14.9) 12/14/14 15:56 HCG, Quant 1109 mIU/mL (<9 non-preg) H 12/14/14 15:56 Urine Test Negative Negative 05/17/24 09:50 Pre-Assessment Diagnosis/Proposed Procedure Planned Operative Procedure(s): CYSTO URETEROSCOPY STENT RIGHT Anesthesia History Anesthesia History - maxillofacial prosthodontist: Anesthesia History - maxillofacial prosthodontist Hx Hospitalization No 05/16/24 13:12 Any Problems With Anesthesia No 05/16/24 13:12 Cholinesterase deficiency No 05/16/24 13:12 You/Your Family Experience No 05/16/24 13:12 fever (hyperthermia) with Relationship Recent Exposure to Contagious No 05/17/24 10:13 Disease Does patient have nerve No 05/16/24 13:12 stimulator Patient instructed to have device shut off --Does patient have Pacemaker No 05/17/24 10:13 or ICD? When Was Last Pacemaker Check QUESTION #4 FULL TEXT: You/Your Family Experience fever (hyperthermia) with Anesthesia Last Oral Intake Last Oral intake: Last Oral Intake NPO since 09:00 05/17/24 10:13 Meds taken in AM with sips of Yes 05/17/24 10:13 water? Meds patient instructed to metoprolol 05/17/24 10:13 take am of surgery PONV PONV - maxillofacial prosthodontist: PONV - maxillofacial prosthodontist Female Yes 05/16/24 13:12 HX of Motion Sickness Yes 05/16/24 13:12 HX of N/V After Surgery No 05/16/24 13:12 Non-Smoker Yes 05/16/24 13:12 Duration of Surgery greater Yes 05/16/24 13:12 than 60 minutes Number of Risk Factors 4 05/16/24 13:12 PONV Score Severe Risk 05/16/24 13:12 Height & Weight Height & Weight: Anesthesia: Height & Weight Height 5 ft 6 in 05/17/24 10:13 Weight: 65 kg 05/17/24 10:13 Body Mass Index (BMI) 23.1 05/17/24 10:13 Respiratory Assessment Respiratory Assessment - maxillofacial prosthodontist: Respiratory Tract Infection Hx - maxillofacial prosthodontist Hx Respiratory Tract Infection No 05/16/24 13:12 STOP Sleep Apnea STOP Sleep Apnea - maxillofacial prosthodontist: STOP Sleep Apnea - maxillofacial prosthodontist Hx Hypertension No 05/16/24 13:12 Hx Sleep Apnea No 05/16/24 13:12 CPAP No 05/22/22 10:59 BIPAP No 09/24/20 11:17 Do you snore loudly (louder No 05/16/24 13:12 than talking or can be heard Do you often feel tired/ No 05/16/24 13:12 fatigued/ sleepy during daytime? Has anyone observed you stop No 05/16/24 13:12 breathing during sleep? STOP Results Negative 05/16/24 13:12 QUESTION #5 FULL TEXT : Do you snore loudly (louder than talking or can be heard through closed doors)? 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 Specify any problems Hx of Preganancy in last 3 No 05/16/24 13:12 Months Nurse Filling Out Transfusion DSCHRIBER 05/16/24 13:12 & Questions: Date: 05/16/24 05/16/24 13:12 Time: 13:13 05/16/24 13:12 Patient unable to answer at this time (ie. confused, unrespo /Reproduction History /Reproductive History - maxillofacial prosthodontist: /Reproductive Hx- maxillofacial prosthodontist Hx Now No 05/16/24 13:12 Gestational Age (in weeks): EDC: Hx Hx Para Hx Section SAB No 05/16/24 13:12 Active Medications Active Medications: Current Medications Generic Name Dose Route Start Last Admin Trade Name Freq PRN Reason Stop Dose Admin Cefazolin Sodium 2 gm/ N/A 20 mls @ 400 mls/hr 05/17/24 14:30 IV 05/17/24 14:32 PREOP ONE Lactated Ringer's 1,000 mls @ 15 mls/hr 05/17/24 10:15 IV 05/22/24 23:34 .Q48H [facility] Protocol PFSH Medical History Back pain Migraine headache Wears contact lenses Wears glasses Anxiety MTHFR mutation Non-smoker History of stress test History of echocardiogram Cardiology follow-up encounter History of irregular heartbeat COVID (10/2021) AVNRT (AV linus re-entry tachycardia) Thrombocytopenia Pituitary adenoma Paroxysmal supraventricular tachycardia Asthma Home Medications ?Medication ?Instructions ?Recorded ?Last Taken ?Type albuterol sulfate 90 mcg/actuation 1 puff inhalation Q6H PRN Sob &/Or 09/24/20 Unknown History aerosol inhaler Wheezing norgestimate 0.25 mg-ethinyl 1 tab PO DAILY 01/08/22 05/16/24 History estradiol 35 mcg tablet metoprolol tartrate 25 mg tablet 25 mg PO BID #180 tabs 03/16/24 05/17/24 Rx clobetasol 0.05 % topical cream 1 applic topical DAILY PRN yeast 05/02/24 Unknown History infection Allergy/AdvReac Type Severity Reaction Status Date / Time ciprofloxacin (From Cipro) AdvReac PT UNSURE Verified 05/17/24 10:12 OF REACTION Family History Other Adopted Surgical History History of cystoscopy History of colonoscopy (05/22/22) History of radiofrequency ablation procedure for cardiac arrhythmia (04/30/09) H/O lumpectomy History of lithotripsy Social History Smoking Status: Never smoker alcohol intake: never Neurological Conditions Comments:: 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 She had a similar procedure cystoscopy stone extraction on May 02 with no problems. Family History Family History Other Adopted Review of Systems (Anesthesia) ROS Narrative System reviewed and no additional complaints, except as documented.
--- NOTE | 2024-05-17 12:50 | DCINST_ITS ---
Discharge Instructions Diet Discharge Diet: No restrictions Activity Discharge Activity: Return to Normal Activity and May Not Drive (while taking narcotic pain medications.) Dressing / Incision Call your doctor if you observe: Fever of 101 or Higher Follow Up Care Please Follow Up With: Michoacano Keith MD When: Call [phone] for an appointment Test Results: Test results from this visit will be discussed in further detail at your follow- up appointment, if applicable. Discharge Plan Admission Attending Provider: Michoacano Keith Primary Care Provider: Rosy Teague Instructions Print Language: Honduran Discharge Orders/Prescriptions Prescriptions: No Action norgestimate-ethinyl estradiol 0.25-35 mg-mcg tablet 1 tab PO DAILY Patient Comments: TAKE 1 TABLET BY MOUTH ONCE DAILY, SKIP INACTIVE TABLETS albuterol sulfate 1 PUFF inhaler 1 puff INHALATION Q6H PRN (Reason: Sob &/Or Wheezing) clobetasol 0.05 % cream 1 applic topical DAILY PRN (Reason: yeast infection) metoprolol tartrate 25 mg tablet 25 mg PO BID Qty: 180 3RF Referrals / Follow Up: Rosy Teague MD [Primary Care Provider] - Disposition Disposition (needs filled in before D/C Order can be placed): Home, Self Care
[2024-05-17] MEDS: Cefazolin 2 GM in Syringe IV (12:55)
--- NOTE | 2024-05-17 14:04 | PCM.OPRPT ---
Report of Operation Date of Procedure: 05/17/24 Pre-Operative Diagnosis: Right multiple large renal calculi Post-Operative Diagnosis: The same Surgery/Procedure Performed:: Cystoscopy, right ureteroscopy laser lithotripsy and right stent placement, retrograde pyelogram right side Description of Surgical Findings:: Indication 43-year-old female recently had a stone we removed but a stent and she had multiple stones up in the right kidney as well significant burden of stones were today working to proceed with laser lithotripsy of the stone fragments and stent placement Patient was taken back to the operating room after smooth induction of anesthesia by ROSIE Echeverria she was placed in dorsolithotomy position, went into the bladder with a cystoscope grabbed the stent pulled out the meatus put a wire up to the stent and then over the wire went over the flexible ureteroscope once I got it into the kidney, had multiple large stones in the kidney and one by one the stones was lasered with the thulium laser. Took about 20 minutes to laser all the stones completely and once I lasered the stones completely small little pieces some of the stones are kind of stuck in the parenchyma especially the upper pole stone and some of the stones were free-floating stones in the renal collecting system all the stones were lasered completely and look like just some small fragments are stuck in the parenchyma but mostly stones were lasered completely and then I worked my way down the ureter put a wire up on that side were performed a retrograde pyelogram delineate the anatomy and then left the stent on the right side. Once the stent was in good position I pulled the wire the stent coil in the kidney bladder good position. Patient will follow-up in 1 week for cystoscopy stent removal in the office. Surgeon: Michoacano Keith Type of Anesthesia: General Anesthesiologist: Daniel De La Cruz Drains: right stent 6 x 26cm Estimated Blood Loss (mL): 0 Procedure Start Time: 12:55 Procedure Stop Time: 14:08 Admit VTE Documentation VTE Present on Admission: No VTE Mechan Device Prophylaxis: SCD's VTE Pharm Prophylaxis ordered?: No
--- NOTE | 2024-05-17 14:52 | PCM.POST.ANE ---
Anesthesia: Postop Eval I Current Vital Signs Temperature: 97.1 F Pulse Rate: 84 Blood Pressure: 141/80 Respiratory Rate: 16 Pulse Ox: 99 Oxygen Delivery Method: Room Air Assessment Airway patent: Yes Spontaneous unlabored respirations: Yes Mental status: Awake and Calm nausea: No Vomiting: No Anesthesia Complication: No Fluid Hydration Crystalloid volume administer (ml): 1,000 Total IV fluid infused: 1,000 Progress Note Anesthesia document: Postop Eval 1 completed: Yes
[2024-05-17] MEDS: Acetaminophen 325 MG Tablet 650 MG PO (15:10)
--- NOTE | 2024-05-18 01:23 | POSTOPAN2_ITS ---
Anesthesia Postop Eval I Sum Postop Eval Completion status Anesthesia document: Postop Eval 1 completed: Yes Anesthesia Postop Eval I Summary Anesthesia Postop Eval I Summary: Anesthesia Postop Eval I: Assessment Summary Airway patent Yes 05/17/24 14:53 CRUSHER MACHINE [email or web address] Spontaneous unlabored Yes 05/17/24 14:53 CRUSHER MACHINE [email or web address] respirations Mental status Awake,Calm 05/17/24 14:53 CRUSHER MACHINE [email or web address] nausea No 05/17/24 14:53 CRUSHER MACHINE [email or web address] Vomiting No 05/17/24 14:53 CRUSHER MACHINE [email or web address] Anesthesia Postop Eval I: Fluid Summary Crystalloid volume administer 1,000 05/17/24 14:53 CRUSHER MACHINE [email or web address] (ml) Colloids volume administered ( ml) Blood Product volume administered (ml) Total IV fluid infused 1,000 05/17/24 14:53 CRUSHER MACHINE [email or web address] Anesthesia Postop Eval I: Summary Notes Anesthesia Complication No 05/17/24 14:53 CRUSHER MACHINE [email or web address] Anesthesia Complication Comment: Post-operative progress note Anesthesia: Postop Eval II Evaluation Mental status: Awake and Calm Pain Level: 0 nausea: No Vomiting: No Complications Anesthesia Complication: No
--- NOTE | 2024-05-18 01:23 | PCM.POSTANE2 ---
Anesthesia Postop Eval I Sum Postop Eval Completion status Anesthesia document: Postop Eval 1 completed: Yes Anesthesia Postop Eval I Summary Anesthesia Postop Eval I Summary: Anesthesia Postop Eval I: Assessment Summary Airway patent Yes 05/17/24 14:53 DIRECTOR OF [email or web address] Spontaneous unlabored Yes 05/17/24 14:53 DIRECTOR OF [email or web address] respirations Mental status Awake,Calm 05/17/24 14:53 DIRECTOR OF [email or web address] nausea No 05/17/24 14:53 DIRECTOR OF [email or web address] Vomiting No 05/17/24 14:53 DIRECTOR OF [email or web address] Anesthesia Postop Eval I: Fluid Summary Crystalloid volume administer 1,000 05/17/24 14:53 DIRECTOR OF INCOME [email or web address] (ml) Colloids volume administered ( ml) Blood Product volume administered (ml) Total IV fluid infused 1,000 05/17/24 14:53 DIRECTOR OF [email or web address] Anesthesia Postop Eval I: Summary Notes Anesthesia Complication No 05/17/24 14:53 DIRECTOR OF [email or web address] Anesthesia Complication Comment: Post-operative progress note Anesthesia: Postop Eval II Evaluation Mental status: Awake and Calm Pain Level: 0 nausea: No Vomiting: No Complications Anesthesia Complication: No
== END 2024-05-17 15:19 | disposition home or self-care (01) ==
LOC: SDC 09:44 → AC 09:46
PROVIDERS: Anesthesiology; PCP Family Medicine; Referring Provider Urology; Visit Provider Urology
PROC: 0TJ98ZZ Inspection of Ureter, Via Natural or Artificial Opening Endoscopic (ICD-10-PCS; CPT 52352; principal; 2024-05-17 11:40)
DX: N20.0 Calculus of kidney (principal); J45.909 Unspecified asthma, uncomplicated; Z86.16 Personal history of COVID-19; Z79.51 Long term (current) use of inhaled steroids; Z79.899 Other long term (current) drug therapy
CPT/HCPCS: 52356; 00873; 76000; 81025; J7120; A4216; C1769; C2617; J2405

== ENCOUNTER 2024-05-17 19:49 | Emergency (ER) | payer OTHER, SELFPAY ==
[2024-05-17 19:50] VITALS: BP 141/87; PULSE 77; RESP 18; TEMP 36.9; O2SAT 97; BMI 24.8
--- NOTE | 2024-05-17 20:12 | EDS_ITS ---
HPI HPI - GI History of Present Illness Chief Complaint: Flank Pain Informant: patient Abdominal Pain/Flank Pain Onset: Today and Hours Context: Gradual Onset Timing: Continuous Quality: Sharp and Stabbing Location: Right Flank Current Severity: Moderate Maximum Severity: Severe Worsened by: Nothing Relieved by: Nothing Nausea/Vomiting/Emesis GI Symptom: Positive for Vomiting Severity: Mild Diarrhea/Melena/Hematochezia GI Symptom: Negative for Diarrhea, Melena or Hematochezia Associated Symptoms Associated Symptoms: Negative for Dysuria, Frequency, Hematuria or Urgency Narrative Narrative: 43-year-old female history of kidney stones, SVT and prior stroke. Today was at the hospital had laser of 2 kidney stones and a stent placed on the right. She had a recent 5 mm stone with obstruction. She sees Dr. Barber Keith. Around 4:00 today she started having increasing right flank pain with nausea vomiting. No fever. Prior similar symptoms: Yes Recent Illness/Hospitalization: Yes PFSH PFSH Medical History Back pain Migraine headache Wears contact lenses Wears glasses Anxiety MTHFR mutation Non-smoker History of stress test History of echocardiogram Cardiology follow-up encounter History of irregular heartbeat COVID (10/2021) AVNRT (AV linus re-entry tachycardia) Thrombocytopenia Pituitary adenoma Paroxysmal supraventricular tachycardia Asthma Home Medications ?Medication ?Instructions ?Recorded ?Last Taken ?Type albuterol sulfate 90 mcg/actuation 1 puff inhalation Q6H PRN Sob &/Or 09/24/20 Unknown History aerosol inhaler Wheezing norgestimate 0.25 mg-ethinyl 1 tab PO DAILY 01/08/22 05/16/24 History estradiol 35 mcg tablet metoprolol tartrate 25 mg tablet 25 mg PO BID #180 tabs 03/16/24 05/17/24 Rx clobetasol 0.05 % topical cream 1 applic topical DAILY PRN yeast 05/02/24 Unknown History infection ketorolac 10 mg tablet 10 mg PO Q6H PRN pain #10 tabs 05/17/24 Unknown Rx ondansetron 4 mg disintegrating 4 mg PO Q6H PRN nausea and 05/17/24 Unknown Rx tablet vomiting #10 tabs ondansetron 4 mg disintegrating 4 mg PO Q6H PRN nausea and 05/17/24 Unknown Rx tablet vomiting #7 tabs oxycodone 5 mg tablet 10 mg (2 x 5 mg) PO Q6H PRN pain 3 05/17/24 Unknown Rx days #20 tabs phenazopyridine 100 mg tablet 100 mg PO TID PRN pain #14 tabs 05/17/24 Unknown Rx (Pyridium) sulfamethoxazole 800 1 tab PO BID #10 tabs 05/17/24 Unknown Rx mg-trimethoprim 160 mg tablet (Bactrim DS) tamsulosin 0.4 mg capsule 0.4 mg PO DAILY #10 caps 05/17/24 Unknown Rx Allergy/AdvReac Type Severity Reaction Status Date / Time ciprofloxacin (From Cipro) AdvReac PT UNSURE Verified 05/17/24 19:54 OF REACTION Family History Other Adopted Surgical History History of cystoscopy History of colonoscopy (05/22/22) History of radiofrequency ablation procedure for cardiac arrhythmia (04/30/09) H/O lumpectomy History of lithotripsy Social History Smoking Status: Never smoker alcohol intake: never ROS ROS ED ROS Narrative Right flank pain. Nausea vomiting. Constitutional Constitutional ED: Denies chills or fever(s) ENT ENT ED: Denies ear pain Cardiovascular Cardiovascular: Denies chest pain Respiratory/Chest Respiratory/Chest: Denies cough Gastrointestinal Gastrointestinal: Reports nausea, vomiting and other Details: Right flank pain. ; Denies abdominal pain Genitourinary Genitourinary ED: Denies dysuria Musculoskeletal Musculoskeletal: Denies arthralgias Integumentary Denies abscess Neurologic Neurologic: Denies headache(s) Psychiatric Psychiatric: Denies anxiety Endocrine Endocrinology: Denies polydipsia Hematologic/Lymphatic Hematologic/Lymphatic: Denies easy bleeding Allergic/Immunologic Allergic/Immunologic ED: Denies mouth swelling EXAM Physical Exam Narrative Exam Narrative: Well-appearing 43-year-old female. Vital signs stable afebrile. She was brought in by squad squad to give her fentanyl prior to arrival. H EENT exam unremarkable. Neck nontender. Lungs clear to auscultation bilaterally. Heart regular rate and rhythm no murmur. Chest wall and ribs nontender. Abdomen soft nontender. No peritoneal signs. Back no reproducible pain no flank pain. She is having pain there is nothing reproducible. Moving all 4 extremities. Nontender no edema. She is awake and alert. Answer questions following commands. Const Vital Signs: 05/17/24 19:50 Temperature 98.5 F Temperature Source Oral Pulse Rate 77 Respiratory Rate 18 Blood Pressure 141/87 H Blood Pressure Mean 105 Pulse Ox 97 Oxygen Delivery Method Room Air Positive well nourished and well developed; Negative for obese, cachectic, contractures or unkempt General Appearance ED: well developed and NAD; Negative for unkempt, cachectic, contractures or pallor Nutritional Appearance: Negative for cachectic or obese HEENT Reports moist mucous membranes atraumatic Eyes PERRL and EOMs intact bilaterally Neck no lymphadenopathy, supple and no JVD Resp normal respiratory effort and clear to auscultation bilaterally Auscultation: Negative for rales, rhonchi or wheezes Cardio regular rate, regular rhythm, S1 normal heart sound, S2 normal heart sound and no murmurs GI non-tender, non-distended and no masses Palpation: soft; Negative for tender, guarding or rebound tenderness present Back/Spine no CVA tenderness General Back: Negative for CVA tenderness Cervical Spine: Negative for cervical spine tenderness Thoracic Spine / Upper Back: Negative for thoracic spinal tenderness Lumbar Spine / Lower Back: Negative for lumbar spinal tenderness Extremity full ROM General Extremety ED: Negative for edema or tenderness General Extremity: Negative for edema Neuro moves all extremities Sensorium / Orientation: alert and oriented to person Motor Exam: strength 5/5 throughout Psych mental status grossly normal and thought process normal Appearance: Negative for unkempt Attitude: No agitated Mood & Affect: Negative for depressed, anxious or tearful Skin no wounds General Skin Exam: Negative for jaundice or pallor Lesions: no lesions Rashes: no rashes Trauma: Negative for abrasion Nails: Negative for discolored MDM MDM MDM Narrative Medical decision making narrative: 43-year-old right flank pain after having stent placed today and laser of 2 stones in her kidney. Labs are being obtained. She will receive morphine for continued pain and Zofran and IV Toradol. Repeat exam patient thought she was having palpitations. Her pulse was normal. Her repeat cardiac exam was normal. I did obtain an EKG was a sinus rhythm rate of 92 with some PACs. Repeat exam patient is doing much better at 10:10 PM. She is comfortable. She is feeling a lot better. I spoke to Dr. Ajay Hall urologist. He is comfortable with her being discharged home. We went over her lab test. She will be written for [place] for home. He had already called her in Toradol and narcotic pain medication. Patient and spouse are comfortable with the plan. Lab Data Attestation: I reviewed the patient's lab results. Lab results narrative: CBC shows a white count of 12.9. H&H 14 and 41. Platelets 221. Electrolytes show sodium 134. Gap 8. BUN and creatinine 12 and 0.9. Glucose 145. UA shows 250 occult blood. Greater than 100 white cells. Great 100 red cells. 2+ bacteria. No nitrites. Labs: Laboratory Results - last 24 hr 05/17/24 05/17/24 20:25 20:45 WBC 12.9 H RBC 4.60 Hgb 14.3 Hct 41.3 MCV 89.8 MCH 31.1 MCHC 34.6 RDW Std Deviation 38.8 RDW Coeff of Jerrell 11.9 Plt Count 221 MPV 10.2 Immature Gran % (Auto) 0.500 Neut % (Auto) 94.5 H Lymph % (Auto) 3.9 L Dolores % (Auto) 0.9 Eos % (Auto) 0.0 Baso % (Auto) 0.2 Absolute Neuts (auto) 12.2 H Absolute Lymphs (auto) 0.51 L Nucleated RBC % 0 Sodium 134 L Potassium 4.1 Chloride 101 Carbon Dioxide 25.0 Anion Gap 8 BUN 12 Creatinine 0.92 Estim Creat Clear Calc 73.05 Est GFR (MDRD) Af Amer 85 Est GFR (MDRD) Non-Af 70 BUN/Creatinine Ratio 13.1 Glucose 145 H Calcium 9.2 Urine Color Yellow Urine Clarity Turbid Urine pH 6.0 Ur Specific [place] 1.025 Urine Protein 100 H Urine Glucose (UA) Normal Urine Ketones Negative Urine Occult Blood 250 H Urine Nitrite Negative Urine Bilirubin Negative Urine Urobilinogen Normal Ur Leukocyte Esterase 500 H Urine RBC > 100 SEEN Urine WBC >100 SEEN Ur Squamous Epith Cells 0 SEEN Ur Transition Epith Cell 0-5 SEEN Ur Renal Epithelial Cell 0-5 SEEN Urine Bacteria 2+ Urine Mucus RARE Rhythm Strip Rhythm Strip: Sinus Rhythm Rate: 92 Ectopy: PAC(s) EKG Initial EKG: Attestation: I personally reviewed and interpreted this EKG as follows: Interpretation: Sinus Rhythm and No Acute Injury Pattern Comments: Normal sinus rhythm rate 92. PACs. Inverted T wave in V inferiorly. Discharge Plan Triage Chief Complaint: Flank Pain ED Provider: Jose Iqbal Dx/Rx/DC Orders Clinical Impression: Acute right flank pain, History of kidney stones, History of ureter stent Instructions: ED Kidney Stone with Pain Prescriptions: New ondansetron 4 mg tablet,disintegrating 4 mg PO Q6H PRN (Reason: nausea and vomiting) Qty: 7 0RF No Action norgestimate-ethinyl estradiol 0.25-35 mg-mcg tablet 1 tab PO DAILY Patient Comments: TAKE 1 TABLET BY MOUTH ONCE DAILY, SKIP INACTIVE TABLETS albuterol sulfate 1 PUFF inhaler 1 puff INHALATION Q6H PRN (Reason: Sob &/Or Wheezing) clobetasol 0.05 % cream 1 applic topical DAILY PRN (Reason: yeast infection) sulfamethoxazole-trimethoprim [Bactrim DS] 800-160 mg tablet 1 tab PO BID Qty: 10 0RF tamsulosin 0.4 mg capsule 0.4 mg PO DAILY Qty: 10 0RF phenazopyridine [Pyridium] 100 mg tablet 100 mg PO TID PRN (Reason: pain) Qty: 14 0RF oxycodone 5 mg tablet 10 mg PO Q6H PRN (Reason: pain) 3 Days Qty: 20 0RF ketorolac 10 mg tablet 10 mg PO Q6H PRN (Reason: pain) Qty: 10 0RF Rx Instructions: maximum total duration of 5 days from all oral, intranasal, or parenteral formulations ondansetron 4 mg tablet,disintegrating 4 mg PO Q6H PRN (Reason: nausea and vomiting) Qty: 10 0RF metoprolol tartrate 25 mg tablet 25 mg PO BID Qty: 180 3RF Primary Care Provider: Rosy Teague Referrals: Rosy Teague MD [Primary Care Provider] - Michoacano Keith MD [Med Staff - Active Staff] - As soon as possible Activity Restrictions/Additional Instructions: Plenty of fluids and rest. Zofran as needed for nausea. Dr. Keith called you in Toradol and I believe a narcotic pain medication and I think was oxycodone. Use those for pain. Follow-up with his office tomorrow to let them know how you are feeling. Return if you are feeling a lot worse. Print Language: Turkmen Disposition Disposition: Home, Self Care
[2024-05-17] MEDS: morphine 8 MG/ML Syringe IV (20:16)
[2024-05-17] MEDS: Ondansetron 4 MG/2 ML Vial IV (20:16)
[2024-05-17] MEDS: Ketorolac 15 MG/ML Vial IV (20:16)
[2024-05-17 20:33] LABS: Absolute Lymphocyte Count 0.51 X10^3/uL (0.83-4.51); Absolute Neutrophil Count 12.2 X10^3/uL (2.0-7.7); Basophil# 0.02 X10^3/uL; Basophil% 0.2 % (0-1); Hematocrit 41.3 % (37-47); Hemoglobin 14.3 g/dL (12.0-15.0); Lymphocyte # 0.51 X10^3/ul (0.83-4.51); Lymphocyte % 3.9 % (19-41); Mean Corp Hgb Conc 34.6 g/dL (32-36); Mean Corpuscular Hgb 31.1 pg (27.0-32.0); Mean Corpuscular Volume 89.8 fL (81-99); Mean Platelet Vol. 10.2 fl (6.2-12.0); Monocyte# 0.11 X10^3/uL; Monocyte% 0.9 % (0-10); NRBC Flagged by Analyzer 0 % (0-5); Neutrophil # 12.22 X10^3/uL (2.7-7.7); Neutrophil % 94.5 % (47-70); POSITIVE DIFFERENTIAL YES; Platelet Count 221 K/mm3 (150-450); RBC Distribution Width CV 11.9 % (11.6-14.6); RBC Distribution Width SD 38.8 fl (35.1-43.9); White Blood Count 12.9 K/mm3 (4.4-11.0)
[2024-05-17 20:48] LABS: Anion Gap 8 (5-15); BUN 12 mg/dL (7-18); BUN/Creat Ratio 13.1 RATIO (10-20); Calcium,Total 9.2 mg/dL (8.5-10.1); Chloride 101 mmol/L (98-107); Creatinine, Serum 0.92 mg/dL (0.55-1.02); EST Glomerular Filtration Rate 70 mL/min (>60); Est Glom Filt Rate - Afr Amer 85 mL/min (>60); Estimated Creatinine Clearance 73.05 ml/min; Glucose 145 mg/dL (74-106); Potassium 4.1 mmol/L (3.5-5.1); Sodium Level 134 mmol/L (136-145)
[2024-05-17 21:03] LABS: Squamous Epithelial Cells - UA 0 SEEN /hpf (5-10)
[2024-05-17 21:11] LABS: Color, Urine Yellow (Yellow); Glucose, Dipstick Normal (Normal); Ketone-Dipstick Negative (Negative); Leukocyte Esterase-Dipstick 500 /ul (Negative); Nitrite-Dipstick Negative (Negative); Occult Blood-Urine 250 /ul (Negative); Protein-Dipstick 100 mg/dl (Negative); Specific Gravity, Urine 1.025 (1.002-1.030); Urine Bilirubin Dipstick Negative (Negative); Urine Clarity Turbid (Clear); Urine Urobilinogen Normal (Normal)
[2024-05-17 21:22] LABS: Bacteria 2+ /hpf (None Seen); Red Blood Cells-Urine > 100 SEEN /hpf (0-5); White Blood Cells >100 SEEN /hpf (0-5)
[2024-05-17 21:24] LABS: Renal Epithelial Cells 0-5 SEEN /hpf (0-5); Transitional Epithelial - Ur 0-5 SEEN /hpf (0-5)
--- NOTE | 2024-05-17 21:24 | EKG12_ITS ---
Test Reason : Blood Pressure : / mmHG Vent. Rate : 092 BPM Atrial Rate : 098 BPM P-R Int : 128 ms QRS Dur : 092 ms QT Int : 372 ms P-R-T Axes : 057 056 -11 degrees QTc Int : 460 ms Sinus rhythm with Premature atrial complexes T wave abnormality, consider inferior ischemia Abnormal ECG Confirmed by Balbir Levy ([id number]), editor index SAMANTHA RODRIGEZ ([id number]) on 05/19/2024 1:31:06 PM Referred By: Confirmed By:Balbir Levy
[2024-05-17 21:25] LABS: Mucous, Urine RARE /hpf (<or=2+)
[2024-05-17 21:49] VITALS: BP 118/73; PULSE 72; RESP 16; O2SAT 98
[2024-05-17 23:59] VITALS: BP 119/77; PULSE 74; RESP 16; TEMP 36.9; O2SAT 98
== END 2024-05-18 | disposition home or self-care (01) ==
PROVIDERS: Emergency Provider Emergency Medicine; PCP Family Medicine; Visit Provider Emergency Medicine
DX: R10.9 Unspecified abdominal pain (principal); J45.909 Unspecified asthma, uncomplicated; Z86.73 Personal history of transient ischemic attack (TIA), and cerebral infarction without residual deficits; Z86.16 Personal history of COVID-19
CPT/HCPCS: 80048; 81001; 85025; 93005; 96374; 96375; 99282; A4216; J2405

== ENCOUNTER → 2024-06-03 | Outpatient (CLI) | payer OTHER, SELFPAY ==
[2024-06-03 10:14] LABS: Hemoglobin A1c 5.1 % (3.8-5.6)
[2024-06-03 10:20] LABS: ALB/GLOB Ratio 0.9 RATIO (0.9-2.4); AST(SGOT) 45 U/L (15-37); Alanine Aminotransfer ALT/SGPT 53 U/L (13-56); Albumin, Serum 3.7 g/dL (3.2-5.0); Alkaline Phosphatase 123 U/L (45-117); Anion Gap 5 (5-15); BUN 7 mg/dL (7-18); BUN/Creat Ratio 10.1 RATIO (10-20); Bilirubin, Direct 0.28 mg/dL (0.00-0.30); Calcium,Total 9.1 mg/dL (8.5-10.1); Chloride 106 mmol/L (98-107); Cholesterol 188 mg/dL (200); Creatinine, Serum 0.69 mg/dL (0.55-1.02); EST Glomerular Filtration Rate 97 mL/min (>60); Est Glom Filt Rate - Afr Amer 118 mL/min (>60); Globulin 4.1 g/dL (2.2-4.2); Glucose 92 mg/dL (74-106); High Density Lipoprotein 65 mg/dL; Magnesium 2.1 mg/dL (1.6-2.6); Potassium 3.8 mmol/L (3.5-5.1); Protein, Total 7.8 g/dL (6.4-8.2); Sodium Level 139 mmol/L (136-145); Triglycerides 80 mg/dL; Very Low Density Lipoprotein 16 mg/dL (5-40)
[2024-06-03 10:30] LABS: Prothrombin Time (Protime)PT. 13.6 SECONDS (11.7-14.9)
[2024-06-03 10:31] LABS: Partial Thromboplast Time 24.2 Seconds (24.1-36.2)
== END | disposition home or self-care (01) ==
LOC: LAB 09:14
PROVIDERS: Psychiatry & Neurology Neurology; PCP Family Medicine; Referring Provider Physician Assistant Medical; Visit Provider Physician Assistant Medical
DX: D35.2 Benign neoplasm of pituitary gland (principal); Z86.73 Personal history of transient ischemic attack (TIA), and cerebral infarction without residual deficits
CPT/HCPCS: 36415; 80053; 80061; 82248; 83036; 83735; 84443; 85610; 85730

== ENCOUNTER 2024-06-15 18:52 | Observation (INO) | payer OTHER, SELFPAY ==
[2024-06-15] VITALS (7 sets, daily range): BP systolic 113–146; BP diastolic 73–90; PULSE 67–74; RESP 15–18; TEMP 36.1–36.9; O2SAT 96–100; BMI 24.0; BMI 23.7
--- NOTE | 2024-06-15 19:22 | EKG12_ITS ---
Test Reason : DYSRHYTHMIA Blood Pressure : */* mmHG Vent. Rate : 66 BPM Atrial Rate : 66 BPM P-R Int : 136 ms QRS Dur : 90 ms QT Int : 432 ms P-R-T Axes : 35 72 61 degrees QTcB Int : 452 ms Sinus rhythm with sinus arrhythmia with occasional Premature ventricular complexes Otherwise normal ECG Confirmed by YAKOV CARLTON, NANCY ([id number]), editor school photograph ALIYAH JAMES ([id number]) on 06/20/2024 7:50:54 AM Referred By: ZEB Confirmed By: NANCY NAGY MD
--- NOTE | 2024-06-15 19:25 | EX.ED.DYSGE1 ---
HPI History of Present Illness Chief Complaint: Flank Pain Detail of Chief Complaint: Right flank pain radiating to the right inguinal area Informant: patient Onset/Context/Timing Onset: Days Context: Sudden Onset Timing: Continuous and Waxes and wanes Quality: Severe colicky right flank pain radiating to the right groin Location: Right-sided Current Severity: Severe Maximum Severity: Severe Worsened by: Nothing Relieved by: Nothing Associated Symptoms Associated Symptoms: Nausea Narrative Narrative: Patient is a 43-year-old woman. She presents with acute right flank pain radiating to the right groin area. She was seen today by Dr. Keith. She was instructed the pain got worse to come to the emergency room and he will take her to the OR for stent placement. She denies fever, chills night sweats. She denies cardiac respiratory symptoms. She reports hematuria and urgency. She denies dysuria. She denies trauma direct or indirect. She denies rash. She was seen by me on May 02 for obstructing stone with infection was taken emergently to the OR. She was then seen on May 17 for acute flank pain. Apparently she had a stroke 6 weeks ago. This was thought to be due to the infection. She informing that I am to contact Dr. Keith. Dr. Keith was contacted. Prior similar symptoms: Yes Recent Illness/Hospitalization: Yes [facility] Medical History Hyperlipidemia Abnormal MRI of the head Back pain Migraine headache Wears contact lenses Wears glasses Anxiety MTHFR mutation Non-smoker History of stress test History of echocardiogram Cardiology follow-up encounter History of irregular heartbeat COVID (10/2021) AVNRT (AV linus re-entry tachycardia) Thrombocytopenia Pituitary adenoma Paroxysmal supraventricular tachycardia Asthma Home Medications ?Medication ?Instructions ?Recorded ?Last Taken ?Type albuterol sulfate 90 mcg/actuation 1 puff inhalation Q6H PRN Sob &/Or 09/24/20 Unknown History aerosol inhaler Wheezing metoprolol tartrate 25 mg tablet 25 mg PO BID #180 tabs 03/16/24 05/17/24 Rx clobetasol 0.05 % topical cream 1 applic topical DAILY PRN yeast 05/02/24 Unknown History infection aspirin 81 mg tablet,delayed 81 mg PO QDAY 05/29/24 06/15/24 History release clopidogrel 75 mg tablet (Plavix) 75 mg PO QDAY stroke #21 tabs 05/29/24 06/15/24 Rx hydroxyzine HCl 25 mg tablet 25 mg PO TID PRN anxiety 05/29/24 Unknown History atorvastatin 40 mg tablet 40 mg PO QHS 06/15/24 06/14/24 History Allergy/AdvReac Type Severity Reaction Status Date / Time ciprofloxacin (From Cipro) AdvReac PT UNSURE Verified 06/15/24 18:58 OF REACTION Family History Other Adopted Surgical History History of cystoscopy History of colonoscopy (05/22/22) History of radiofrequency ablation procedure for cardiac arrhythmia (04/30/09) H/O lumpectomy History of lithotripsy Social History Smoking Status: Never smoker alcohol intake: never ROS ROS ED Constitutional Constitutional ED: Denies chills, fever(s), subjective, sweats or weight loss Eyes Eyes: Denies blurry vision or change in vision ENT ENT ED: Denies ear pain or rhinorrhea Cardiovascular Cardiovascular: Denies chest pain or palpitations Respiratory/Chest Respiratory/Chest: Denies cough, dyspnea or dyspnea on exertion Gastrointestinal Gastrointestinal: Reports nausea; Denies abdominal pain, constipation, diarrhea or vomiting Genitourinary Genitourinary ED: Reports hematuria and urinary frequency; Denies dysuria Musculoskeletal Musculoskeletal: Denies arthralgias, back pain, myalgias or neck pain Integumentary Denies Abrasions or rash Neurologic Neurologic: Denies headache(s), paresthesias or weakness Psychiatric Psychiatric: Denies anxiety or depression Hematologic/Lymphatic Hematologic/Lymphatic: Reports systems reviewed and no addt'l complaints, except as documented and other Details: Patient is on Plavix and aspirin. EXAM Physical Exam Const Vital Signs: 06/15/24 18:53 06/15/24 19:15 Temperature 96.9 F L 98.4 F Temperature Source Temporal Oral Pulse Rate 73 72 Respiratory Rate 18 18 Blood Pressure 129/90 H 146/82 H Blood Pressure Mean 103 103 Pulse Ox 99 100 Oxygen Delivery Method Room Air Positive well nourished and well developed General Appearance ED: well developed; Negative for cyanotic, diaphoretic or NAD HEENT Reports moist mucous membranes HEENT Narrative: Head is atraumatic normocephalic. Ears normal. Eyes PERRL and EOMs intact bilaterally General Eye ED: Negative for pale conjunctiva or scleral icterus Neck no lymphadenopathy, supple and no JVD Chest Wall inspection of chest normal and palpation of chest normal Resp normal respiratory effort and clear to auscultation bilaterally Cardio regular rate, regular rhythm, S1 normal heart sound, S2 normal heart sound and no murmurs GI normal to inspection, nondistended, normoactive bowel sounds, non-tender, non-distended and no masses; Negative for hepatosplenomegaly Back/Spine no CVA tenderness Extremity normal to inspection General Extremety ED: Negative for edema or tenderness General Extremity: Negative for edema Neuro oriented x3 and CN's II-XII intact bilaterally Sensorium / Orientation: alert Psych mental status grossly normal Skin no rashes or lesions noted, no wounds and skin turgor normal General Skin Exam: elasticity normal MDM MDM MDM Narrative Medical decision making narrative: Patient is in obvious discomfort due to the obstructing ureteral stone. She has gross hematuria since she is on antithrombotic due to recent stroke. Dr. Keith was contacted. He would like patient admitted. Will hold Plavix and aspirin and plan for surgery tomorrow. He cannot do any laser procedure on her kidney because of the antithrombotic treatment. History & Record Review Additional record(s) reviewed:: Prior outpatient record, Prior ED visit and Prior labs Lab Data Attestation: I reviewed the patient's lab results. Lab results narrative: CBC is normal. UA is pending at the time of admission. Labs: Laboratory Results - last 24 hr 06/15/24 19:20 WBC 9.1 RBC 4.70 Hgb 14.5 Hct 41.9 MCV 89.1 MCH 30.9 MCHC 34.6 RDW Std Deviation 40.7 RDW Coeff of Jerrell 12.5 Plt Count 195 MPV 10.8 Immature Gran % (Auto) 0.300 Neut % (Auto) 67.9 Lymph % (Auto) 22.9 [place] % (Auto) 7.0 Eos % (Auto) 1.5 Baso % (Auto) 0.4 Absolute Neuts (auto) 6.2 Absolute Lymphs (auto) 2.08 Nucleated RBC % 0 EKG Initial EKG: Attestation: I personally reviewed and interpreted this EKG as follows: Interpretation: Sinus Rhythm (Normal sinus rhythm. EKG is normal. Rate is 76. [place] interval is 128 ms. Cures duration 6 ms. QT duration 394 ms. Glynn is normal) Management Discussion w/another healthcare provider: Motion Picture Set Grip Discharge Plan Dx/Rx/DC Orders Clinical Impression: Hydronephrosis with urinary obstruction due to ureteral calculus, Hyperlipidemia, Gross hematuria, Antiplatelet or antithrombotic long-term use Disposition Disposition: Acute Care Hospital [facility]
[2024-06-15] MEDS: Ondansetron 4 MG/2 ML Vial IV (19:28)
[2024-06-15] MEDS: Morphine 4 MG/ML Syringe IV (19:28)
[2024-06-15 19:34] LABS: Absolute Lymphocyte Count 2.08 X10^3/uL (0.83-4.51); Absolute Neutrophil Count 6.2 X10^3/uL (2.0-7.7); Basophil# 0.04 X10^3/uL; Basophil% 0.4 % (0-1); Eosinophil# 0.14 X10^3/uL; Eosinophils% 1.5 % (0-5); Hematocrit 41.9 % (37-47); Hemoglobin 14.5 g/dL (12.0-15.0); Lymphocyte # 2.08 X10^3/ul (0.83-4.51); Lymphocyte % 22.9 % (19-41); Mean Corp Hgb Conc 34.6 g/dL (32-36); Mean Corpuscular Hgb 30.9 pg (27.0-32.0); Mean Corpuscular Volume 89.1 fL (81-99); Mean Platelet Vol. 10.8 fl (6.2-12.0); Monocyte# 0.64 X10^3/uL; NRBC Flagged by Analyzer 0 % (0-5); Neutrophil # 6.16 X10^3/uL (2.7-7.7); Neutrophil % 67.9 % (47-70); Platelet Count 195 K/mm3 (150-450); RBC Distribution Width CV 12.5 % (11.6-14.6); RBC Distribution Width SD 40.7 fl (35.1-43.9); White Blood Count 9.1 K/mm3 (4.4-11.0)
[2024-06-15 19:48] LABS: Anion Gap 6 (5-15); BUN 13 mg/dL (7-18); BUN/Creat Ratio 14.6 RATIO (10-20); Calcium,Total 9.5 mg/dL (8.5-10.1); Chloride 108 mmol/L (98-107); Creatinine, Serum 0.89 mg/dL (0.55-1.02); EST Glomerular Filtration Rate 73 mL/min (>60); Est Glom Filt Rate - Afr Amer 89 mL/min (>60); Estimated Creatinine Clearance 75.51 ml/min; Glucose 108 mg/dL (74-106); Potassium 3.4 mmol/L (3.5-5.1); Sodium Level 142 mmol/L (136-145)
[2024-06-15 20:04] LABS: Mucous, Urine 0 SEEN /hpf (<or=2+)
[2024-06-15 20:08] LABS: Color, Urine Yellow (Yellow); Glucose, Dipstick Normal (Normal); Ketone-Dipstick Negative (Negative); Leukocyte Esterase-Dipstick 500 /ul (Negative); Nitrite-Dipstick Positive (Negative); Occult Blood-Urine 250 /ul (Negative); Protein-Dipstick 100 mg/dl (Negative); Specific Gravity, Urine 1.025 (1.002-1.030); Urine Clarity Sl. Cloudy (Clear); Urine Urobilinogen 1 mg/dl (Normal)
[2024-06-15 20:14] LABS: Urine Bilirubin Dipstick 1 mg/dL (Negative)
[2024-06-15 20:19] LABS: Bacteria 1+ /hpf (None Seen); Red Blood Cells-Urine 10-25 SEEN /hpf (0-5); Squamous Epithelial Cells - UA 0-5 SEEN /hpf (5-10); White Blood Cells 5-10 SEEN /hpf (0-5)
[2024-06-15] MEDS: Ketorolac 15 MG/ML Vial IV (20:28)
[2024-06-16] VITALS (11 sets, daily range): BP systolic 103–128; BP diastolic 60–79; PULSE 68–80; RESP 15–16; TEMP 36.6–37.6; O2SAT 94–99; BMI 23.7
--- NOTE | 2024-06-16 00:27 | PCM.HP.STD ---
HPI - General General Date of Admission: 06/15/24 Date of Service: 06/15/24 Chief Complaint: left kidney stone HPI Narrative MAHSA MORE, is a 43 F who presents with severe left flank pain, has stone in the Left UPJ also h/o stroke recently affected vision. on plavix - hold continue with aspririn. plan for stent tomorrow, npo at [facility] Medical History Hyperlipidemia Abnormal MRI of the head Back pain Migraine headache Wears contact lenses Wears glasses Anxiety MTHFR mutation Non-smoker History of stress test History of echocardiogram Cardiology follow-up encounter History of irregular heartbeat COVID (10/2021) AVNRT (AV linus re-entry tachycardia) Thrombocytopenia Pituitary adenoma Paroxysmal supraventricular tachycardia Asthma Home Medications ?Medication ?Instructions ?Recorded ?Last Taken ?Type albuterol sulfate 90 mcg/actuation 1 puff inhalation Q6H PRN Sob &/Or 09/24/20 Unknown History aerosol inhaler Wheezing metoprolol tartrate 25 mg tablet 25 mg PO BID #180 tabs 03/16/24 05/17/24 Rx clobetasol 0.05 % topical cream 1 applic topical DAILY PRN yeast 05/02/24 Unknown History infection aspirin 81 mg tablet,delayed 81 mg PO QDAY 05/29/24 06/15/24 History release clopidogrel 75 mg tablet (Plavix) 75 mg PO QDAY stroke #21 tabs 05/29/24 06/15/24 Rx hydroxyzine HCl 25 mg tablet 25 mg PO TID PRN anxiety 05/29/24 Unknown History atorvastatin 40 mg tablet 40 mg PO QHS 06/15/24 06/14/24 History Allergy/AdvReac Type Severity Reaction Status Date / Time ciprofloxacin (From Cipro) AdvReac PT UNSURE Verified 06/15/24 18:58 OF REACTION Family History Other Adopted Surgical History History of cystoscopy History of colonoscopy (05/22/22) History of radiofrequency ablation procedure for cardiac arrhythmia (04/30/09) H/O lumpectomy History of lithotripsy Social History Smoking Status: Never smoker alcohol intake: never Vital Signs Vital Signs Vital Signs: 06/15/24 18:53 06/15/24 19:15 06/15/24 20:00 Temperature 96.9 F L 98.4 F 98.4 F Temperature Source Temporal Oral Oral Pulse Rate 73 72 74 Respiratory Rate 18 18 15 Blood Pressure 129/90 H 146/82 H 126/75 H Blood Pressure Mean 103 103 92 Blood Pressure Source Blood Pressure Position Blood Pressure Location Pulse Ox 99 100 97 Oxygen Delivery Method Room Air Room Air 06/15/24 20:19 06/15/24 20:53 06/15/24 21:00 Temperature 98.4 F 98.4 F Temperature Source Oral Pulse Rate 69 67 67 Respiratory Rate 16 16 16 Blood Pressure 121/78 H 113/77 113/77 Blood Pressure Mean 92 89 89 Blood Pressure Source Blood Pressure Position Blood Pressure Location Pulse Ox 96 98 98 Oxygen Delivery Method Room Air Room Air 06/15/24 21:53 Temperature 98.2 F Temperature Source Oral Pulse Rate 67 Respiratory Rate 16 Blood Pressure 126/73 H Blood Pressure Mean 90 Blood Pressure Source Monitor Blood Pressure Position Semi-Fowlers Blood Pressure Location Right Arm Pulse Ox 97 Oxygen Delivery Method Room Air Weight Weight: 66.678 kg Body Mass Index (BMI) 23.7 Results Lab / Micro Data 06/15/24 19:20 06/15/24 19:20 Labs: Laboratory Results - last 24 hr 06/15/24 19:20: WBC 9.1, RBC 4.70, Hgb 14.5, Hct 41.9, MCV 89.1, MCH 30.9, MCHC 34.6, RDW Std Deviation 40.7, RDW Coeff of Jerrell 12.5, Plt Count 195, MPV 10.8, Immature Gran % (Auto) 0.300, Neut % (Auto) 67.9, Lymph % (Auto) 22.9, [place] % (Auto) 7.0, Eos % (Auto) 1.5, Baso % (Auto) 0.4, Absolute Neuts (auto) 6.2, Absolute Lymphs (auto) 2.08, Nucleated RBC % 0, Sodium 142, Potassium 3.4 L, Chloride 108 H, Carbon Dioxide 28.0, Anion Gap 6, BUN 13, Creatinine 0.89, Estim Creat Clear Calc 75.51, Est GFR (MDRD) Af Amer 89, Est GFR (MDRD) Non-Af 73, BUN/Creatinine Ratio 14.6, Glucose 108 H, Calcium 9.5 06/15/24 19:51: Urine Color Yellow, Urine Clarity Sl. Cloudy, Urine pH 6.0, Ur Specific Athena 1.025, Urine Protein 100 H, Urine Glucose (UA) Normal, Urine Ketones Negative, Urine Occult Blood 250 H, Urine Nitrite Positive H, Urine Bilirubin 1 H, Urine Urobilinogen 1 H, Ur Leukocyte Esterase 500 H, Urine RBC 10-25 SEEN, Urine WBC 5-10 SEEN, Ur Squamous Epith Cells 0-5 SEEN, Urine Bacteria 1+, Urine Mucus 0 SEEN
[2024-06-16 00:41] LABS: Internal QC Validated? YES +Cl - CLEAR BKGD; Pregnancy, Urine Negative Negative
[2024-06-16] MEDS: Acetaminophen 500 MG Tablet PO ×2 (05:50→13:31)
[2024-06-16] MEDS: Metoprolol Tartrate 25 MG Tablet PO (09:22)
--- NOTE | 2024-06-16 14:33 | PRE.ANES_ITS ---
ASA Classification* ASA Classification ASA Classification: 3 Assessment & Plan Anesthesia* Anesthesia Assessment Anesthesia Assessment: Discussed sedation and/or anesthesia options, risks, benefits, and alternatives with patient/parents/legal guardian/POA. Questions invited. The patient/parents/legal guardian/POA seems to understand and agrees to proceed with anesthesia plan. Reviewed the physical assessment, medical history, allergy history and patient home medications list prior to surgery/procedure/anesthetic and documented any changes. Performed airway and anesthesia risk assessments. Anesthesia Type Anesthesia Type: MAC History Source History Obtained from:: Patient and Chart Anesthesia Focused Assessment* Temperature: 98.2 F Pulse Rate: 72 Blood Pressure: 112/79 Respiratory Rate: 15 Pulse Ox: 98 Oxygen Delivery Method: Room Air Airway Assessment Mouth opens: >3 cm Mallampati Score: II Teeth Condition: Intact Neck Range of motion (ROM): Full ROM Focused Labs Anesthesia Preop lab: CBC WBC 9.1 K/mm3 (4.4-11.0) 06/15/24 19:20 RBC 4.70 M/mm3 (4.2-5.4) 06/15/24 19:20 Hgb 14.5 g/dL (12.0-15.0) 06/15/24 19:20 Hct 41.9 % (37-47) 06/15/24 19:20 Plt Count 195 K/mm3 (150-450) 06/15/24 19:20 CHEMISTRY Potassium 3.4 mmol/L (3.5-5.1) L 06/15/24 19:20 Sodium 142 mmol/L (136-145) 06/15/24 19:20 Magnesium 2.1 mg/dL (1.6-2.6) 06/03/24 09:24 BUN 13 mg/dL (7-18) 06/15/24 19:20 Creatinine 0.89 mg/dL (0.55-1.02) 06/15/24 19:20 Glucose 108 mg/dL (74-106) H 06/15/24 19:20 TSH 0.730 uIU/mL (0.358-3.740) 06/03/24 09:24 COAG PT 13.6 SECONDS (11.7-14.9) 06/03/24 09:24 HCG, Quant 1109 mIU/mL (<9 non-preg) H 12/14/14 15:56 Urine Test Negative Negative 06/15/24 19:51 Pre-Assessment Diagnosis/Proposed Procedure Planned Operative Procedure(s): Cystoscopy and left stent placement. Anesthesia History Anesthesia History - head of measurement & insights: Anesthesia History - head of measurement & insights Hx Hospitalization No 05/16/24 13:12 Any Problems With Anesthesia No 06/16/24 00:21 Cholinesterase deficiency No 06/16/24 00:21 You/Your Family Experience No 06/16/24 00:21 fever (hyperthermia) with Relationship Recent Exposure to Contagious No 06/16/24 00:21 Disease Does patient have nerve No 06/16/24 00:21 stimulator Patient instructed to have device shut off --Does patient have Pacemaker No 06/16/24 08:00 or ICD? When Was Last Pacemaker Check QUESTION #4 FULL TEXT: You/Your Family Experience fever (hyperthermia) with Anesthesia Last Oral Intake Last Oral intake: Last Oral Intake NPO since 00:00 06/16/24 08:00 Meds taken in AM with sips of Yes 06/16/24 08:00 water? Meds patient instructed to lopressor 06/16/24 08:00 take am of surgery Any additional information?: Yes Meds taken in AM with sips of water?: Yes PONV PONV - head of measurement & insights: PONV - head of measurement & insights Female HX of Motion Sickness HX of N/V After Surgery Non-Smoker Duration of Surgery greater than 60 minutes Number of Risk Factors PONV Score Height & Weight Height & Weight: Anesthesia: Height & Weight Height 5 ft 6 in 06/16/24 08:00 Weight: 66.678 kg 06/16/24 08:00 Body Mass Index (BMI) 23.7 06/16/24 08:00 Respiratory Assessment Respiratory Assessment - head of measurement & insights: Respiratory Tract Infection Hx - head of measurement & insights Hx Respiratory Tract Infection No 06/16/24 00:21 STOP Sleep Apnea STOP Sleep Apnea - head of measurement & insights: STOP Sleep Apnea - head of measurement & insights Hx Hypertension No 06/15/24 21:42 Hx Sleep Apnea No 06/15/24 21:42 CPAP No 06/15/24 21:42 BIPAP No 06/15/24 21:42 Do you snore loudly (louder No 06/15/24 21:42 than talking or can be heard Do you often feel tired/ No 06/15/24 21:42 fatigued/ sleepy during daytime? Has anyone observed you stop No 06/15/24 21:42 breathing during sleep? STOP Results Negative 06/15/24 21:42 QUESTION #5 FULL TEXT : Do you snore loudly (louder than talking or can be heard through closed doors)? 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 Specify any problems Hx of Preganancy in last 3 No 06/15/24 21:42 Months Nurse Filling Out Transfusion TMELLOR 06/15/24 21:42 & Questions: Date: 06/15/24 06/15/24 21:42 Time: 21:45 06/15/24 21:42 Patient unable to answer at this time (ie. confused, unrespo /Reproduction History /Reproductive History - head of measurement & insights: /Reproductive Hx- head of measurement & insights Hx Now ordered 06/16/24 00:21 Gestational Age (in weeks): EDC: Hx Hx Para Hx Section SAB No 06/15/24 18:53 Active Medications Active Medications: Current Medications Generic Name Dose Route Start Last Admin Trade Name Freq PRN Reason Stop Dose Admin Acetaminophen 500 mg 06/15/24 22:39 06/16/24 13:31 Acetaminophen 500 Mg Tablet PO 500 mg Q4H PRN PRN Administration Pain 1-10 or Fever Albuterol Sulfate 2.5 mg 06/16/24 00:49 Albuterol 2.5 Mg/3 Ml Vial.Neb. INHALATION Q4H PRN PRN Sob &/Or Wheezing Aspirin 81 mg 06/16/24 10:00 06/16/24 09:23 Aspirin E.C. 81 Mg Tablet PO Not Given DAILY [facility] Atorvastatin Calcium 40 mg 06/16/24 22:00 Atorvastatin Calcium 40 Mg Tablet PO QHS [facility] Hydroxyzine Pamoate 25 mg 06/16/24 00:25 Hydroxyzine Shilpa 25 Mg Capsule PO TID PRN PRN anxiety Sodium Chloride 500 mls @ 15 mls/hr 06/15/24 21:35 IV .[id number] PRN Saline Flush Metoprolol Tartrate 25 mg 06/16/24 10:00 06/16/24 09:22 Metoprolol Tartrate 25 Mg Tablet PO 25 mg BID [facility] Administration Protocol Morphine Sulfate 2 mg 06/15/24 22:37 Morphine 2 Mg/Ml Syringe IV Q2H PRN PRN Pain Score 4-10 Ondansetron HCl 4 mg 06/15/24 22:41 Ondansetron 4 Mg/2 Ml Vial IV Q6H PRN PRN NAUSEA/VOMITING Sodium Chloride 10 - 40 ml 06/15/24 21:35 0.9% Saline Lock 10 Ml Syringe IV UD PRN SALINE FLUSH PFSH Medical History Hyperlipidemia Abnormal MRI of the head Back pain Migraine headache Wears contact lenses Wears glasses Anxiety MTHFR mutation Non-smoker History of stress test History of echocardiogram Cardiology follow-up encounter History of irregular heartbeat COVID (10/2021) AVNRT (AV linus re-entry tachycardia) Thrombocytopenia Pituitary adenoma Paroxysmal supraventricular tachycardia Asthma Home Medications ?Medication ?Instructions ?Recorded ?Last Taken ?Type albuterol sulfate 90 mcg/actuation 1 puff inhalation Q6H PRN Sob &/Or 09/24/20 Unknown History aerosol inhaler Wheezing metoprolol tartrate 25 mg tablet 25 mg PO BID #180 tabs 03/16/24 06/16/24 Rx clobetasol 0.05 % topical cream 1 applic topical DAILY PRN yeast 05/02/24 Unknown History infection aspirin 81 mg tablet,delayed 81 mg PO QDAY 05/29/24 06/15/24 History release clopidogrel 75 mg tablet (Plavix) 75 mg PO QDAY stroke #21 tabs 05/29/24 06/15/24 Rx hydroxyzine HCl 25 mg tablet 25 mg PO TID PRN anxiety 05/29/24 Unknown History atorvastatin 40 mg tablet 40 mg PO QHS 06/15/24 06/14/24 History Allergy/AdvReac Type Severity Reaction Status Date / Time ciprofloxacin (From Cipro) AdvReac PT UNSURE Verified 06/15/24 18:58 OF REACTION Family History Other Adopted Surgical History History of cystoscopy History of colonoscopy (05/22/22) History of radiofrequency ablation procedure for cardiac arrhythmia (04/30/09) H/O lumpectomy History of lithotripsy Social History Smoking Status: Never smoker alcohol intake: never Review of Systems (Anesthesia) ROS Narrative System reviewed and no additional complaints, except as documented.
--- NOTE | 2024-06-16 15:15 | DCINST_ITS ---
Discharge Instructions Diet Discharge Diet: No restrictions Activity Discharge Activity: Return to Normal Activity and May Not Drive (while taking narcotic pain medications.) Dressing / Incision Call your doctor if you observe: Fever of 101 or Higher Follow Up Care Please Follow Up With: Michoacano Keith MD When: Call [phone] for an appointment Test Results: Test results from this visit will be discussed in further detail at your follow- up appointment, if applicable. Discharge Plan Admission Admit Date/Time: 06/16/24 00:26 Primary Reason for Your Visit: left stent Attending Provider: Michoacano Keith Primary Care Provider: Rosy Teague Discharge Orders/Prescriptions Prescriptions: New cephalexin 500 mg capsule 500 mg PO TID Qty: 10 0RF oxycodone 5 mg tablet 5 mg PO Q6H PRN (Reason: pain) 3 Days Qty: 14 0RF Continued aspirin 81 mg tablet,delayed release (DR/EC) 81 mg PO QDAY hydroxyzine HCl 25 mg tablet 25 mg PO TID PRN (Reason: anxiety) albuterol sulfate 1 PUFF inhaler 1 puff INHALATION Q6H PRN (Reason: Sob &/Or Wheezing) clobetasol 0.05 % cream 1 applic topical DAILY PRN (Reason: yeast infection) atorvastatin 40 mg tablet 40 mg PO QHS metoprolol tartrate 25 mg tablet 25 mg PO BID Qty: 180 3RF Held clopidogrel [Plavix] 75 mg tablet 75 mg PO QDAY Qty: 21 0RF Hold Instructions: Resume on 06/22/24. Referrals / Follow Up: Rosy Teague MD [Primary Care Provider] - Disposition Discharge Orders: Discharge Patient (Routine); Ordered 06/16/24 Ordered By: Dr. Michoacano Keith
[2024-06-16] MEDS: Cefazolin 2 GM in Syringe IV (15:17)
--- NOTE | 2024-06-16 15:23 | OP.PCM_ITS ---
Operative Report (Standard) Operative Information Surgery/Procedure Performed: Cysto left retrograde pyelogram and left stent Surgeon: Michoacano Keith Date of Procedure: 06/16/24 Procedure Start Time: 15:17 Procedure Stop Time: 15:23 Pre-Operative Diagnosis: Left obstruction stone Post-Operative Diagnosis: same Select all DRAINS/GRAFTS/IMPLANTS that apply: Drains Drain details: left stent Type of Anesthesia: General Estimated Blood Loss: none Specimen collected: No Description of surgery: Patient was taken back to the operating room after induction of general anesthesia, the patient was placed in dorsolithotomy position. The urethra and genitals were prepped and draped in usual sterile fashion. Using a 21 Moroccan rigid cystourethroscope the entire length of the urethra was normal then went into the bladder. Identified the trigone the left and right ureteral orifice. I then cannulated the LEFT orifice and advanced a wire up into the kidney. I then backloaded a 5 Moroccan open ended catheter over the wire and injected contrast to delineate the anatomy. After the retrograde was performed I then used fluoroscopic images and guidance to advanced a wire up into the kidney and over the 0.038 glidewire I advanced a 6 Moroccan by 26 cm double pigtail stent. I then pulled the 0.038 Glidewire off and the stent coiled in the kidney bladder good position. The bladder was then drained. We confirmed the position of the stent by fluoroscopy. Patient anesthetic was reversed and was taken back to the PACU in good condition. Surgical Findings: stent placed left side Dental Internship shared services manager: No Complications Complications: No Admit VTE Documentation VTE Present on Admission: No VTE Mechan Device Prophylaxis: SCD's VTE Pharm Prophylaxis ordered?: No
--- NOTE | 2024-06-16 15:32 | PCM.POST.ANE ---
Anesthesia: Postop Eval I Current Vital Signs Temperature: 99.6 F Pulse Rate: 70 Blood Pressure: 103/60 Respiratory Rate: 16 Pulse Ox: 97 Oxygen Delivery Method: Room Air Assessment Airway patent: Yes Spontaneous unlabored respirations: Yes Mental status: Awake and Calm nausea: No Vomiting: No Anesthesia Complication: No Fluid Hydration Crystalloid volume administer (ml): 10 Total IV fluid infused: 10 Progress Note Anesthesia document: Postop Eval 1 completed: Yes
--- NOTE | 2024-06-16 16:26 | POSTOPAN2_ITS ---
Anesthesia Postop Eval I Sum Postop Eval Completion status Anesthesia document: Postop Eval 1 completed: Yes Anesthesia Postop Eval I Summary Anesthesia Postop Eval I Summary: Anesthesia Postop Eval I: Assessment Summary Airway patent Yes 06/16/24 15:33 WORD PROCESSOR [email or web address].[email or web address] Spontaneous unlabored Yes 06/16/24 15:33 WORD PROCESSOR OPERATOR.PREETI respirations Mental status Awake,Calm 06/16/24 15:33 WORD PROCESSOR OPERATOR.[email or web address] nausea No 06/16/24 15:33 WORD PROCESSOR OPERATOR.SKOBY Vomiting No 06/16/24 15:33 WORD PROCESSOR OPERATOR.[email or web address] Anesthesia Postop Eval I: Fluid Summary Crystalloid volume administer 10 06/16/24 15:33 WORD PROCESSOR OPERATOR.[email or web address] (ml) Colloids volume administered ( ml) Blood Product volume administered (ml) Total IV fluid infused 10 06/16/24 15:33 WORD PROCESSOR OPERATOR.PREETI Anesthesia Postop Eval I: Summary Notes Anesthesia Complication No 06/16/24 15:33 WORD PROCESSOR OPERATOR.PREETI Anesthesia Complication Comment: Post-operative progress note Anesthesia: Postop Eval II Evaluation Mental status: Awake Pain Level: 0 nausea: No Vomiting: No
--- NOTE | 2024-06-16 16:26 | PCM.POSTANE2 ---
Anesthesia Postop Eval I Sum Postop Eval Completion status Anesthesia document: Postop Eval 1 completed: Yes Anesthesia Postop Eval I Summary Anesthesia Postop Eval I Summary: Anesthesia Postop Eval I: Assessment Summary Airway patent Yes 06/16/24 15:33 MANAGER [email or web address] Spontaneous unlabored Yes 06/16/24 15:33 MANAGER CASINO.PREETI respirations Mental status Awake,Calm 06/16/24 15:33 MANAGER [email or web address].[email or web address] nausea No 06/16/24 15:33 MANAGER CASINO.SKOBY Vomiting No 06/16/24 15:33 MANAGER [email or web address].[email or web address] Anesthesia Postop Eval I: Fluid Summary Crystalloid volume administer 10 06/16/24 15:33 MANAGER [email or web address].[email or web address] (ml) Colloids volume administered ( ml) Blood Product volume administered (ml) Total IV fluid infused 10 06/16/24 15:33 MANAGER CASINO.PREETI Anesthesia Postop Eval I: Summary Notes Anesthesia Complication No 06/16/24 15:33 MANAGER CASINO.PREETI Anesthesia Complication Comment: Post-operative progress note Anesthesia: Postop Eval II Evaluation Mental status: Awake Pain Level: 0 nausea: No Vomiting: No
== END 2024-06-16 16:31 | disposition home or self-care (01) ==
LOC: ED 20:13 → MS3 06-16 02:00
PROVIDERS: Anesthesiology; Admitting Provider Urology; Emergency Provider Emergency Medicine; PCP Family Medicine; Visit Provider Urology
PROC: (CPT 52332; principal; 2024-06-16 12:20)
DX: N13.2 Hydronephrosis with renal and ureteral calculous obstruction (principal); E78.5 Hyperlipidemia, unspecified; R11.0 Nausea; Z79.02 Long term (current) use of antithrombotics/antiplatelets; Z79.82 Long term (current) use of aspirin; I49.3 Ventricular premature depolarization; E72.12 Methylenetetrahydrofolate reductase deficiency; J45.909 Unspecified asthma, uncomplicated; Z79.899 Other long term (current) drug therapy; R31.0 Gross hematuria; I69.398 Other sequelae of cerebral infarction; H53.9 Unspecified visual disturbance
CPT/HCPCS: 52332; 00910; 76000; 80048; 81001; 81025; 85025; 93005; 96374; 96375; 99221; 99285; A4216; C1769; C2617; G0378; J2405

== ENCOUNTER → 2024-06-15 | Outpatient (CLI) | payer OTHER, SELFPAY ==
--- NOTE | 2024-06-15 11:18 | RAD_ITS ---
EXAM: XR Abdomen 1 View INDICATION: Female, 43 years old. Nephrolithiasis TECHNIQUE: AP supine view COMPARISON: None FINDINGS: BOWEL: Normal gastric, small bowel and colonic gas patterns. No mucosal wall thickening. PERITONEUM: No free intraperitoneal air. ORGANS: No intra-abdominal mass. There are clusters of calcifications overlying the mid right renal silhouette and the mid to lower left renal silhouette.. There is a 9 x 5 mm calculus overlying the proximal left ureter. SKELETAL STRUCTURES: No acute skeletal abnormality. RAD/Abdomen Single View IMPRESSION: 1. Bilateral nephrolithiasis with likely 9 x 5 mm proximal left ureteral calculus. 2. Normal bowel gas pattern. Electronically Signed: Wilmer Zimmerman MD at 0:14 EST ,
== END | disposition home or self-care (01) ==
LOC: RAD 11:15
PROVIDERS: PCP Family Medicine; Referring Provider Urology; Visit Provider Urology
DX: N20.0 Calculus of kidney (principal)
CPT/HCPCS: 74018

== ENCOUNTER → 2024-06-19 | Outpatient (CLI) | payer OTHER, SELFPAY ==
--- NOTE | 2024-06-19 13:46 | ECHOD_ITS ---
Reason For Study: PALPITATIONS Procedure This was a 2D Doppler, Color Flow transthoracic echocardiogram. The study was technically difficult. Limited views were obtained. Exam performed in department. Left Ventricle Normal LV size. Left ventricular systolic function is normal. The left ventricular ejection fraction is 55 %. No regional wall motion abnormalities noted. Right Ventricle Normal RV size. Normal systolic function. Atria Normal left atrium. Normal right atrium. Bubble contrast study negative for right to left interatrial shunt. Mitral Valve Normal mitral valve. Tricuspid Valve Normal tricuspid valve. Aortic Valve Normal aortic valve. Trisinus/trileaflet aortic valve. Pulmonic Valve Normal pulmonic valve. Great Vessels Normal aortic root. The pulmonary artery is normal size. Normal inferior vena cava. Pericardium/Pleural No pericardial effusion. Medication 22 gauge I.V. with prn adaptor inserted into left arm. Performed a rapid injection of agitated mix of 9 cc saline and 1cc air to assess for atrial septal defect. MMode/2D Measurements & Calculations LVIDd: 4.2 cm IVSd: 0.97 cm LVIDs: 3.1 cm LVPWd: 0.95 cm FS: 26.6 % Time Measurements MV dec time: 0.24 sec Doppler Measurements & Calculations MV E max zeke: 40.6 cm/sec MV dec slope: 172.3 cm/sec2 Ao V2 max: 99.8 cm/sec MV A max zeke: 56.4 cm/sec Ao max P.0 mmHg MV E/A: 0.72 Ao V2 mean: 66.9 cm/sec Ao mean P.1 mmHg Ao V2 VTI: 22.5 cm AV (velocity ratio): 0.67 LV V1 max: 73.1 cm/sec PA V2 max: 96.8 cm/sec LV V1 max P.1 mmHg PA V2 mean: 77.6 cm/sec LV V1 mean P.1 mmHg LV V1 mean: 47.9 cm/sec LV V1 VTI: 15.1 cm ECHO/Echo Complete Interpretation Summary Normal LV size. Left ventricular systolic function is normal. The left ventricular ejection fraction is 55 %. Bubble contrast study negative for right to left interatrial shunt. Ordering Physician: Ludy Rodriguez Referring Physician: Ludy Rodriguez Performed By: Mine Allison RCS
== END | disposition home or self-care (01) ==
LOC: CVS 13:46
PROVIDERS: PCP Family Medicine; Referring Provider Physician Assistant Medical; Visit Provider Physician Assistant Medical
DX: I63.9 Cerebral infarction, unspecified (principal); I47.10 Supraventricular tachycardia, unspecified
CPT/HCPCS: 93306

== ENCOUNTER 2024-06-21 12:03 | Day surgery (SDC) | payer OTHER, SELFPAY ==
[2024-06-21] VITALS (7 sets, daily range): BP systolic 97–115; BP diastolic 61–80; PULSE 67–76; RESP 12–18; TEMP 36.3–37.1; O2SAT 100; BMI 23.5
--- NOTE | 2024-06-21 12:18 | PCM.PRE.AN2 ---
ASA Classification* ASA Classification ASA Classification: 3 Assessment & Plan Anesthesia* Anesthesia Assessment Anesthesia Assessment: Discussed sedation and/or anesthesia options, risks, benefits, and alternatives with patient/parents/legal guardian/POA. Questions invited. The patient/parents/legal guardian/POA seems to understand and agrees to proceed with anesthesia plan. Reviewed the physical assessment, medical history, allergy history and patient home medications list prior to surgery/procedure/anesthetic and documented any changes. Performed airway and anesthesia risk assessments. Anesthesia Type Anesthesia Type: General Anesthesia Focused Assessment* Airway Assessment Mouth opens: >3 cm Mallampati Score: II Focused Labs Anesthesia Preop lab: CBC WBC 9.1 K/mm3 (4.4-11.0) 06/15/24 19:20 RBC 4.70 M/mm3 (4.2-5.4) 06/15/24 19:20 Hgb 14.5 g/dL (12.0-15.0) 06/15/24 19:20 Hct 41.9 % (37-47) 06/15/24 19:20 Plt Count 195 K/mm3 (150-450) 06/15/24 19:20 CHEMISTRY Potassium 3.4 mmol/L (3.5-5.1) L 06/15/24 19:20 Sodium 142 mmol/L (136-145) 06/15/24 19:20 Magnesium 2.1 mg/dL (1.6-2.6) 06/03/24 09:24 BUN 13 mg/dL (7-18) 06/15/24 19:20 Creatinine 0.89 mg/dL (0.55-1.02) 06/15/24 19:20 Glucose 108 mg/dL (74-106) H 06/15/24 19:20 TSH 0.730 uIU/mL (0.358-3.740) 06/03/24 09:24 COAG PT 13.6 SECONDS (11.7-14.9) 06/03/24 09:24 HCG, Quant 1109 mIU/mL (<9 non-preg) H 12/14/14 15:56 Urine Test Negative Negative 06/15/24 19:51 Pre-Assessment Diagnosis/Proposed Procedure Planned Operative Procedure(s): BILAT URETEROSCOPY LASER STONE AND BILAT STENTS Anesthesia History Anesthesia History - 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 When Was Last Pacemaker Check QUESTION #4 FULL TEXT: You/Your Family Experience fever (hyperthermia) with Anesthesia Last Oral Intake Last Oral intake: Last Oral Intake NPO since Meds taken in AM with sips of water? Meds patient instructed to take am of surgery PONV PONV - noxious weeds and pest inspector: PONV - noxious weeds and pest inspector Female Yes 06/19/24 14:39 HX of Motion Sickness Yes 06/19/24 14:39 HX of N/V After Surgery No 06/19/24 14:39 Non-Smoker Yes 06/19/24 14:39 Duration of Surgery greater Yes 06/19/24 14:39 than 60 minutes Number of Risk Factors 4 06/19/24 14:39 PONV Score Severe Risk 06/19/24 14:39 Height & Weight Height & Weight: Anesthesia: Height & Weight Height 5 ft 6 in 06/16/24 08:00 Respiratory Assessment Respiratory Assessment - noxious weeds and pest inspector: Respiratory Tract Infection Hx - noxious weeds and pest inspector Hx Respiratory Tract Infection No 06/19/24 14:39 STOP Sleep Apnea STOP Sleep Apnea - noxious weeds and pest inspector: STOP Sleep Apnea - noxious weeds and pest inspector Hx Hypertension No 06/19/24 14:39 Hx Sleep Apnea No 06/19/24 14:39 CPAP No 06/19/24 14:39 BIPAP No 06/19/24 14:39 Do you snore loudly (louder No 06/19/24 14:39 than talking or can be heard Do you often feel tired/ No 06/19/24 14:39 fatigued/ sleepy during daytime? Has anyone observed you stop No 06/19/24 14:39 breathing during sleep? STOP Results Negative 06/19/24 14:39 QUESTION #5 FULL TEXT : Do you snore loudly (louder than talking or can be heard through closed doors)? Tobacco Use History Tobacco Use History - noxious weeds and pest inspector: Tobacco Use History - noxious weeds and pest inspector Tobacco Use Smoking Status Never smoker 06/19/24 14:39 Hx Tobacco Use No 06/19/24 14:39 Years Smoking Packs Smoked per Day Smoking Cessation Date was within the last 15 years Hx Smoking Cessation Date Hx Smoking Cessation Counseling Hematologic Medial History Hematologic Hx - noxious weeds and pest inspector: Hematologic Medical Hx - waste cotton cleaner Hx of Blood Transfusion No 06/19/24 14:39 Hx of Transfusion in last 3 No 06/19/24 14:39 Months Date of Last Transfusion (if within last 3 months) Ever experience any problems No 06/19/24 14:39 with transfusion(s)? Specify any problems Hx of Preganancy in last 3 No 06/19/24 14:39 Months Nurse Filling Out Transfusion DSCHRIBER 06/19/24 14:39 & Questions: Date: 06/19/24 06/19/24 14:39 Time: 14:40 06/19/24 14:39 Patient unable to answer at this time (ie. confused, unrespo /Reproduction History /Reproductive History - noxious weeds and pest inspector: /Reproductive Hx- noxious weeds and pest inspector Hx Now Gestational Age (in weeks): EDC: Hx Hx Para Hx Section SAB No 06/19/24 14:39 Active Medications Active Medications: Current Medications Generic Name Dose Route Start Last Admin Trade Name Freq PRN Reason Stop Dose Admin Cefazolin Sodium 2 gm/ N/A 20 mls @ 400 mls/hr 06/21/24 14:05 IV 06/21/24 14:07 PREOP ONE PFSH Medical History Hyperlipidemia Abnormal MRI of the head Back pain Migraine headache Wears contact lenses Wears glasses Anxiety MTHFR mutation Non-smoker History of stress test History of echocardiogram Cardiology follow-up encounter History of irregular heartbeat COVID (10/2021) AVNRT (AV linus re-entry tachycardia) Thrombocytopenia Pituitary adenoma Paroxysmal supraventricular tachycardia Asthma Home Medications ?Medication ?Instructions ?Recorded ?Last Taken ?Type albuterol sulfate 90 mcg/actuation 1 puff inhalation Q6H PRN Sob &/Or 09/24/20 Unknown History aerosol inhaler Wheezing metoprolol tartrate 25 mg tablet 25 mg PO BID #180 tabs 03/16/24 06/16/24 Rx clobetasol 0.05 % topical cream 1 applic topical DAILY PRN yeast 05/02/24 Unknown History infection aspirin 81 mg tablet,delayed 81 mg PO QDAY 05/29/24 06/15/24 History release clopidogrel 75 mg tablet (Plavix) 75 mg PO QDAY stroke #21 tabs 05/29/24 06/15/24 Rx hydroxyzine HCl 25 mg tablet 25 mg PO TID PRN anxiety 05/29/24 Unknown History atorvastatin 40 mg tablet 40 mg PO QHS 06/15/24 06/14/24 History oxycodone 5 mg tablet 5 mg PO Q6H PRN pain 3 days #14 06/16/24 Unknown Rx tabs Allergy/AdvReac Type Severity Reaction Status Date / Time ciprofloxacin (From Cipro) AdvReac PT UNSURE Verified 06/15/24 18:58 OF REACTION Family History Other Adopted Surgical History History of cystoscopy History of colonoscopy (05/22/22) History of radiofrequency ablation procedure for cardiac arrhythmia (04/30/09) H/O lumpectomy History of lithotripsy Social History Smoking Status: Never smoker alcohol intake: never Review of Systems (Anesthesia) ROS Narrative System reviewed and no additional complaints, except as documented.
[2024-06-21] MEDS: Lactated Ringers 1,000 ML 15 ML IV ×2 (12:39→15:50)
[2024-06-21 12:41] LABS: Internal QC Validated? YES +Cl - CLEAR BKGD; Pregnancy, Urine Negative Negative
--- NOTE | 2024-06-21 14:06 | DCINST_ITS ---
Discharge Instructions Diet Discharge Diet: No restrictions Activity Discharge Activity: Return to Normal Activity and May Not Drive (while taking narcotic pain medications.) Dressing / Incision Call your doctor if you observe: Fever of 101 or Higher Follow Up Care Please Follow Up With: Michoacano Keith MD When: Call [phone] for an appointment Test Results: Test results from this visit will be discussed in further detail at your follow- up appointment, if applicable. Discharge Plan Admission Attending Provider: Michoacano Keith Primary Care Provider: Rosy Teague Instructions Print Language: Slovenian Discharge Orders/Prescriptions Prescriptions: No Action aspirin 81 mg tablet,delayed release (DR/EC) 81 mg PO QDAY hydroxyzine HCl 25 mg tablet 25 mg PO TID PRN (Reason: anxiety) clopidogrel [Plavix] 75 mg tablet 75 mg PO QDAY Qty: 21 0RF albuterol sulfate 1 PUFF inhaler 1 puff INHALATION Q6H PRN (Reason: Sob &/Or Wheezing) clobetasol 0.05 % cream 1 applic topical DAILY PRN (Reason: yeast infection) atorvastatin 40 mg tablet 40 mg PO QHS oxycodone 5 mg tablet 5 mg PO Q6H PRN (Reason: pain) 3 Days Qty: 14 0RF metoprolol tartrate 25 mg tablet 25 mg PO BID Qty: 180 3RF Referrals / Follow Up: Rosy Teague MD [Primary Care Provider] - Disposition Disposition (needs filled in before D/C Order can be placed): Home, Self Care
--- NOTE | 2024-06-21 14:06 | PCM.HP.STD ---
HPI - General General Date of Service: 06/21/24 Chief Complaint: Bilateral kidney stones HPI Narrative MAHSA MORE, is a 43 F who presents for laser lithotripsy oriented laser the stones in the right kidney and also laser stone in the left kidney placed a stent on the left side. She is currently off her blood thinner and she is just on a baby aspirin. [facility] Medical History Hyperlipidemia Abnormal MRI of the head Back pain Migraine headache Wears contact lenses Wears glasses Anxiety MTHFR mutation Non-smoker History of stress test History of echocardiogram Cardiology follow-up encounter History of irregular heartbeat COVID (10/2021) AVNRT (AV linus re-entry tachycardia) Thrombocytopenia Pituitary adenoma Paroxysmal supraventricular tachycardia Asthma Home Medications ?Medication ?Instructions ?Recorded ?Last Taken ?Type albuterol sulfate 90 mcg/actuation 1 puff inhalation Q6H PRN Sob &/Or 09/24/20 Unknown History aerosol inhaler Wheezing metoprolol tartrate 25 mg tablet 25 mg PO BID #180 tabs 03/16/24 06/21/24 08:00 Rx clobetasol 0.05 % topical cream 1 applic topical DAILY PRN yeast 05/02/24 Unknown History infection aspirin 81 mg tablet,delayed 81 mg PO QDAY 05/29/24 06/15/24 History release clopidogrel 75 mg tablet (Plavix) 75 mg PO QDAY stroke #21 tabs 05/29/24 06/15/24 Rx hydroxyzine HCl 25 mg tablet 25 mg PO TID PRN anxiety 05/29/24 Unknown History atorvastatin 40 mg tablet 40 mg PO QHS 06/15/24 06/14/24 History oxycodone 5 mg tablet 5 mg PO Q6H PRN pain 3 days #14 06/16/24 Unknown Rx tabs Allergy/AdvReac Type Severity Reaction Status Date / Time ciprofloxacin (From Cipro) AdvReac PT UNSURE Verified 06/21/24 12:36 OF REACTION Family History Other Adopted Surgical History History of cystoscopy History of colonoscopy (05/22/22) History of radiofrequency ablation procedure for cardiac arrhythmia (04/30/09) H/O lumpectomy History of lithotripsy Social History Smoking Status: Never smoker alcohol intake: never Vital Signs Vital Signs Vital Signs: 06/21/24 12:40 06/21/24 12:40 Temperature 97.4 F L Temperature Source Temporal Pulse Rate 70 Respiratory Rate 16 Respiratory Pattern Normal Blood Pressure 115/80 Blood Pressure Mean 91 Blood Pressure Source Monitor Blood Pressure Position Semi-Fowlers Blood Pressure Location Left Arm Pulse Ox 100 Oxygen Delivery Method Room Air Weight Weight: 66 kg Body Mass Index (BMI) 23.5 Results Lab / Micro Data Labs: Laboratory Results - last 24 hr 06/21/24 12:31: Urine Test Negative
[2024-06-21] MEDS: Cefazolin 2 GM in Syringe IV (14:29)
--- NOTE | 2024-06-21 14:32 | PCM.OPRPT ---
Operative Report (Standard) Operative Information Surgery/Procedure Performed: bilateral ureteroscopy laser stone and stent on left. Surgeon: Michoacano Keith Date of Procedure: 06/21/24 Procedure Start Time: 14:32 Procedure Stop Time: 15:29 Pre-Operative Diagnosis: bilateral kidney stones. Post-Operative Diagnosis: same Select all DRAINS/GRAFTS/IMPLANTS that apply: Drains Drain details: left stent Type of Anesthesia: General Estimated Blood Loss: 0 Specimen collected: No Description of surgery: Patient is taken back to the operating room after smooth induction of anesthesia she was placed in dorsolithotomy position. The urethrovaginal area prepped and draped in usual sterile fashion within the bladder with a flexible ureteroscope went up the right ureter with assistance of a Glidewire once I got into the right kidney there was a stone in the pelvis of the right kidney this was lasered completely into tiny little pieces and then I worked my way down the ureter and did not put a stent on the right side symptoms of such a small stone that was lasered completely. Then the left side grabbed the existing stent pulled out the meatus put a wire through the stent and over the wire went in with a flexible ureteroscope I then got up to the left kidney and there was a large collection of stone fragments in the lower pole of the left kidney and I lasered the stones a little tiny pieces using the thulium laser fiber after all the stones was lasered into tiny little pieces there was a lot of little pieces but no major fragments I then put a wire up on that left side backloaded ureteroscope off the wire and put a stent up on the left side and left the string of the stent and cut the string short to prevent early extraction drain the bladder and patient anesthetic was reversed and we will see her next week for stent removal in the office. Surgical Findings: Stone in right lasered, and left stones lasered. stent placed left side. Office Automation Technician voucher examiner: No Complications Complications: No Admit VTE Documentation VTE Present on Admission: No VTE Mechan Device Prophylaxis: SCD's VTE Pharm Prophylaxis ordered?: No
--- NOTE | 2024-06-21 15:40 | PCM.POST.ANE ---
Anesthesia: Postop Eval I Current Vital Signs Temperature: 98.8 F Pulse Rate: 72 Blood Pressure: 97/61 Respiratory Rate: 18 Pulse Ox: 100 Oxygen Delivery Method: Room Air Assessment Airway patent: Yes Spontaneous unlabored respirations: Yes Mental status: Awake and Calm nausea: No Vomiting: No Anesthesia Complication: No Fluid Hydration Crystalloid volume administer (ml): 1,000 Total IV fluid infused: 1,000 Progress Note Anesthesia document: Postop Eval 1 completed: Yes
--- NOTE | 2024-06-21 16:17 | POSTOPAN2_ITS ---
Anesthesia Postop Eval I Sum Postop Eval Completion status Anesthesia document: Postop Eval 1 completed: Yes Anesthesia Postop Eval I Summary Anesthesia Postop Eval I Summary: Anesthesia Postop Eval I: Assessment Summary Airway patent Yes 06/21/24 15:41 INDEPENDENT DISTRIBUTOR.[email or web address] Spontaneous unlabored Yes 06/21/24 15:41 INDEPENDENT DISTRIBUTOR.[email or web address] respirations Mental status Awake,Calm 06/21/24 15:41 INDEPENDENT DISTRIBUTOR.[email or web address] nausea No 06/21/24 15:41 INDEPENDENT DISTRIBUTOR.[email or web address] Vomiting No 06/21/24 15:41 INDEPENDENT DISTRIBUTOR.[email or web address] Anesthesia Postop Eval I: Fluid Summary Crystalloid volume administer 1,000 06/21/24 15:41 INDEPENDENT DISTRIBUTOR.[email or web address] (ml) Colloids volume administered ( ml) Blood Product volume administered (ml) Total IV fluid infused 1,000 06/21/24 15:41 INDEPENDENT DISTRIBUTOR.[email or web address] Anesthesia Postop Eval I: Summary Notes Anesthesia Complication No 06/21/24 15:41 INDEPENDENT DISTRIBUTOR.CORETTAOBAnthony Anesthesia Complication Comment: Post-operative progress note Anesthesia: Postop Eval II Evaluation Mental status: Awake and Calm Pain Level: 1 nausea: No Vomiting: No Complications Anesthesia Complication: No
--- NOTE | 2024-06-21 16:17 | PCM.POSTANE2 ---
Anesthesia Postop Eval I Sum Postop Eval Completion status Anesthesia document: Postop Eval 1 completed: Yes Anesthesia Postop Eval I Summary Anesthesia Postop Eval I Summary: Anesthesia Postop Eval I: Assessment Summary Airway patent Yes 06/21/24 15:41 BEATER [email or web address] Spontaneous unlabored Yes 06/21/24 15:41 BEATER LEAD.[email or web address] respirations Mental status Awake,Calm 06/21/24 15:41 BEATER [email or web address].[email or web address] nausea No 06/21/24 15:41 BEATER LEAD.[email or web address] Vomiting No 06/21/24 15:41 BEATER LEAD.[email or web address] Anesthesia Postop Eval I: Fluid Summary Crystalloid volume administer 1,000 06/21/24 15:41 BEATER LEAD.[email or web address] (ml) Colloids volume administered ( ml) Blood Product volume administered (ml) Total IV fluid infused 1,000 06/21/24 15:41 BEATER LEAD.[email or web address] Anesthesia Postop Eval I: Summary Notes Anesthesia Complication No 06/21/24 15:41 BEATER LEAD.[email or web address] Anesthesia Complication Comment: Post-operative progress note Anesthesia: Postop Eval II Evaluation Mental status: Awake and Calm Pain Level: 1 nausea: No Vomiting: No Complications Anesthesia Complication: No
== END 2024-06-21 16:54 | disposition home or self-care (01) ==
LOC: SDC 12:03 → AC 12:04
PROVIDERS: Anesthesiology; PCP Family Medicine; Referring Provider Urology; Visit Provider Urology
PROC: 0TJ98ZZ Inspection of Ureter, Via Natural or Artificial Opening Endoscopic (ICD-10-PCS; CPT 52352; principal; 2024-06-21 13:55)
DX: N20.0 Calculus of kidney (principal); J45.909 Unspecified asthma, uncomplicated; Z79.82 Long term (current) use of aspirin; Z86.16 Personal history of COVID-19; Z79.899 Other long term (current) drug therapy; Z79.51 Long term (current) use of inhaled steroids
CPT/HCPCS: 52356; 00873; 81025; J7120; C1769; C2617; J2405

== ENCOUNTER → 2024-06-27 | Outpatient (CLI) | payer OTHER, SELFPAY ==
--- NOTE | 2024-06-27 07:54 | CT_ITS ---
STUDY: CT CHEST WITHOUT CONTRAST REASON FOR EXAM: Female, 43 years old. CVA RADIATION DOSAGE (If Supplied By Facility): CTDIvol = ( 12.19 ) mGy, DLP = ( 219.42 ) mGycm TECHNIQUE: Transaxial imaging was performed without the administration of intravenous contrast material. Cardiac Overread examination. Individualized dose optimization techniques were used for this CT. COMPARISON: No relevant priors. FINDINGS: CHEST The lungs are normal. There is no demonstrated pleural abnormality. Normal heart and pericardium. No coronary artery calcification seen. Normal mediastinum. Normal hilar regions. Normal unenhanced pulmonary arteries. Normal aorta arch and descending thoracic aorta. Normal osseous structures. There is no demonstrated abnormality of the visualized upper abdomen. CT/Limited Chest CT Cardiac Only IMPRESSION: Normal unenhanced CT chest examination. Electronically Signed: Ugo Espinoza MD at 8:48 EST ,
--- NOTE | 2024-07-07 08:13 | CA.SCORE ---
Calcium Scoring Date of Study:: 06/27/24 Indications Indications: cva Coronary Calcium Scoring: High-resolution Computed Tomographic imaging of the chest was performed on [06/27/24], with particular attention paid to the coronary arteries. Images from the examination were analyzed for the presence and extent of coronary artery calcification , using coronary calcium quantification software. The patient tolerated the procedure well and there were no complications. The results of the coronary calcification analysis are provided below. Findings Coronary Artery Left Main (LM): 0 Left Anterior Descending (LAD): 0 Left Circumflex (LCX): 0 Right Coronary Artery (RCA): 0 Total Agatston Score: 0 Percentile Rankin% Calcium Scoring Interpretation: Different methods to categorize the overall amount of coronary plaque. Overall amount CAC SIS Visual of coronary plaque P1 Mild -100 <2 1-2 vessels with mild amount of plaque P2 Moderate 101-300 3-4 1-2 vessels with moderate amount, 3 vessels with mild amount of plaque P3 Severe 301-999 5-7 3 vessels with moderate amount, 1 vessel with severe amount of plaque P4 Extensive >1000 >8 2-3 vessels with severe amount of plaque Conclusion: No atherosclerotic plaquing noted
== END | disposition home or self-care (01) ==
LOC: CT 07:52
PROVIDERS: PCP Family Medicine; Referring Provider Physician Assistant Medical; Visit Provider Physician Assistant Medical
DX: I63.9 Cerebral infarction, unspecified (principal); E78.5 Hyperlipidemia, unspecified
CPT/HCPCS: 75571; 76380

== ENCOUNTER → 2024-07-10 | Outpatient (CLI) | payer OTHER, SELFPAY ==
--- NOTE | 2024-07-10 17:30 | CT_ITS ---
STUDY: CT BRAIN WITH AND WITHOUT CONTRAST REASON FOR EXAM: Female, 43 years old. stroke 8 WEEKS AGO RADIATION DOSAGE (If Supplied By Facility): CTDIvol = ( 44.99 ) mGy, DLP = ( 1625.96 ) mGycm TECHNIQUE: Transaxial CT imaging of the brain was performed pre and post contrast administration. The examination was performed with intravenous administration of IV 100mL Isovue-370. Individualized dose optimization techniques were used for this CT. The protocol utilizes one or more of the following dose reduction techniques: automated exposure control, adjustment of mA and/or kV according to patient size,and/or use of iterative reconstruction technique. COMPARISON: MR brain May 16, 2024. CT brain September 11, 2009 images without report. FINDINGS: Normal soft tissue structures. Normal calvarium. Normal size ventricles and extra-axial spaces for the patient''s age. Normal white matter tracts of the cerebral hemispheres. Normal basal ganglia and thalami. Normal brainstem. Normal cerebellum. There is no intracranial hemorrhage. Encephalomalacia mesial aspect right occipital lobe. Normal visualized paranasal sinuses. CT/Brain/Head W/WO Contrast IMPRESSION: Subacute or remote infarct right [employer] territory Electronically Signed: Eitan Lugo MD at 17:17 EST ,
--- NOTE | 2024-07-10 17:30 | CT_ITS ---
STUDY: CTA HEAD AND NECK WITH CONTRAST REASON FOR EXAM: Female, 43 years old. STROKE 8 WEEKS AGO RADIATION DOSAGE (If Supplied By Facility): CTDIvol = ( 19.24 ) mGy, DLP = ( 718.77 ) mGycm TECHNIQUE: CT angiography was performed with a multi-detector CT scanner. Data acquisition was obtained from the skull base through the vertex following intravenous administration of IV 100mL Isovue-370. MIP images were reconstructed from the axial data set. Post-processing of the angiographic images was performed, with multiplanar reformation and 3D reconstruction. Individualized dose optimization techniques were used for this CT. The protocol utilizes one or more of the following dose reduction techniques: automated exposure control, adjustment of mA and/or kV according to patient size,and/or use of iterative reconstruction technique. COMPARISON: Noncontrast CT brain from today. FINDINGS: Normal bilateral petrous carotid arteries. Normal right cavernous carotid artery with a normal supraclinoid bifurcation. Normal left cavernous carotid artery with a normal supraclinoid bifurcation. Normal right A1 segments of the anterior cerebral artery. Normal left A1 segments of the anterior cerebral artery. Normal intact anterior communicating artery (ACOM). Normal bilateral A2 segments of the anterior cerebral arteries. Normal right M1 and M2 segments of the middle cerebral arteries, with a normal M1 bifurcation. Normal left M1 and M2 segments of the middle cerebral arteries, with a normal M1 bifurcation. There is non-visualization of the right posterior communicating artery (PCOM). There is non-visualization of the left posterior communicating artery (PCOM). Normal bilateral vertebral arteries. Normal basilar artery with a normal basilar bifurcation. The visualized bilateral superior cerebellar (SCA) arteries are normal. Normal bilateral P1, P2 and visualized P3 segments of the posterior cerebral arteries. Distal posterior cerebral arteries are not well visualized. There is no demonstrated aneurysm of the [place]. Remote infarct right occipital cortex medially. AORTIC ARCH: Normal visualized aortic arch. Normal origins of the brachiocephalic, left common carotid, and left subclavian arteries. RIGHT CAROTID ARTERIES: Normal right common carotid artery (CCA). Normal right common carotid bulb. Normal origin of the right internal carotid (ICA) artery without a hemodynamically significant stenosis. Normal visualized cervical portion of the right internal carotid artery. Normal origin of the right external carotid artery (ECA). LEFT CAROTID ARTERIES: Normal left common carotid artery (CCA). Normal left common carotid bulb. Normal origin of the left internal carotid (ICA) artery without a hemodynamically significant stenosis. Normal visualized cervical portion of the left internal carotid artery. Normal origin of the left external carotid artery (ECA). VERTEBRAL ARTERIES: Normal bilateral vertebral arteries. CT/CTA Head AND Neck W/ Contrast IMPRESSION: Remote infarct right occipital lobe. No large vessel occlusion noted although the distal posterior cerebral arteries are not well visualized. Electronically Signed: Eitan Lugo MD at 17:26 EST ,
== END | disposition home or self-care (01) ==
PROVIDERS: PCP Family Medicine; Referring Provider Psychiatry & Neurology Neurology; Visit Provider Psychiatry & Neurology Neurology
DX: I63.9 Cerebral infarction, unspecified (principal)
CPT/HCPCS: 70470; 70496; 70498; Q9967

== ENCOUNTER → 2024-07-17 | Outpatient (CLI) | payer OTHER, SELFPAY ==
[2024-07-17 10:46] LABS: AST(SGOT) 34 U/L (15-37); Alanine Aminotransfer ALT/SGPT 30 U/L (13-56); Albumin, Serum 3.7 g/dL (3.2-5.0); Alkaline Phosphatase 103 U/L (45-117); Bilirubin, Direct 0.31 mg/dL (0.00-0.30); Cholesterol 121 mg/dL (200); Globulin 4.3 g/dL (2.2-4.2); High Density Lipoprotein 58 mg/dL; Triglycerides 80 mg/dL; Very Low Density Lipoprotein 16 mg/dL (5-40)
== END | disposition home or self-care (01) ==
LOC: LAB 09:51
PROVIDERS: PCP Family Medicine; Referring Provider Physician Assistant Medical; Visit Provider Physician Assistant Medical
DX: E78.5 Hyperlipidemia, unspecified (principal); I63.9 Cerebral infarction, unspecified; I47.10 Supraventricular tachycardia, unspecified
CPT/HCPCS: 36415; 80061; 80076

== ENCOUNTER → 2025-02-19 | Outpatient (CLI) | payer OTHER, SELFPAY ==
--- NOTE | 2025-02-19 09:21 | RAD_ITS ---
EXAM: XR Abdomen, 1 View CLINICAL INDICATION: CALCULUS OF KIDNEY TECHNIQUE: Frontal supine view of the abdomen/pelvis. COMPARISON: No relevant prior studies available. FINDINGS: GASTROINTESTINAL TRACT: Unremarkable. No dilation. ORGANS: Probable 2 mm calculus of the right renal kidney. BONES/JOINTS: Unremarkable. No acute fracture. RAD/Abdomen Single View IMPRESSION: Probable right nephrolithiasis. Reading Location: [facility]
== END | disposition home or self-care (01) ==
LOC: RAD 09:20
PROVIDERS: PCP Family Medicine; Referring Provider Urology; Visit Provider Urology
DX: N20.0 Calculus of kidney (principal)
CPT/HCPCS: 74018

== ENCOUNTER → 2025-03-21 | Outpatient (CLI) | payer OTHER, SELFPAY ==
[2025-03-26 11:08] LABS: Age Gdln ACOG Testing 30-65 (.); HPV APTIMA, High Risk Negative (Negative)
== END | disposition home or self-care (01) ==
LOC: LABSPEC 12:53
PROVIDERS: PCP Family Medicine; Referring Provider Family Medicine; Visit Provider Family Medicine
DX: Z12.4 Encounter for screening for malignant neoplasm of cervix (principal)
CPT/HCPCS: 87624; 88175; G0145

== ENCOUNTER → 2025-06-04 | Outpatient (CLI) | payer OTHER, SELFPAY ==
--- NOTE | 2025-06-04 10:47 | CT_ITS ---
PROCEDURE: CT/Abdomen/Pelvis without Cont
== END | disposition home or self-care (01) ==
LOC: CT 10:40
PROVIDERS: PCP Family Medicine; Referring Provider Urology; Visit Provider Urology
DX: N20.0 Calculus of kidney (principal); N30.00 Acute cystitis without hematuria
CPT/HCPCS: 74176

== ENCOUNTER → 2025-06-19 | Outpatient (CLI) | payer OTHER, SELFPAY | END | disposition home or self-care (01) | LOC: LABSPEC 15:05 | PROVIDERS: PCP Family Medicine; Referring Provider Urology; Visit Provider Urology | DX: N39.0 Urinary tract infection, site not specified (principal) | CPT/HCPCS: 87086; 87088 ==

== ENCOUNTER → 2025-06-21 | Outpatient (CLI) | payer OTHER, SELFPAY | END | disposition home or self-care (01) | LOC: LAB 12:27 | PROVIDERS: PCP Family Medicine; Referring Provider Urology; Visit Provider Urology | DX: N39.0 Urinary tract infection, site not specified (principal); E78.00 Pure hypercholesterolemia, unspecified | CPT/HCPCS: 87086; 87088 ==